=== PATIENT | male | born 1940 | race Caucasian/White ===

== ENCOUNTER 2021-02-15 06:47 | Inpatient (IN) | payer MEDICARE ==
[~2021-02-15] VITALS: Ht 177.8 cm; Wt 107.8 kg
[2021-02-16] MEDS ORDERED: ONDANSETRON 4 MG (ZOFRAN) ORAL DISSOLVE TAB PO PRN (06:00)
[2021-02-16] MEDS ORDERED: LOPERAMIDE 2 MG (IMODIUM) TABLET PO PRN (06:00)
[2021-02-16] MEDS ORDERED: FLEET ENEMA ADULT 1 EA BTL PR PRN (06:00)
[2021-02-16] MEDS ORDERED: LACTULOSE SYRUP 10GM/15ML (ENULOSE) 30ML UDC PO PRN (06:00)
[2021-02-16] MEDS ORDERED: DOCUSATE SODIUM 100 MG (COLACE) CAP PO PRN (06:00)
[2021-02-16] MEDS ORDERED: diphenhydrAMINE 25 MG TAB (BENADRYL) PO PRN (06:00)
[2021-02-16] MEDS ORDERED: guaiFENesin/CODEINE (ROBITUSSIN AC) 10ML UDC PO PRN (06:00)
[2021-02-16] MEDS ORDERED: ALPRAZolam 0.25 MG (XANAX) TAB PO PRN (06:00)
[2021-02-16] MEDS: SENNA W/DOCUSATE (SENOKOT S) TABLET PO SCH ×2 (09:00→20:16)
[2021-02-16] MEDS ORDERED: polyethylene glycoL POWDER 17 GM (MIRALAX) PACK PO SCH (09:00)
[2021-02-16 13:08] VITALS: BP 132/63
--- OUTSIDE RECORDS SUMMARY | 2021-02-16 13:09 | XMS REPORT | Encounter Summary ---
[facility] Address Unknown Phone Unavailable Care Team Providers Care [employer] Project Manager Name Role Phone Salvador Rasmussen MD PCP Reason for Visit * Cardiac Procedures (Routine) - Closed Diagnoses / Procedures Referred By Contact Referred To Conta ct Specialty Diagnoses Pain in both lower legs Procedures Ultrasound MYRNA With and Without Toe Pressures Bilateral Toby Bruno MD [address] [place] [id number] [facility] [address] [place] [phone] Cardiology Referral ID Status Reason Start Date Expiration Visits Vi sits Date Requested Authorized [id number] Closed 02/02/2021 01/28/2022 1 1 Encounter Details Care Team Description Date Type Department Pain in both lower legs 02/10/2021 [facility] [address] [place] [phone] Social History Date Tobacco Use Types Packs/Day Years Used Never Smoker Smokeless Tobacco: Never Used Comments Alcohol Use Standard Drinks/Week Never 0 (1 standard drink = 0.6 o z pure alcohol) Sex Assigned at Date Recorded Not on file Industry Job Start Date Occupation Not on file Not on file Not on file Date Recorded COVID-19 Exposure Response 02/10/2021 2:36 PM CDT In the last month, have you been in contact with No / Unsure someone who was confirmed or suspected to have Coronavirus / COVID-19? documented as of this encounter Plan of Treatment Care Team Description Date Type Specialty Oriana Blandon, PROPERTY DISPOSAL MANAGER-[employer] PROJECT MANAGER [address] [place] [phone] 08/04/2021 Office Visit Cardiology documented as of this encounter Procedures Comments Procedure Name Priority Date/Time Associated Diag nosis MYRNA W/WO TOE PRESSURES Routine 02/10/2021 Pain in both lower legs BILAT VASC 3:11 PM CDT documented in this encounter Results * MYRNA W/WO TOE PRESSURES BILAT VASC (02/10/2021 3:11 PM CDT) Modality Anatomical Region Laterality Ultrasound Lower Leg, Ankle, Foot Specimen Narrative [facility] - 02/11/2021 8:17 AM CDT Date of Exam:02/10/21 MR#: [id number] Patient: Macario Nelson Referring Physician: Toby Bruno Date of : 1940 Technologist: Reta Cheng RDCS, RVT INDICATION: Pain in both lower legs PREVIOUS EXAM: Interpreting Physician: DIA Interpretation: Normal Performing Organization Address City/State/ZIP Code P kelly Number [facility] documented in this encounter Visit Diagnoses Diagnosis Pain in both lower legs documented in this encounter Care Teams Start Date End Date [employer] Project Manager Relationship Specialty 01/21/21 Salvador Rasmussen MD PCP - General Family [address] [place] [address] documented as of this encounter
--- OUTSIDE RECORDS SUMMARY | 2021-02-16 13:09 | XMS REPORT | Encounter Summary ---
[facility] Address Unknown Phone Unavailable Care Team Providers Care Insurance Verification Clerk Name Role Phone Salvador Rasmussen MD PCP Reason for Referral * Consultation (Routine) - Authorized Diagnoses / Procedures Referred By [facility] Palpitations PVC (premature ventricular contraction) Toby Bruno MD [address] [place] [phone] Olivier Coelho MD [address] [place] [id number] Cardiology Referral ID Status Reason Start Date Expiration Visits Vi sits Date Requested Authorized [id number] Authorized Patient Request 02/02/2021 01/28/2022 1 1 * Cardiac Procedures (Routine) - Authorized Diagnoses / Procedures Referred By Contact Referred To [facility] Specialty Diagnoses Atherosclerosis of [place] coronary artery of [place] heart with angina pectoris (HCC) Procedures Ultrasound Doppler Carotid Tboy Bruno MD [address] [place] [phone] [facility] [address] [place] [phone] Cardiology Referral ID Status Reason Start Date Expiration Visits Vi sits Date Requested Authorized [id number] Authorized 02/02/2021 01/28/2022 1 1 * Cardiac Procedures (Routine) - Closed Diagnoses / Procedures Referred By Contact Referred To [facility] Specialty Diagnoses Pain in both lower legs Procedures Ultrasound MYRNA With and Without Toe Pressures Bilateral Toby Bruno MD [address] [place] [phone] [facility] [address] [place] [address] Cardiology Referral ID Status Reason Start Date Expiration Visits Vi sits Date Requested Authorized [id number] Closed 02/02/2021 01/28/2022 1 1 * Cardiac Procedures (Routine) - Closed Diagnoses / Procedures Referred By Contact [facility] Atherosclerosis [place] coronary artery of [place] heart with angina pectoris (HCC) Nonrheumatic aortic valve stenosis Palpitations PVC (premature ventricular contraction) Shortness of breath Procedures Transthoracic Echo (TTE) Complete TRANSTHORACIC ECHO (TTE) COMPLETE TRANSTHORACIC ECHO (TTE) COMPLETE W/ DOPPLER TRANSTHORACIC ECHO (TTE) COMPLETE W/ CONTRAST TRANSTHORACIC ECHO (TTE) COMPLETE NO DOPPLER NO COLOR Toby Bruno MD [address] [place] [phone] [facility] [address] [place] [address] Cardiology Referral ID Status Reason Start Date Expiration Visits Vi sits Date Requested Authorized [id number] Closed 02/02/2021 01/28/2022 1 1 Encounter Details Care Team Description Date Type Department Toby Bruno MD [address] [place] [id number] Atherosclerosis of [place] coronary arter y of [place] heart with angina pectoris (HCC) (Primary Dx); Shortness of breath; Palpitations; Nonrheumatic aortic valve stenosis; PVC (premature ventricular contraction); Pain in both lower legs; Essential hypertension; Hyperlipidemia, unspecified hyperlipidemia type; Class 1 obesity with serious comorbidity and body mass index (BMI) of 33.0 to 33.9 in adult, unspecified obesity type 02/02/2021 Consult [facility] Cardiology [address] [phone] Social History Date Tobacco Use Types Packs/Day Years Used Never Smoker Smokeless Tobacco: Never Used Comments Alcohol Use Standard Drinks/Week Never 0 (1 standard drink = 0.6 o z pure alcohol) Sex Assigned at Date Recorded Not on file Industry Job Start Date Occupation Not on file Not on file Not on file Date Recorded COVID-19 Exposure Response 02/02/2021 2:52 PM CDT In the last month, have you been in contact with No / Unsure someone who was confirmed or suspected to have Coronavirus / COVID-19? documented as of this encounter Last Filed Vital Signs Reading Time Taken Comments Vital Sign 122/64 02/02/2021 2:52 PM CDT Blood Pressure 65 02/02/2021 2:52 PM CDT Pulse - - Temperature 16 02/02/2021 2:52 PM CDT Respiratory Rate 98% 02/02/2021 2:52 PM CDT Oxygen Saturation - - Inhaled Oxygen Concentration 105 kg (232 lb) 02/02/2021 2:52 PM CDT Weight 177.8 cm (5' 10") 02/02/2021 2:52 PM CDT Height 33.29 02/02/2021 2:52 PM CDT Body Mass Index documented in this encounter Patient Instructions * Patient Instructions* Xiang Riddle II, RN - 02/02/2021 3:00 PM CDT Images from the original note were not included. Check your blood pressure at least 2 times a week and keep a log. If your blood pressure is consistently higher than 130/80 then call our office and report it. Call our office if you have any questions or concerns. Patient Education Patient Education Low Salt Diet About this topic Sodium is a type of mineral found in many foods. It may also be called "salt." S odium helps balance fluids in your body. Too much sodium may be bad for your hea lth. You may have to limit the amount of sodium in your food. Salt is known as sodium chloride. It is measured in grams (g) or milligrams (mg) . Salt or sodium in our diet comes from 3 main sources: Some sodium is naturally found in food. We may add salt to our food when we eat or cook. Processed foods give us most of the sodium in our diet. What will the results be? This diet may help lower your blood pressure. It may also help reduce extra wate r in your body. This may help kidney, heart, or liver problems. What changes to diet are needed? You need to know how much sodium is in the food you eat. Read food labels with c are. Choose foods that have 5% or less sodium in one serving. Remember, if you e at more than one serving, you will be getting more sodium. It may take a while f or your sense of taste to get used to food with less sodium. Be patient with you rself. You may be surprised at how well you will do. Try to aim for a diet that has 2000 mg (2 g) or less sodium in it each day. The Food & Drug Administration (FDA) has set up guidelines for food labels. These will help you make healthy choices. Look for these terms on food packages: Sodium-free: Less than 5 mg in each serving. These are safe to eat. Very low sodium: 35 mg of sodium or less in each serving. These are safe to e at. Low sodium: 140 mg of sodium or less in each serving. You need to eat these w ith care. Reduced sodium: At least 25% less sodium than is most often found in each ser ving. These foods are still high in sodium. Light in sodium: 50% less sodium in each serving. Unsalted, no added salt, and without added salt: No salt is added during proc essing, but the food may still have sodium. Read the food label and check the so dium content before eating. What foods are good to eat? You can control the amount of sodium in foods you make at home. Fresh foods that you cook are most often lower in sodium. Regular bread, unsalted crackers, dry cereal, cooked rice, pasta, quinoa, and corn tortillas. Fresh, frozen, low sodium, or salt-free canned vegetables. Limit vegetable ju ice or tomato juice to 1/2 cup (120 mL) each day. Fresh, frozen, canned, or dried fruit without salt added Nonfat or low-fat milk and yogurt, low-sodium cottage cheese, and other chees es low in sodium. Fresh or frozen beef, veal, singh, pork, poultry, fish, shellfish Low sodium canned meats, frozen dinners with less than 600 mg sodium Unsalted corn, safflower, sunflower, and soybean oils and nuts and seeds Egg and egg substitutes without added sodium Dried peas, beans, and low-sodium peanut butter All plain oils and low-sodium salad dressing Low-sodium broths, soups, soy sauce, condiments, and snack foods Pepper, herbs, spices, vinegar, lemon or [place] juice Low-sodium carbonated drinks What foods should be limited or avoided? Foods that are prepackaged or canned are most often high in sodium. Foods to contreras id include: Salted breads, rolls, crackers, biscuits, cornbread Quick breads, self-rising flours, biscuit mixes, regular bread crumbs, instan t hot cereals Commercially prepared rice, pasta, or stuffing mixes; potatoes and vegetable mixes Regular canned vegetables and juices, vegetables with sauce, and pickled vege tables Frozen vegetables with seasonings and sauces Processed fruits with salt or sodium Malted and chocolate milk and buttermilk Regular and processed cheese and spreads Smoked, cured, salted, or canned meat, fish, or poultry such as montero, sausag es, sardines, chipped beef, hot dogs, cold cuts, and frozen breaded meats Salted and canned peas, beans, and olives Salted snack foods and nuts Oils mixed with high-sodium parts such as salad dressing Meat tenderizers, seasoning salt, and most flavored vinegars Ketchup, bouillon cubes, salt, sea salt, kosher salt, onion salt, garlic salt , and pink Himalayan salt Commercially softened water What can be done to prevent this health problem? Check with your doctor before using salt substitutes. Also, check the labels whe n taking goct-jyt-qomdjyc (OTC) drugs such as laxatives and antacids. These can have a high sodium content. When do I need to call the doctor? Call your doctor if you have questions about this diet. Talk to a dietitian. The y can help you find hidden sources of sodium in the food you eat. Helpful tips Use the nutrition facts labels as a guide to look for foods lower in sodium. Do not use salt when eating or cooking. Select fresh fruits and vegetables for snacks. If you are eating out, ask the sushi chef to cook your food without salt, or choose foods without sauces. Season your food with herbs and spices. Drain and rinse canned beans and vegetables that contain sodium. Eat foods with potassium. Potassium helps counter the effects of sodium. This may help lower your blood pressure. Foods high in potassium include: Potatoes, tomatoes, bananas, oranges, cantaloupe, beans, and greens. Where can I learn more? [employer] https://www.heart.org/en/healthy-living/healthy-eating/eat-smart/sodium/how-to-r educe-sodium [employer] [employer] https://www.heart.org/en/healthy-living/healthy-eating/eat-smart/nutrition-basic s/dnuy-yvknrwhcx-kelpji NHS https://www.nhs.uk/live-well/eat-well/ajiz-yga-y-toqhr-bnqc-ooeq/ UpToDate http://www.[employer]/contents/hai-tjrvyl-avry-bbsaqw-jer-kutdwp Last Reviewed Date 2019-04-11 Consumer Information Use and Disclaimer This information is not specific medical advice and does not replace information you receive from your health care provider. This is only a brief summary of gen eral information. It does NOT include all information about conditions, illnesse s, injuries, tests, procedures, treatments, therapies, discharge instructions or life-style choices that may apply to you. You must talk with your health care p crispin for complete information about your health and treatment options. This i nformation should not be used to decide whether or not to accept your health car e providers advice, instructions or recommendations. Only your health care pr enmaer has the knowledge and training to provide advice that is right for you. Copyright Copyright 2020 Man[employer] by [employer]. and its affiliates and/or licensors. All rights reserved. Patient Education Patient Education Low Cholesterol, Saturated Fat, and Trans Fat Diet About this topic Cholesterol, saturated fat, and trans fat are in many foods. These may raise you r blood cholesterol levels. If your cholesterol is too high, this can cause heal th problems in your heart, liver, kidneys, and even your eyes. The luna to loweri ng your risk of heart problems is to lower your bad fat intake. Saturated fats and trans fats are the bad fats. These fats clog your arteries an d raise your bad cholesterol. Saturated fats and trans fats are solid fats at ro om temperature. Saturated fats are animal fats. Trans fats are manmade fats. The y add flavor to a lot of packaged foods. Staying away from saturated and trans f ats will help your heart. When you do eat foods with fat, make sure they have the good fats. Monounsaturat ed and polyunsaturated fats are good fats. These fats help raise your good amilcar sterol and protect your heart. General How to Lower Fat and Cholesterol in Your Diet Read the labels of the foods you buy from the market to find out how much fat is present. Under 5% of total fat on a label means it is "low fat". Over 20% of total fat on a label means it is high fat. Eat high fiber foods, like soluble fiber. This type of fiber helps lower chol esterol in the body. Choose oatmeal, fruits (like apples), beans, and nuts to ge t the most soluble fiber. Eat foods high in omega-3 fatty acids like santiago seeds, walnuts, salmon, tuna, trout, gutierrez, flaxseed, and soybeans. These foods help keep the heart healthy. Limit your bad fat and oil intake. Stay away from butter, stick margarine, shortening, lard, and palm and coconu t oil. Pick plant-based spreads instead. Limit mayonnaise, salad dressings, gravies, and sauces, unless it is made fro m low-fat ingredients. Limit chocolate. Do not eat high-fat processed foods like hot dogs, montero, sausage, ham and ot her luncheon meats high in fat, and some frozen foods. Pick fish, chicken, turke y, and lean meats instead. Eat more dried beans, lentils, and tofu to get your protein. Do not eat organ meats, like liver. Choose nonfat or low-fat milk, yogurt, and cheese. Use light or fat-free cream cheese and sour cream. Eat lots of fruits and vegetables. Pick whole grain breads, cereals, pastas, and rice. Do not eat snacks that are high in fats like granola, cookies, pies, pastries , doughnuts, and croissants. Stay away from deep fried foods. Help When Cooking Remove the fat portion of meats and the skin from poultry before cooking. Bake, broil, grill, poach, or roast poultry, fish, and lean meats. Drain and throw away the fat that drains out of meat as you cook it. Try to add little or no fat to foods. Use olive or canola oil for cooking or baking. Steam your vegetables. Use herbs or no-oil marinades to flavor foods. Who should use this diet? This diet is for people who are at high risk of getting health problems like hea rt disease, high blood pressure, diabetes, and others. This diet is also good fo r all people to follow to keep your heart healthy. What foods are good to eat? Foods with good fats are: Canola, peanut, and olive oil Safflower, soybean, and corn oil Walnuts, almonds, cashews, and peanuts Pumpkin and sunflower seeds Bunn and tuna Tofu Soymilk Avocado What foods should be limited or avoided? Stay away from these types of foods that have saturated fats: Whole fat dairy products like cheese, ice cream, whole milk, and cream Palm and coconut oils High-fat meats like beef, singh, poultry with the skin, montero, and sausage Butter and lard Stay away from these types of foods that may have trans fat: Cookies, cakes, candy, doughnuts, baked goods, muffins, pizza dough, and pie crusts that are packaged Fried foods Frozen dinners Chips and crackers Microwave popcorn Stick margarine and vegetable shortenings Helpful tips To help stay away from saturated fat: Pick lean cuts of meat Take the skin off chicken and turkey or pick skinless Pick low-fat cheese, milk, and ice cream Use liquid oils when cooking and baking, such as olive oil and canola oil To help stay away from trans fat: Look at your labels. Choose foods with 0% trans fat. Read the ingredient list . Avoid foods with partially hydrogenated oil in the ingredient list. This means there is trans fat in the product. Where can I learn more? [employer] http://www.heart.org/HEARTORG/Conditions/Cholesterol/PreventionTreatmentofHighCh olesterol/Amao-Ivya-Wccu_AFH_863470_Cqzcawm.jsp Last Reviewed Date 2019-01-31 Consumer Information Use and Disclaimer This information is not specific medical advice and does not replace information you receive from your health care provider. This is only a brief summary of gen eral information. It does NOT include all information about conditions, illnesse s, injuries, tests, procedures, treatments, therapies, discharge instructions or life-style choices that may apply to you. You must talk with your health care p crispin for complete information about your health and treatment options. This i nformation should not be used to decide whether or not to accept your health car e providers advice, instructions or recommendations. Only your health care pr jaret has the knowledge and training to provide advice that is right for you. Copyright Copyright 2020 [employer] and its affiliates and/or licensors. All rights reserved. Patient Education Patient Education Exercise The Basics Written by the doctors and editors at [employer] What are the benefits of exercise?Exercise has many benefits. It can: Burn calories, which helps people control their weight Help control blood sugar levels in people with diabetes Lower blood pressure, especially in people with high blood pressure Lower stress and help with depression Keep bones strong, so they don't get thin and break easily Lower the chance of dying from heart disease What are the main types of exercise?There are 3 main types of exercise. T hey are: Aerobic exercise Aerobic exercise raises a person's heart rate. Examples of aerobic exercise are walking, running, or swimming. Resistance training Resistance training helps make your muscles stronger. People can do this type of exercise using weights, exercise bands, or weight ma chines. Stretching Stretching exercises help your muscles and joints move more ea sily. It's important to have all 3 types of exercise in your exercise program. That wa y, your body, muscles, and joints can be as healthy as possible. Should I talk to my doctor or nurse before I start exercising?If you have not exercised before or have not exercised in a long time, talk with your doctor or nurse before you start a very active exercise program. If you have heart disease or risk factors for heart disease (like high blood pre ssure or diabetes), your doctor or nurse might recommend that you have an exerci se test before starting an exercise program. When you start an exercise program, start slowly. For example, do the exercise a t a slow pace or for a few minutes only. Over time, you can exercise faster and for longer periods of time. What should I do when I exercise?Each time you exercise, you should: Warm up Warming up can help keep you from hurting your muscles when you e xercise. To warm up, do a light aerobic exercise (such as walking slowly) or str etch for 5 to 10 minutes. Work out During a workout, you can walk fast, swim, run, or use an exerci se machine, for example. You should also stretch all of your joints, including y our neck, shoulders, back, hips, and knees. At least 2 times a week, you can add resistance training exercises to your workout. Cool down Cooling down helps keep you from feeling dizzy after you exerci se and helps prevent muscle cramps. To cool down, you can stretch or do a light aerobic exercise for 5 minutes. How often should I exercise?Doctors recommend that people exercise at el st 30 minutes a day, on 5 or more days of the week. If you can't exercise for 30 minutes straight, try to exercise for 10 minutes at a time, 3 or 4 times a day. Even exercising for shorter amounts of time can be good for you, especially if it means spending less time sitting. When should I call my doctor or nurse?If you have any of the following sy mptoms when you exercise, stop exercising and call your doctor or nurse right aw ay: Pain or pressure in your chest, arms, throat, jaw, or back Nausea or vomiting Feeling like your heart is fluttering or racing very fast Feeling dizzy or faint What if I don't have time to exercise?Many people have very busy lives an d might not think that they have time to exercise. But it's important to try to find time to exercise, even if you are tired or work a lot. Exercise can increas e your energy level, which might even help you get more work done. There are many ways that you can be more active. For example, you can: Take the stairs instead of the elevator Park in a parking space that is farther away from the door Take a longer route when you walk from one place to another Spending a lot of time sitting still for example, watching television or wor angelica on the computer can be bad for your health. Try to get up and move arou nd whenever you can. Even small amounts of movement, like short walks or doing h ousehold chores, can help improve your health. What else should I do when I exercise?To exercise safely and avoid proble ms, be sure to: Drink fluids during and after exercising (but avoid "energy drinks" with a lo t of caffeine) Avoid exercising outside if it is too hot or cold Wear layers of clothes, so that you can take them off if you get too hot Wear shoes that fit well and support your feet All topics are updated as new evidence becomes available and our peer review pro cess is complete. This topic retrieved from [employer] on: October 13, 2020. Topic 90865 Version 20.0 Release: 29.2.2 - C29.130 2020[employer] and/or its affiliates.All rights reserved. Consumer Information Use and Disclaimer This information is not specific medical advice and does not replace information you receive from your health care provider. This is only a brief summary of gen eral information. It does NOT include all information about conditions, illnesse s, injuries, tests, procedures, treatments, therapies, discharge instructions or life-style choices that may apply to you. You must talk with your health care p crispin for complete information about your health and treatment options. This i nformation should not be used to decide whether or not to accept your health car e provider's advice, instructions or recommendations. Only your health care prov ider has the knowledge and training to provide advice that is right for you.The use of [employer] content is governed by the [employer] Terms of Use. 2020 [employer]. All rights reserved. Copyright 2020[employer] and/or its affiliates.All rights reserved. documented in this encounter Progress Notes * Toby Bruno MD - 02/02/2021 3:00 PM CDT Images from the original note were not included. [facility] Consult Note Patient: Macario Nelson PCP: Salvador Rasmussen MD Date: 1940 Date of Service: 02/02/2021 Allergies Allergies Allergen Reactions Pdqjsyv-Pvz-Nxk Reductase Inhibitors Chief Complaint Coronary artery disease History of Present Illness Mr. Nelson presents to establish cardiology care. He has a fairly extensive car diac history remarkable for at least 1 previous non-ST elevated myocardial infar ction and 16 total drug-eluting stents. He has brought with him multiple cardia c records. His most recent echo 2018 demonstrated normal LV systolic function w ith mild LVH, grade 1 diastolic dysfunction, and mild aortic stenosis. His most recent stent was in July this year to distal ID. All his other stents were said to be patent. He had a nuclear stress test in approximately September which d emonstrated normal perfusion. He does have chronic stable angina with prolonged walking which begins with shortness of breath followed by mild chest discomfort. He does take a nitroglycerin infrequently which relieves his symptoms. He has mild chronic orthopnea but does not note paroxysmal nocturnal dyspnea. He has chronic edema which is controlled with his furosemide regimen. He has chronic kidney disease stage IV and is followed by certified pest control technician and [place]. He is plann ing to see Dr. Pacheco for his ventricular arrhythmias. Prior to relocating he re he had an event recorder. The results of that are not available. The patien t states he will forward that to us through my chart when he finds it at home. Cardiac Risk Factors [x] Hypertension [x] Family h/o heart disease [] Sedentary Lifestyle [x] Hyperlipidemia [x] Prior h/o heart disease [x] Age (male 45+ female 55+) [] Tobacco Abuse [x] Obesity [] Menopausal [] History of Tobacco Use [] Gout [] Other ASCVD [] Diabetes Mellitus [] Elevated hs CRP Past History Past Medical History: Diagnosis Date Asymptomatic PVCs CAD (coronary artery disease) Dyslipidemia Hx of heart artery stent Hypertension Ischemic cardiomyopathy Stable angina (HCC) Past Surgical History: Procedure Laterality Date APPENDECTOMY HYDROCELE EXCISION / REPAIR THROMBOLYSIS TOTAL KNEE ARTHROPLASTY Social History Social History Tobacco Use Smoking status: Never Smoker Smokeless tobacco: Never Used Substance Use Topics Alcohol use: Never Drug use: Never Family History Family History Problem Relation Age of Onset Heart attack Brother Coronary artery disease Brother Review of Systems Review of Systems Constitutional: Negative. HENT: Negative. Eyes: Positive for visual disturbance (wears glasses). Cardiovascular: Positive for claudication and palpitations. Respiratory: Positive for shortness of breath. Endocrine: Negative. Hematologic/Lymphatic: Negative. Skin: Negative. Musculoskeletal: Positive for joint pain and muscle cramps. Gastrointestinal: Negative. Genitourinary: Negative. Neurological: Positive for numbness. Psychiatric/Behavioral: Negative. Allergic/Immunologic: Negative. Medications Today Current Outpatient Medications: ascorbic acid-collagen 125-740 mg capsule, Take 125 mg by mouth 1 (one) sebastian e each day., Disp: , Rfl: aspirin 81 mg tablet, delayed release, Take 81 mg by mouth 1 (one) time eac h day., Disp: , Rfl: cholecalciferol, vitamin D3, 125 mcg (5,000 unit) tablet, Take 5,000 Units by mouth 1 (one) time each day., Disp: , Rfl: cinnamon bark 500 mg capsule, Take 500 mg by mouth 1 (one) time each day., Disp: , Rfl: clopidogreL (PLAVIX) 75 mg tablet, Take 75 mg by mouth 1 (one) time each da y., Disp: , Rfl: cyanocobalamin 100 mcg tablet, Take 100 mcg by mouth 1 (one) time each day. , Disp: , Rfl: furosemide (LASIX) 40 mg tablet, Take 40 mg by mouth 2 (two) times per day if needed., Disp: , Rfl: grape seed extract 50 mg capsule, Take 50 mg by mouth 1 (one) time each day ., Disp: , Rfl: multivitamin (THERAGRAN) tablet tablet, Take 1 tablet by mouth 1 (one) time each day., Disp: , Rfl: niacin (SLO-NIACIN) 500 mg CR tablet, Take 500 mg by mouth 1 (one) time eac h day., Disp: , Rfl: nitroglycerin (NITROSTAT) 0.4 mg SL tablet, Place 0.4 mg under the tongue e very 5 (five) minutes if needed., Disp: , Rfl: omega 2-nlc-ufm-fish oil 1,000 mg (120 mg-180 mg) capsule, Take 2 capsules by mouth 1 (one) time each day., Disp: , Rfl: omeprazole (PriLOSEC) 20 mg capsule, Take 10 mg by mouth 1 (one) time each day if needed., Disp: , Rfl: red yeast rice 600 mg capsule, Take 600 mg by mouth 1 (one) time each day., Disp: , Rfl: fnzbiud-jylm-fuqkt-oreg-capryl 100 mg-150 mg- 50 mg-150 mg capsule, Take 10 0 mg by mouth 1 (one) time each day., Disp: , Rfl: carvediloL (COREG) 12.5 mg tablet, Take 12.5 mg by mouth 1 (one) time each day. (Patient not taking: Reported on 02/02/2021 ), Disp: , Rfl: fenofibrate (TRIGLIDE) 160 mg tablet, Take 160 mg by mouth 1 (one) time eac h day. (Patient not taking: Reported on 02/02/2021 ), Disp: , Rfl: lisinopriL (Zestril) 5 mg tablet, Take 5 mg by mouth 1 (one) time each day. (Patient not taking: Reported on 02/02/2021 ), Disp: , Rfl: Physical Exam BP 122/64 (BP Location: Right arm, Patient Position: Sitting) | Pulse 65 | Res p 16 | Ht 1.778 m (5' 10") | Wt 105 kg (232 lb) | SpO2 98% | BMI 33.29 kg/m Body mass index is 33.29 kg/m. Physical Exam Vitals and nursing note reviewed. Constitutional: General: He is not in acute distress. Appearance: Normal appearance. He is obese. Neck: Thyroid: No thyroid mass, thyromegaly or thyroid tenderness. Vascular: No carotid bruit or JVD. Cardiovascular: Rate and Rhythm: Normal rate and regular rhythm. No extrasystoles are presen t. Chest Wall: PMI is not displaced. Pulses: Normal pulses and intact distal pulses. Heart sounds: Murmur heard. Systolic murmur is present with a grade of 1/6. Gallop present. S4 sounds present. Pulmonary: Effort: Pulmonary effort is normal. Breath sounds: Normal breath sounds. Abdominal: General: Abdomen is flat. Palpations: Abdomen is soft. Tenderness: There is no abdominal tenderness. Musculoskeletal: General: Normal range of motion. Cervical back: Full passive range of motion without pain, normal range of mot ion and neck supple. Skin: General: Skin is warm and dry. Neurological: General: No focal deficit present. Mental Status: He is alert and oriented to person, place, and time. Psychiatric: Attention and Perception: Attention and perception normal. Mood and Affect: Mood and affect normal. Speech: Speech normal. Behavior: Behavior normal. Behavior is cooperative. Thought Content: Thought content normal. Cognition and Memory: Cognition and memory normal. Judgment: Judgment normal. Does Macario Nelson have known CAD? yes, has not had an LA within the last 3 yea rs. or most recent EF is greater than 40% Does Macario Nelson have a diagnosis of heart failure? no. Does Macario Nelson have a diagnosis of heart failure?no. Does Macario Nelson currently use tobacco ? no. Is Macario Nelson BMI < 18.5 or > 25? Yes, provided patient appropriate education. Does Macario Nelson have a diagnosis of diabetes? Does the patient have a diagno sis of diabetes?: No Labs No results found for: WBC, HGB, HCT, MCV, PLT No results found for: GLUCOSE, CALCIUM, NA, K, CO2, CL, BUN, CREATININE, ALT, SM A, PROT No results found for: CHOL, HDL, LDLCALC, TRIG, CHOLHDL, LDLDIRECT No results found for: INR, PTT No results found for: BNP Impression 1. 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 Most recent distal LAD 07/26 - ECG 12 lead; Future - ECG 12 lead - Transthoracic Echo (TTE) Complete; Future - Ultrasound Doppler Carotid; Future 2. Shortness of breath Exertional. Chronic stable - Transthoracic Echo (TTE) Complete; Future 3. Palpitations ECG today demonstrates frequent PVCs and bigeminal pattern. Recent event record er not available - Transthoracic Echo (TTE) Complete; Future 4. Nonrheumatic aortic valve stenosis Mild by echo 2019. Due for reevaluation. - Transthoracic Echo (TTE) Complete; Future 5. PVC (premature ventricular contraction) Frequent on rest ECG. To significance from recent event recorder not known - Transthoracic Echo (TTE) Complete; Future 6. Pain in both lower legs Rule out significant peripheral arterial disease. - Ultrasound MYRNA With and Without Toe Pressures Bilateral; Future 7. Essential hypertension Normotensive on current meds 8. Hyperlipidemia, unspecified hyperlipidemia type Unable to take statins due to previous side effects. Treating with supplements 9. Class 1 obesity with serious comorbidity and body mass index (BMI) of 33.0 to 33.9 in adult, unspecified obesity type Plan 1. Current medications are reviewed and continued. 2. Add isosorbide mononitrate 30 mg daily. 3. Echocardiogram. 4. MYRNA. 5. Carotid Doppler. 6. We will review recent event recorder when available. 7. Referral to Dr. Pacheco at [facility] at patient request. 8. Cardiac follow-up here in 6 months IToby M.D. personally performed the service described in this do cumentation; it is accurate and complete. Scribed by Xiang Riddle II, RN and electronically signed by Toby Bruno M.D. Electronically signed by: Toby Bruno M.D. 02/02/2021 3:25 PM documented in this encounter Plan of Treatment Care Team Description Date Type Specialty Oriana Blandon, KETTLE LOADER-GLAZE CARRIER [address] [place] [id number] 08/04/2021 Office Visit Cardiology Order Schedule Name Type Priority Associated Diag noses Expected: 02/09/2021 (Approximate), Expi res: 03/04/2021 Ultrasound Doppler Vascular Routine Atheroscler osis of [place] Carotid Ultrasound coronary artery of [place] heart with angina pectoris (HCC) Order Schedule Name Type Priority Associated Diag noses Expected: 02/16/2021 (Approximate), Expi res: 03/04/2021 Ambulatory referral to Outpatient Routine Palpita tions Cardiac Electrophysiology Referral PVC (prematu re ventricular contraction) documented as of this encounter Procedures Comments Procedure Name Priority Date/Time Associated Diag nosis ECG 12-LEAD Routine 02/03/2021 Atherosclerosis of [place] 12:46 PM CDT coronary artery of [place] heart with angina pectoris (HCC) documented in this encounter Results * MYRNA W/WO TOE PRESSURES BILAT VASC (02/10/2021 3:11 PM CDT) Modality Anatomical Region Laterality Ultrasound Lower Leg, Ankle, Foot Specimen Narrative [facility] - 02/11/2021 8:17 AM CDT Date of Exam:02/10/21 MR#: [id number] Patient: Macario Nelson Referring Physician: Toby Bruno Date of : 1940 Technologist: Reta Cheng RDCS, RVT INDICATION: Pain in both lower legs PREVIOUS EXAM: Interpreting Physician: DIA Interpretation: Normal Performing Organization Address City/State/ZIP Code P kelly Number [facility] * Transthoracic Echo (TTE) Complete (02/05/2021 11:20 AM CDT) Modality Anatomical Region Laterality Ultrasound Specimen Narrative [facility] - 02/09/2021 4:59 PM CDT Name: Macario Nelson Date of study: 02/05/21 Date of : 1940 Medical Record: [id number] Room Number: Accession Number: [id number] Ht: 5'10" Wt: 232 BSA: 2.22 Senior Counsel Commercial: DUNCAN Thakur BP: 105/72 HR: Ordering Physician: Toby Bruno MD Study Performed: Transthoracic Echocardiogram Indication/History: Atherosclerosis of [place] coronary artery, nonrheumatic aortic valve stenosis, palpitations, PVC and shortness of breath. Procedure: Complete two dimensional transthoracic echocardiogram with spectral doppler and color flow evaluation. Study quality is technically adequate. Findings: Left ventricle: Left ventricular chamber size is normal. There is no evidence of left ventricular hypertrophy. The left ventricular function is normal. Estimated ejection fraction 60-65%. No evidence of regional wall motion abnormalities. Diastolic function is abnormal. Right ventricle: Right ventricular chamber size is normal. Right ventricular function is normal The right ventricular wall thickness is normal. Atria: Left atrial size is mildly enlarged. Left atrial volume is mildly increased. Right atrial size is normal. Aortic root: Aortic root is normal in size. Ascending aorta is normal in size. Aortic valve: The aortic valve is trileaflet Aortic stenosis is moderate. Mild to moderate (1-2+) aortic regurgitation. Mitral valve: The mitral valve is structurally normal. Mitral stenosis is absent. Moderate (2+) mitral regurgitation. Tricuspid valve: Morphologically normal tricuspid valve. Tricuspid stenosis is absent. Trace to mild (tr-1+) tricuspid regurgitation. Pulmonic valve: Morphologically normal pulmonic valve. Pulmonic stenosis is absent. Trace pulmonic regurgitation. Pulmonary arterial systolic pressure: Estimated pulmonary arterial systolic pressure is 35.5 mmHg. Pulmonary artery systolic pressures are borderline increased. Inferior vena cava: The inferior vena cava is normal in size and does collapse with inspiration consistent with normal right atrial pressures. Mass: No intracardiac mass or thrombus is noted. Effusion: Pericardial effusion is not visualized.. Conclusions: 1. Normal left-ventricular systolic func tion with EF 60 to 65% 2. 1-2+ aortic regurgitation 3. 2+ mitral regurgitation 4. Trace to 1+ tricuspid regurgitation 5. Borderline pulmonary hypertension No prior echo available Doppler ECHO DIMENSIONS Aortic Valve: LV Diastolic Diameter Peak Velocity (m/sec) 3.06 (3.7 5.8cm) 4.37 Peak Gradient (mmHg) 37.4 LV Systolic Diameter Mean Gradient (mmHg) 23.4 (2.0-.4cm) 3.66 Valve Area (cm2) IV Septal Thickness LV Peak Velocity (m/sec) (.6 1.1cm) 1.37 LVOTd (cm) 2.39 LV Posterior Wall Thickness AI EROA (cm2) (.6 1.1cm) 2.03 RV Max Short [place] Mitral Valve: (4.4cm) 2.13 Peak Velocity (m/sec) RV Wall Thickness E-Velocity (m/sec) (<.7cm) 1.05 A-Velocity (m/sec) Left Atrium Deceleration Time (m/sec) A-P (1.9 4.0cm) 2.60 Medial e I-S (3.0 5.5cm) 7.08 Lateral e Volume (16-34mL/m2) 30.0 E/e Right Atrium Peak Gradient (mmHg) I-S (3.0 5.5cm) 5.02 Mean Gradient (mmHg) Aortic Root P Time (msec) (2.2 3.6cm) 2.49 Valve Area (cm2) Ascending Aorta MR PISA (cm) (2.1 3.4cm) MR EROA (cm2) Cardiac Output (Lpm) Stroke Volume (mL) Stroke Vol Index (mL/m2) Tricuspid Valve: LV EDV BP (mL) Peak TR Velocity (m/sec) 2.76 LV ESV BP (mL) Estimated RA Pressure (mmHg) 5 LV Ejection Fraction (%) 60-65 Peak PA Systolic Pressure (mmHg) TAPSE(cm) 2.35 Pulmonic Valve: TASV(cm/sec) Peak Velocity (m/sec) 0.73 RVSP 35.5 Acceleration Time (msec) Performing Organization Address City/State/ZIP Code P kelly Number [facility] * ECG 12 lead (02/03/2021 12:46 PM CDT) Specimen Narrative [facility] ECG - 02/03/2021 12:46 PM CDT Sinus Rhythm -Frequent pvcs -ventricular bigeminy -Old anteroseptal infarct. - Nonspecific T-abnormality. Low voltage -possible pulmonary disease. ABNORMAL Performing Organization Address City/State/ZIP Code P kelly Number [facility] ECG documented in this encounter Visit Diagnoses Diagnosis Atherosclerosis of [place] coronary [place] heart with angina pectoris (HCC) - Primary Shortness of breath Palpitations Nonrheumatic aortic valve stenosis PVC (premature ventricular contraction) Pain in both lower legs Essential hypertension Hyperlipidemia, unspecified hyperlipide magen type Class 1 obesity with serious comorbidit y and body mass index (BMI) of 33.0 to 33.9 in adult, unspecified obesity type Atherosclerosis of [place] coronary [place] heart with angina pectoris (HCC) Nonrheumatic aortic valve stenosis Palpitations PVC (premature ventricular contraction) Shortness of breath Pain in both lower legs documented in this encounter Care Teams Start Date End Date Insurance Verification Clerk Relationship Specialty 01/21/21 Salvador Rasmussen MD PCP - General Family [address] [place] [address] documented as of this encounter
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
--- OUTSIDE RECORDS SUMMARY | 2021-02-16 13:09 | XMS REPORT | Encounter Summary ---
Author Author [facility] Organization [facility] Address Unknown Phone Unavailable Care Team Providers Care Binder Coverstitch Name Role Phone Salvador Rasmussen MD PCP Encounter Details Care Team Description Date Type Department 02/02/2021 Travel Social History Date Tobacco Use Types Packs/Day [...] Team Description Date Type Specialty Oriana Blandon, ARNP-SUPERINTENDENT STEVEDORING [address] [place] [id number] 08/04/2021 Office Visit Cardiology documented as of this encounter Visit Diagnoses Not on filedocumented in this encounter Care Teams Start Date End Date Binder Coverstitch Relationship Specialty 01/21/21 Salvador Rasmussen MD PCP - General Family [address] [place] [address] documented as of this encounter
--- OUTSIDE RECORDS SUMMARY | 2021-02-16 13:09 | XMS REPORT | Clinical Summary ---
Author Author [facility] Address Unknown Phone Unavailable Care Team Providers Care Tree Warden Name Role Phone Salvador Rasmussen MD PP Allergies Comments Active Allergy Reactions Severity Noted Date Xurwajk-Dtn-Jjc Reductase 02/02/2021 Inhibitors Medications End Date Status Medication Sig Dispensed Refills Start Date Active aspirin 81 mg tablet, Take 81 mg by 0 delayed release mouth 1 (one) time each day. Active nitroglycerin (NITROSTAT) Place 0.4 mg 0 0.4 mg SL tablet under the tongue every 5 (five) minutes if needed. Active omeprazole (PriLOSEC) 20 Take 10 mg by 0 mg capsule mouth 1 (one) time each day if needed. Active furosemide (LASIX) 40 mg Take 40 mg by 0 tablet mouth 2 (two) times per day if needed. Active clopidogreL (PLAVIX) 75 Take 75 mg by 0 mg tablet mouth 1 (one) time each day. Active red yeast rice 600 mg Take 600 mg 0 capsule by mouth 1 (one) time each day. Active niacin (SLO-NIACIN) 500 Take 500 mg 0 mg CR tablet by mouth 1 (one) time each day. Active carvediloL (COREG) 12.5 Take 6.25 mg 0 mg tablet by mouth 1 (one) time each day. Active grape seed extract 50 mg Take 50 mg by 0 capsule mouth 1 (one) time each day. Active cyanocobalamin 100 mcg Take 100 mcg 0 tablet by mouth 1 (one) time each day. Active cholecalciferol, vitamin Take 5,000 0 D3, 125 mcg (5,000 unit) Units by tablet mouth 1 (one) time each day. Active multivitamin (THERAGRAN) Take 1 tablet 0 tablet tablet by mouth 1 (one) time each day. Active taybogy-iivh-ywakt-oreg-c Take 100 mg 0 alden 100 mg-150 mg- 50 by mouth 1 mg-150 mg capsule (one) time each day. Active ascorbic acid-collagen Take 125 mg 0 125-740 mg capsule by mouth 1 (one) time each day. Active cinnamon bark 500 mg Take 500 mg 0 capsule by mouth 1 (one) time each day. Active omega 3-nxw-xew-fish oil Take 2 0 1,000 mg (120 mg-180 mg) capsules by capsule mouth 1 (one) time each day. Active isosorbide mononitrate Take 1/2 a 88 tablet 0 (IMDUR) 30 mg 24 hr tab daily for 1 tablet 4 days and then 1 tablet daily. 02/02/2021 Discontinued (Discontinued b y another clinician) lisinopriL (Zestril) 5 mg Take 5 mg by 0 tablet mouth 1 (one) time each day. 02/02/2021 Discontinued (Discontinued b y another clinician) fenofibrate (TRIGLIDE) Take 160 mg 0 160 mg tablet by mouth 1 (one) time each day. Active Problems Problem Noted Date Nonrheumatic mitral valve regurgitation 02/02/2021 Nonrheumatic tricuspid valve regurgitation Nonrheumatic aortic valve insufficiency 02/02/2021 PVC (premature ventricular contraction) 02/02/2021 Pain in both lower legs 02/02/2021 Palpitations 01/25/2021 Chest pain, unspecified 01/25/2021 Shortness of breath 01/25/2021 Multiple myeloma 01/25/2021 Sleep apnea 01/25/2021 GI bleed 01/25/2021 Class 1 obesity with serious comorbidity and body mas s index (BMI) of 33.0 01/25/2021 to 33.9 in adult Cardiomyopathy, ischemic 01/25/2021 Congestive heart failure 01/25/2021 Ventricular tachycardia 01/25/2021 Atherosclerosis of [place] coronary artery with angina pectoris 01/25/2021 Essential hypertension 01/25/2021 Hyperlipidemia 01/25/2021 Encounters Care Team Description Date Type Specialty Xiang Riddle II RN Results 02/15/2021 Documentation Pain in both lower legs 02/10/2021 Ancillary Procedure 02/10/2021 Travel Atherosclerosis of [place] co ronary artery of [place] heart with angina pectoris (HCC); Nonrheumatic aortic valve stenosis; Palpitations; PVC (premature ventricular contraction); Shortness of breath 02/05/2021 Ancillary Procedure 02/05/2021 Travel Toby Bruno MD Atherosclerosis of [place] coronary arter y of [place] heart with angina pectoris (HCC) (Primary Dx); Shortness of breath; Palpitations; Nonrheumatic aortic valve stenosis; PVC (premature ventricular contraction); Pain in both lower legs; Essential hypertension; Hyperlipidemia, unspecified hyperlipidemia type; Class 1 obesity with serious comorbidity and body mass index (BMI) of 33.0 to 33.9 in adult, unspecified obesity type 02/02/2021 Consult 02/02/2021 Travel from Last 3 Months Family History Medical History Relation Name Comments Coronary artery disease Brother Heart attack Brother Relation Name Status Comments Brother Social History Date Tobacco Use Types Packs/Day [...] or suspected to have Coronavirus / COVID-19? Last Filed Vital Signs Reading Time Taken [...] 02/02/2021 2:52 PM CDT Body Mass Index Plan of Treatment Care Team Description Date Type Specialty Oriana Blandon, COLLECTION SYSTEMS CONSULTANT-LEGAL ADMINISTRATIVE SECRETARY [address] [place] [id number] 08/04/2021 Office Visit Health Maintenance Due Date Last Done Comments Medicare Wellness 1940 MMR Vaccines (1 of - 08/11/1941 Standard series) Varicella Vaccines (1 of 08/11/1941 2 - 2-dose childhood series) COVID-19 Vaccine (1) 1950 Depression Screening 1950 DTaP,Tdap,and Td Vaccines 1957 (1 - Tdap) Zoster Vaccines (1 of 2) 1988 Glaucoma Screening 65+ Yr 08/11/2003 Pneumococcal 65+ Yr (1 of 08/11/2003 1 - PPSV23) Influenza Vaccine (#1) 2021 HIB Vaccines Aged Out No longer eligible based on patient's age to complete this topic HPV Vaccines Aged Out No longer eligible based on patient's age to complete this topic Hepatitis A Vaccines Aged Out No longer eligibl e based on patient's age to complete this topic Hepatitis B Vaccines Aged Out No longer eligibl e based on patient's age to complete this topic IPV Vaccines Aged Out No longer eligible based on patient's age to complete this topic Meningococcal Vaccine Aged Out No longer eligib le based on patient's age to complete this topic Procedures Comments Procedure Name Priority Date/Time Associated Diag nosis MYRNA W/WO TOE PRESSURES Routine 02/10/2021 Pain in both lower legs BILAT VASC 3:11 PM CDT TRANSTHORACIC ECHO (TTE) Routine 02/05/2021 Ather osclerosis of [place] COMPLETE W/ DOPPLER AND 11:20 AM CDT coronary [place] COLOR heart with angina pectoris (HCC) Nonrheumatic aortic valve stenosis Palpitations PVC (premature ventricular contraction) Shortness of breath ECG 12-LEAD Routine 02/03/2021 Atherosclerosis of [place] 12:46 PM CDT coronary artery of [place] heart with angina pectoris (HCC) from Last 3 Months Results * MYRNA W/WO TOE PRESSURES BILAT VASC (02/10/2021 3:11 PM CDT) Modality Anatomical Region Laterality Ultrasound Lower Leg, Ankle, Foot Specimen Narrative DARIAN DUTTA PACS - 02/11/2021 8:17 AM CDT Date of Exam:02/10/21 MR#: [id number] Patient: Macario Nelson Referring Physician: Toby Bruno Date of : 1940 Technologist: Reta Cheng RDCS, RVT INDICATION: Pain in both lower legs PREVIOUS EXAM: Interpreting Physician: DIA Interpretation: Normal Performing Organization Address City/State/ZIP Code P kelly Number [facility] PACS * Transthoracic Echo (TTE) Complete (02/05/2021 11:20 AM CDT) Modality Anatomical Region Laterality Ultrasound Specimen Narrative DARIAN TALLEYRA PACS - 02/09/2021 4:59 PM CDT Name: Macario Nelson Date of study: 02/05/21 Date of : 1940 Medical Record: [id number] Room Number: Accession Number: [id number] Ht: 5'10" Wt: 232 BSA: 2.22 Umbrella Tipper Hand: DUNCAN Thakur BP: 105/72 HR: Ordering Physician: Toby Bruno MD Study Performed: Transthoracic Echocardiogram Indication/History: Atherosclerosis of [place] coronary artery, nonrheumatic aortic valve stenosis, palpitations, [...] (cm2) (.6 1.1cm) 2.03 RV Max Short [place] Mitral Valve: (4.4cm) 2.13 Peak Velocity (m/sec) [...] Code P kelly Number DARIAN AVALOS ECG from Last 3 Months Insurance Type Payer Benefit Subscriber ID Effective Phone Address Plan / Dates Group MEDICARE MEDICARE [id number] 2003-P 2019 PART A AND [address] [place] [address] AAR AAR [id number] 2020-P [phone] [id number] [place] [address] Advance Directives Patient Skylights Assembler Explanation Type Date Recorded Advance Directives and Living Will Power of End [place] Care Teams Start Date End Date Tree Warden Relationship Specialty 01/21/21 Salvador Rasmussen MD PCP - General Family [address] [place] [address]
--- OUTSIDE RECORDS SUMMARY | 2021-02-16 13:09 | XMS REPORT | Encounter Summary ---
Author Author [facility] Organization [facility] Address Unknown Phone Unavailable Care Team Providers Care Precipitator Supervisor Name Role Phone Salvador Rasmussen MD PCP Encounter Details Care Team Description Date Type Department 02/05/2021 Travel Social History Date Tobacco Use Types Packs/Day Years Used Never Smoker Smokeless Tobacco: Never Used Comments Alcohol Use Standard Drinks/Week Never 0 (1 standard drink = 0.6 o z pure alcohol) Sex Assigned at Date Recorded Not on file Industry Job Start Date Occupation Not on file Not on file Not on file Date Recorded COVID-19 Exposure Response 02/05/2021 10:46 AM CDT In the last month, have you been in contact with No / Unsure someone who was confirmed or suspected to have Coronavirus / COVID-19? documented as of this encounter Plan of Treatment Care Team Description Date Type Specialty Oriana Blandon, DINING ROOM HOST-CHANNELER INSOLE [address] [address] 08/04/2021 Office Visit Cardiology documented as of this encounter Visit Diagnoses Not on filedocumented in this encounter Care Teams Start Date End Date Precipitator Supervisor Relationship Specialty 01/21/21 Salvador Rasmussen MD PCP - General Family [address] [place] [address] documented as of this encounter
--- OUTSIDE RECORDS SUMMARY | 2021-02-16 13:09 | XMS REPORT | Encounter Summary ---
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) Nonrheumatic aortic valve stenosis Palpitations PVC (premature ventricular contraction) Shortness of breath Procedures Transthoracic Echo (TTE) Complete TRANSTHORACIC ECHO (TTE) COMPLETE TRANSTHORACIC ECHO (TTE) COMPLETE W/ DOPPLER TRANSTHORACIC ECHO (TTE) COMPLETE W/ CONTRAST TRANSTHORACIC ECHO (TTE) COMPLETE NO DOPPLER NO COLOR Toby Bruno MD [address] [place] [address] [facility] [address] [place] [phone] Cardiology Referral ID Status Reason Start Date Expiration Visits Vi sits Date Requested Authorized [id number] Closed 02/02/2021 01/28/2022 1 1 Encounter Details Care Team Description Date Type Department Atherosclerosis of [place] co ronary artery of [place] heart with angina pectoris (HCC); Nonrheumatic aortic valve stenosis; Palpitations; PVC (premature ventricular contraction); Shortness of breath 02/05/2021 Ancillary [facility] itute Procedure [place] [facility] [address] [place] [phone] Social History Date Tobacco Use Types [...] Team Description Date Type Specialty Oriana Blandon, ORIENTATION & MOBILITY SPECIALIST-FLEXOGRAPHIC PRINTING PRESS OPERATOR [address] [place] [id number] 08/04/2021 Office Visit Cardiology documented as of this encounter Procedures Comments Procedure Name Priority Date/Time Associated Diag nosis TRANSTHORACIC ECHO (TTE) Routine 02/05/2021 Ather osclerosis of [place] COMPLETE W/ DOPPLER AND 11:20 AM CDT coronary [place] COLOR heart with angina pectoris (HCC) Nonrheumatic aortic valve stenosis Palpitations PVC (premature ventricular contraction) Shortness of breath documented in this encounter Results * Transthoracic Echo (TTE) Complete (02/05/2021 11:20 AM CDT) Modality Anatomical Region Laterality Ultrasound Specimen Narrative TUL SECTRA PACS - 02/09/2021 4:59 PM CDT Name: Macario Nelson Date of study: 02/05/21 Date of : 1940 Medical Record: [id number] Room Number: Accession Number: [id number] Ht: 5'10" Wt: 232 BSA: 2.22 Scheduling Coordinator: DUNCAN Thakur BP: 105/72 HR: Ordering Physician: Toby Bruno MD Study Performed: Transthoracic Echocardiogram Indication/History: Atherosclerosis of [place] coronary artery, nonrheumatic aortic valve stenosis, palpitations, [...] (cm2) (.6 1.1cm) 2.03 RV Max Short [place] Mitral Valve: (4.4cm) 2.13 Peak Velocity (m/sec) [...] Organization Address City/State/ZIP Code P kelly Number 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 [place] [address] documented as of this encounter
--- OUTSIDE RECORDS SUMMARY | 2021-02-16 13:09 | XMS REPORT | Encounter Summary ---
Author Author [facility] Organization [facility] Address Unknown Phone Unavailable Care Team Providers Care Security System Administrator Name Role Phone Salvador Rasmussen MD PCP Encounter Details Care Team Description Date Type Department 02/10/2021 Travel Social History Date Tobacco Use Types [...] Team Description Date Type Specialty Oriana Blandon, VETERINARY ASSISTANT TECHNICIAN-LEAD RAMP AGENT [address], [place] [address] 08/04/2021 Office Visit Cardiology documented as of this encounter Visit Diagnoses Not on filedocumented in this encounter Care Teams Start Date End Date Security System Administrator Relationship Specialty 01/21/21 Salvador Rasmussen MD PCP - General Family [address] [place] [address] documented as of this encounter
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
[2021-02-16] MEDS ORDERED: FENO160T12 PO (13:37)
[2021-02-16] MEDS ORDERED: OXYC10TA7 PO (13:37)
[2021-02-16] MEDS ORDERED: NALO4SPR NS (13:37)
[2021-02-16] MEDS ORDERED: ASPI-999 PO (13:37)
[2021-02-16] MEDS ORDERED: VITA400C60 PO (13:37)
[2021-02-16] MEDS ORDERED: FURO40TA4 PO (13:37)
[2021-02-16] MEDS ORDERED: OMEG-9 PO (13:37)
[2021-02-16] MEDS ORDERED: MTP25TSR PO (13:37)
[2021-02-16] MEDS ORDERED: OXYC15TA56 PO (13:37)
[2021-02-16] MEDS ORDERED: CLOP75TA28 PO (13:37)
[2021-02-16] MEDS ORDERED: CHOL500050 PO (13:37)
[2021-02-16] MEDS ORDERED: CYAN500T8 PO (13:37)
[2021-02-16] MEDS ORDERED: POLY17PO6 PO (13:37)
[2021-02-16] MEDS ORDERED: OMEP20CA18 PO (13:37)
[2021-02-16] MEDS ORDERED: NIAC-44 PO (13:37)
[2021-02-16] MEDS ORDERED: DOXY100C5 PO (13:37)
[2021-02-16] MEDS: DOCUSATE SODIUM 100 MG (COLACE) CAP PO SCH ×2 (14:01→20:16)
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
--- NOTE | 2021-02-16 15:08 | Occupational Ther Daily Note ---
OT Current Status-Daily Note Subjective Pt alert, sitting in gym. Took over care from OTR/L. Pt c/o pain, nrsg brought pain meds. Mental Status/Objective Patient Orientation: Person, Place, Time, Situation ADL-Treatment OT/PT co-treat ([id number]), skills of 2 clinicians required to decrease fall risk, decrease pain with mobility and increase mobility. PT focusing on transfers and ambulation while OT focusing on functional mobility and ADLs. Pt increased pain throughout session. Increased time to complete tasks due to increased pain and decreased stamina. Will complete bathing tomorrow, pt agrees to sponge bath. Set up for eating then pt uses regular utensils to eat, to increase efficiency of utilizing utensils built up handle placed. Pt educated on lower body dressing AE to adhere to back precautions. Pt verbalized understanding though will need continued education to become proficient. Pt ambulated back to room using FWW. Max A to don/doff back brace. Max A to don/doff shirt. Max A to don/doff socks. Max A to don/doff lower body elizabeth thing. Set up for oral care. Max A x2 for bed mobility. After session, pt lying in bed with call light/phone in reach. All needs met in room. Therapy Code Descriptions/Definitions Functional [place] Measure: 0=Not Assessed/NA 4=Minimal Assistance 1=Total Assistance 5=Supervision or Setup 2=Maximal Assistance 6=Modified [place] 3=Moderate Assistance 7=Complete IndependenceSCALE: Activities may be completed with or without assistive devices. 5-Nthvsdeius-uolwopi completes the activity by him/herself with no assistance from a helper. 5-Set-up or Clean-up Assistance-helper sets up or cleans up; patient completes activity. [place] assists only prior to or following the activity. 4-Supervision or Touching Assistance-helper provides verbal cues and/or touching/steadying and/or contact guard assistance as patient completes activity. Assistance may be provided throughout the activity or intermittently. 3-Partial/Moderate Assistance-helper does LESS THAN HALF the effort. [place] lifts, holds or supports trunk or limbs, but provides less than half the effort. 2-Substantial/Maximal Assistance-helper does MORE THAN HALF the effort. [place] lifts or holds trunk or limbs and provides more than half the effort. 5-Wvjajplfz-ulzuqs does ALL the effort. Patient does none of the effort to complete the activity. Or, the assistance of 2 or more helpers is required for the patient to complete the activity. If activity was not attempted, code reason: 7-Patient Refused. 9-Not Applicable-not attempted and the patient did not perform the activity before the current illness, exacerbation or injury. 10-Not Attempted due to Environmental Limitations-(lack of equipment, weather restraints, etc.). 88-Not Attempted due to Medical Conditions or Safety Concerns. Eating (QC): 5 Oral Hygiene (QC): 5 Shower/Bathe Self (QC): 2 (Pt requires max A to complete bathing. Will needs AE to adhere to back precautions when bathing lower body.) Upper Body Dressing (QC): 2 Lower Body Dressing (QC): 2 On/Off Footwear: 2 Toileting Hygiene (QC): 2 (Per clinical judgment, pt requires mod A to manipulate clothing and max A to complete hygiene.) OT Short Term Goals Short Term Goals Eatin Oral hygiene: 4 Toileting hygiene: 4 Shower/bathe self: 3 Upper body dressin Lower body dressin Putting on/taking off footwear: 3 OT Longterm Goals Longterm Goals Eating (QC): 6 Oral Hygiene (QC): 6 Toileting Hygiene (QC): 6 Shower/Bathe Self (QC): 4 Upper Body Dressing (QC): 4 Lower Body Dressing (QC): 5 On/Off Footwear (QC): 5 1=Demonstrate adherence to instructed precautions during ADL tasks. 2=Patient will verbalize/demonstrate understanding of assistive devices/modifications for ADL. 3=Patient will improve strength/tolerance for activity to enable patient to perform ADL's. OT Education/Plan Problem List/Assessment Assessment: Decreased Activ Tolerance, Decreased UE Strength, Impaired Bed Mobility, Impaired Coordination, Impaired Funct Balance, Impaired I ADL's, Impaired Self-Care Skills, Restricted Funct UE ROM Discharge Recommendations Plan/Recommendations: Continue POC Treatment Plan/Plan of Care Patient would benefit from OT for education, treatment and training to promote independence in ADL's, mobility, safety and/or upper extremity function for ADL's. Plan of Care: ADL Retraining, Functional Mobility, Group Exercise/Act as Ind, Orthotic Fitting/Training, UE Funct Exercise/Act Treatment Duration: Mar 09, 2021 Frequency: At least 5 of 7 days/Wk (IRF) Estimated Hrs Per Day: 1.5 hours per day Agreement: Yes Rehab Potential: Fair Time/GCodes Start Time: 13:40 Stop Time: 15:00 Total Time Billed (hr/min): 80 Billed Treatment Time 1 visit-ADL 3 (45 min) FA 2 (35 min) co-treat with PT [id number], individual [id number] HOMER FERNANDEZ Feb 16, 2021 15:08
[2021-02-16] MEDS ORDERED: NON-FORMULARY MEDICATION 1 EA EA (Doxycycline Hyclate 100 MG) PO SCH (19:00)
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
[2021-02-16 20:07] VITALS: BP 138/78
[2021-02-16] MEDS: DOXYCYCLINE 100 MG (VIBRAMYCIN) TABLET PO SCH (20:16)
[2021-02-17] MEDS: CYANOCOBALAMIN 1,000 MCG (VITAMIN B-12) TABLET PO SCH (05:16)
[2021-02-17 06:08] LABS: BASOPHILS % (AUTO) 1 % (0-10); EOSINOPHILS # (AUTO) 0.2 10^3/uL (0.0-0.3); EOSINOPHILS % (AUTO) 4 % (0-10); HEMATOCRIT 28 % (40-54); LYMPHOCYTES # (AUTO) 0.8 10^3/uL (1.0-4.0); LYMPHOCYTES % (AUTO) 19 % (12-44); MEAN CORPUSCULAR HEMOGLOBIN 32 pg (25-34); MEAN CORPUSCULAR HGB CONC 32 g/dL (32-36); MEAN CORPUSCULAR VOLUME 101 fL (80-99); MEAN PLATELET VOLUME 10.6 fL (9.0-12.2); MONOCYTES # (AUTO) 0.4 10^3/uL (0.0-1.0); MONOCYTES % (AUTO) 8 % (0-12); NEUTROPHILS # (AUTO) 2.9 10^3/uL (1.8-7.8); NEUTROPHILS % (AUTO) 68 % (42-75); PLATELET COUNT 225 10^3/uL (130-400); WHITE BLOOD COUNT 4.3 10^3/uL (4.3-11.0)
[2021-02-17 06:32] LABS: ALBUMIN 3.1 GM/DL (3.2-4.5)
[2021-02-17 06:33] LABS: POTASSIUM 4.4 MMOL/L (3.6-5.0)
[2021-02-17 06:34] LABS: CALCIUM 9.5 MG/DL (8.5-10.1)
[2021-02-17 06:35] LABS: TOTAL PROTEIN 7.2 GM/DL (6.4-8.2)
[2021-02-17 06:37] LABS: BILIRUBIN,TOTAL 0.5 MG/DL (0.1-1.0)
[2021-02-17 06:39] LABS: CREATININE SERUM 1.97 MG/DL (0.60-1.30)
[2021-02-17 07:43] VITALS: BP 159/72
[2021-02-17] MEDS ORDERED: NON-FORMULARY MEDICATION 1 EA EA (Fenofibrate 160 MG) PO SCH (09:00)
[2021-02-17] MEDS ORDERED: OMEPRAZOLE 20 MG (PriLOSEC) CAP NON-FORMULARY PO SCH (09:00)
[2021-02-17] MEDS ORDERED: NON-FORMULARY MEDICATION 1 EA EA (Cyanocobalamin (Vitamin B-12) (Vitamin B-12) 500 MCG) PO SCH (09:00)
[2021-02-17] MEDS ORDERED: NIACIN 500 MG PO SCH (09:00)
[2021-02-17] MEDS ORDERED: NON-FORMULARY MEDICATION 1 EA EA (Cholecalciferol (Vitamin D3) (Vitamin D3) 125 MCG) PO SCH (09:00)
[2021-02-17] MEDS ORDERED: NON-FORMULARY MEDICATION 1 EA EA (Vitamin E Acetate (Vitamin E) 400 UNIT) PO SCH (09:00)
[2021-02-17 09:15] VITALS: BP 161/71
[2021-02-17] MEDS: polyethylene glycoL POWDER 17 GM (MIRALAX) PACK PO SCH (09:16)
[2021-02-17] MEDS: DOCUSATE SODIUM 100 MG (COLACE) CAP PO SCH ×2 (09:16→19:30)
[2021-02-17] MEDS: VITAMIN E 180 MG (400 UNITS) CAP PO SCH (09:17)
[2021-02-17] MEDS: ASPIRIN 81 MG CHEW (CHILDREN'S ASA) PO SCH (09:17)
[2021-02-17] MEDS: PANTOPRAZOLE 20 MG TABLET (PROTONIX) PO SCH (09:17)
[2021-02-17] MEDS: FENOFIBRATE 134 MG (LOFIBRA) CAPSULE PO SCH (09:17)
[2021-02-17] MEDS: VITAMIN D3 125 MCG (5,000 UNITS) CAPSULE PO SCH (09:17)
[2021-02-17] MEDS: CLOPIDOGREL 75 MG (PLAVIX) TABLET PO SCH (09:17)
[2021-02-17] MEDS: DOXYCYCLINE 100 MG (VIBRAMYCIN) TABLET PO SCH ×2 (09:17→21:46)
[2021-02-17] MEDS: SENNA W/DOCUSATE (SENOKOT S) TABLET PO SCH ×2 (09:17→19:30)
--- NOTE | 2021-02-17 10:28 | Physical Therapy Daily Note ---
PT Daily Note-Current Subjective Patient in recliner pre tx, agrees to PT, has 10/10 pain, nurse gives him pain meds. Will be co-treating with OT due to poor patient mobility, strength, endurance, severe pain with activity, coordinate UE and LE during activity, safety and reduce risk of falls. Appearance Patient in recliner post tx with nurse call, phone, tray, all needs met. Mental Status Patient Orientation: Person, Place, Situation TLSO Transfers SCALE: Activities may be completed with or without assistive devices. 0-Bnrulunmrd-dwepvio completes the activity by him/herself with no assistance from a helper. 5-Set-up or Clean-up Assistance-helper sets up or cleans up; patient completes activity. [place] assists only prior to or following the activity. 4-Supervision or Touching Assistance-helper provides verbal cues and/or touching/steadying and/or contact guard assistance as patient completes activity. Assistance may be provided throughout the activity or intermittently. 3-Partial/Moderate Assistance-helper does LESS THAN HALF the effort. [place] lifts, holds or supports trunk or limbs, but provides less than half the effort. 2-Substantial/Maximal Assistance-helper does MORE THAN HALF the effort. [place] lifts or holds trunk or limbs and provides more than half the effort. 8-Ilcqksjob-kcjbkj does ALL the effort. Patient does none of the effort to complete the activity. Or, the assistance of 2 or more helpers is required for the patient to complete the activity. If activity was not attempted, code reason: 7-Patient Refused. 9-Not Applicable-not attempted and the patient did not perform the activity before the current illness, exacerbation or injury. 10-Not Attempted due to Environmental Limitations-(lack of equipment, weather restraints, etc.). 88-Not Attempted due to Medical Conditions or Safety Concerns. Sit to Stand (QC): 4 Chair/Dkk-sv-Uqlbz Xfer(QC): 4 occasional cues for hand placement. Patient performs bathing and dressing from the recliner level, PT assist with standing positioning. He also has to stand and use the urinal Gait Training Distance: 120'x2 Walk 10 feet (QC): 4 Walk 50 ft with 2 Turns(QC): 4 Gait Assistive Device: FWW very slow, antalgic ambulation Exercises Standing: Heel/toe raises, Mini squats Standing Reps: 15 Standing in parallel bars performing reaching activity. Treatments PT performed transfers, ambulation, LE strengthening, standing and positioning during bathing and dressing and reaching activity, OT performed bathing, dressing, reaching activity, UE positioning and safety during activity. Assessment Current Status: Poor Progress pain limits activity PT Short Term Goals Short Term Goals Time Frame: Feb 23, 2021 Roll Left & Right: 3 Sit to lyin Lying to sitting on side of be: 3 Sit to stand: 4 Chair/wod-bx-nbfuh transfer: 4 Walk 10 feet: 4 Walk 50 feet with two turns: 4 Walk 150 feet: 4 PT Sales Development Specialist Goals Sales Development Specialist Goals PT Sales Development Specialist Goals Time Frame: Mar 09, 2021 Roll Left & Right (QC): 6 Sit to Lying (QC): 6 Lying-Sitting on Side/Bed(QC): 6 Sit to Stand (QC): 6 Chair/Rql-nc-Tlywd Xfer(QC): 6 Toilet Transfer (QC): 6 Car Transfer (QC): 6 Does the Patient Walk: Yes Walk 10 feet (QC): 6 Walk 50ft with 2 Turns (QC): 6 Walk 150 ft (QC): 6 Walking 10ft on Uneven Surface: 6 1 Step (curb) (QC): 4 4 Steps (QC): 4 12 Steps (QC): 88 Picking up an Object (QC): 88 Wheel 50 feet with 2 turns (QC: 9 Wheel 150 feet: 9 PT Plan Problem List Problem List: Activity Tolerance, Functional Strength, Safety, Balance, Gait, Transfer, Bed Mobility, ROM Treatment/Plan Treatment Plan: Continue Plan of Care Treatment Plan: Bed Mobility, Education, Functional Activity J Luis, Functional Strength, Group Therapy, Gait, Safety, Therapeutic Exercise, Transfers Treatment Duration: Mar 09, 2021 Frequency: At least 5 of 7 days/Wk (IRF) Estimated Hrs Per Day: 1.5 hours per day Patient and/or Family Agrees t: Yes Safety Risks/Education Patient Education: Gait Training, Transfer Techniques, Correct Positioning, Reviewed Don/Doff Brace, Safety Issues Teaching Recipient: Patient Teaching Methods: Demonstration, Discussion Response to Teaching: Reinforcement Needed Time/GCodes Time In: 0900 Time Out: 1030 Total Billed Treatment Time: 90 Total Billed Treatment 1 visit EX 30' FA 60' co-treated with OT for 90' JENNIFER DURON PT Feb 17, 2021 10:27
--- NOTE | 2021-02-17 10:40 | Occupational Ther Daily Note ---
OT Current Status-Daily Note Subjective Pt reports pain as 10/10 at start of session. RN in room to give pain meds. Appearance Pt returned to sitting in chair, all needs within reach at end of session. Mental Status/Objective Extra time needed for processing and expressing thoughts. ADL-Treatment Will be co-treating with PT due to poor patient mobility, strength, endurance, severe pain with activity, coordinate UE and LE during activity, safety and reduce risk of falls. Pt sitting in chair at therapy arrival. Reports 10/10 pain. Pain meds given by RN. Partial sponge bath performed at chair level. Extra time needed for completion secondary to pain with all movement. mod verbal cues for initiation and sequencing through task. Pt able to horizontally adduct to reach opposite axilla but required min a for thoroughness. LB not addressed this date. OT did provide pt with LHS, but will complete instruction on use during next session. Extra time to identify correct orientation of shirt. He was able to initiate threading UE's through sleeves, yet required assist to bring over elbows. Max a to bring overhead and pull down around torso. Education provided on wearing larger/loose fitting clothing for energy conservation. Max a to don TLSO brace. Min cues/assist when threading LE's into pants with use of bore mill operator for plastic. CGA for safety as he stood for clothing management. Reminders/demonstration on use of sock aid to don ke socks. Post instruction, pt able to complete with Min A. Therapy Code Descriptions/Definitions Functional [place] Measure: 0=Not Assessed/NA 4=Minimal Assistance 1=Total Assistance 5=Supervision or Setup 2=Maximal Assistance 6=Modified [place] 3=Moderate Assistance 7=Complete IndependenceSCALE: Activities may be completed with or without assistive devices. 2-Qxrasfnfqn-bdunsqc completes the activity by him/herself with no assistance from a helper. 5-Set-up or Clean-up Assistance-helper sets up or cleans up; patient completes activity. [place] assists only prior to or following the activity. 4-Supervision or Touching Assistance-helper provides verbal cues and/or touching/steadying and/or contact guard assistance as patient completes activity. Assistance may be provided throughout the activity or intermittently. 3-Partial/Moderate Assistance-helper does LESS THAN HALF the effort. [place] lifts, holds or supports trunk or limbs, but provides less than half the effort. 2-Substantial/Maximal Assistance-helper does MORE THAN HALF the effort. [place] lifts or holds trunk or limbs and provides more than half the effort. 7-Imaandzvq-nevyue does ALL the effort. Patient does none of the effort to complete the activity. Or, the assistance of 2 or more helpers is required for the patient to complete the activity. If activity was not attempted, code reason: 7-Patient Refused. 9-Not Applicable-not attempted and the patient did not perform the activity before the current illness, exacerbation or injury. 10-Not Attempted due to Environmental Limitations-(lack of equipment, weather restraints, etc.). 88-Not Attempted due to Medical Conditions or Safety Concerns. Bathing Location: L Arm, R Arm, Chest, Abdomen Upper Body Dressing (QC): 1 Lower Body Dressing (QC): 3 On/Off Footwear: 3 Toileting Hygiene (QC): 3 Toilet Transfer (QC): 3 Other Treatment Pt ambulated to/from therapy gym with CGA/min a and use of walker. Slow but steady gait. Reduced foot clearance with cues needed. He participated in standing activity with focus on improving reaching, balance, and overall endurance while also adhering to spinal precautions. Cues on turning body vs twisting at torso. Extra time to reach/grasp secondary to pain and edema. No lob during task. Pt completed standing LB exercises with Physical therapy and OT instructed pt on gentle UE AROM exercises in effort to reduce edema in hands. Education OT Patient Education: Correct positioning, Energy conservation, Exercise program, Modified ADL techniques, Progress toward Goal/Update tx plan, Purpose of tx/functional activities, Reviewed precautions, Rehab process, Safety issues, Transfer techniques, Use of adapted equipment Teaching Recipient: Patient Teaching Methods: Demonstration, Discussion Response to Teaching: Verbalize Understanding, Return Demonstration, Re inforcement Needed OT Short Term Goals Short Term Goals Eatin Oral hygiene: 4 Toileting hygiene: 4 Shower/bathe self: 3 Upper body dressin Lower body dressin Putting on/taking off footwear: 3 OT Alf Goals Alf Goals Eating (QC): 6 Oral Hygiene (QC): 6 Toileting Hygiene (QC): 6 Shower/Bathe Self (QC): 4 Upper Body Dressing (QC): 4 Lower Body Dressing (QC): 5 On/Off Footwear (QC): 5 1=Demonstrate adherence to instructed precautions during ADL tasks. 2=Patient will verbalize/demonstrate understanding of assistive d evices/modifications for ADL. 3=Patient will improve strength/tolerance for activity to enable patient to perform ADL's. OT Education/Plan Problem List/Assessment Assessment: Decreased Activ Tolerance, Decreased Safety Aware, Decreased UE Strength, Impaired Bed Mobility, Impaired Coordination, Impaired Funct Balance, Impaired I ADL's, Impaired Self-Care Skills, Restricted Funct UE ROM Discharge Recommendations Plan/Recommendations: Continue POC Equpiment Recommendations-D/C: Psychiatric Specialist, Sock Aide Treatment Plan/Plan of Care Treatment,Training & Education: Yes Patient would benefit from OT for education, treatment and training to promote independence in ADL's, mobility, safety and/or upper extremity function for ADL's. Plan of Care: ADL Retraining, Functional Mobility, Group Exercise/Act as Ind, Orthotic Fitting/Training, UE Funct Exercise/Act Treatment Duration: Mar 09, 2021 Frequency: At least 5 of 7 days/Wk (IRF) Estimated Hrs Per Day: 1.5 hours per day Agreement: Yes Rehab Potential: Fair Time/GCodes Start Time: 09:00 Stop Time: 10:30 Total Time Billed (hr/min): 90 Billed Treatment Time 1 visit, ADL x3, FA x3 Co-treat with Lo Kern OT Feb 17, 2021 10:40
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
[2021-02-17] MEDS ORDERED: NON-FORMULARY MEDICATION 1 EA EA (Omega-3/Dha/Epa/Fish Oil (Fish Oil 1,400 mg Softgel) 1 E PO SCH (12:00)
[2021-02-17] MEDS: OMEGA 3 (FISH OIL) 1000 MG CAP PO SCH (12:10)
[2021-02-17] MEDS: oxyCODONE ER 10 MG (OxyCONTIN CR) TAB PO SCH ×2 (12:13→21:46)
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
[2021-02-17] MEDS: ENOXAPARIN 40 MG/0.4 ML (LOVENOX) SYR SC SCH (14:47)
--- NOTE | 2021-02-17 14:52 | Diagnostic Imaging Report ---
INDICATION: Chest pain. COMPARISON: None. FINDINGS: Frontal and lateral radiographic views of the chest were obtained and show normal cardiac silhouette and pulmonary vasculature. Small bibasilar effusions are noted on the lateral view posteriorly. Otherwise, the lungs are clear. There is no pneumothorax. The osseous structures show no gross acute abnormalities. IMPRESSION: Small bibasilar effusions. Dictated by: Dictated on workstation # [id number]
[2021-02-17 15:13] LABS: CHOLESTEROL 145 MG/DL (< 200); HDL CHOLESTEROL 31 MG/DL (40-60); TRIGLYCERIDES 183 MG/DL (<150); VLDL CHOLESTEROL 37 MG/DL (5-40)
[2021-02-17] MEDS: BISACODYL 10 MG SUPP (DULCOLAX) PR PRN (17:12)
[2021-02-17] MEDS: NIACIN 500 MG TABLET PO SCH (17:12)
[2021-02-17 19:58] VITALS: BP 160/73
[2021-02-18] MEDS: CYANOCOBALAMIN 1,000 MCG (VITAMIN B-12) TABLET PO SCH (05:52)
[2021-02-18 06:08] LABS: POTASSIUM 4.4 MMOL/L (3.6-5.0)
[2021-02-18 06:09] LABS: CALCIUM 9.5 MG/DL (8.5-10.1)
[2021-02-18 06:13] LABS: CREATININE SERUM 1.66 MG/DL (0.60-1.30)
[2021-02-18 07:58] VITALS: BP 153/69
[2021-02-18] MEDS: CLOPIDOGREL 75 MG (PLAVIX) TABLET PO SCH (08:40)
[2021-02-18] MEDS: ASPIRIN 81 MG CHEW (CHILDREN'S ASA) PO SCH (08:40)
[2021-02-18] MEDS: PANTOPRAZOLE 20 MG TABLET (PROTONIX) PO SCH (08:40)
[2021-02-18] MEDS: DOCUSATE SODIUM 100 MG (COLACE) CAP PO SCH ×2 (08:40→21:22)
[2021-02-18] MEDS: FENOFIBRATE 134 MG (LOFIBRA) CAPSULE PO SCH (08:40)
[2021-02-18] MEDS: DOXYCYCLINE 100 MG (VIBRAMYCIN) TABLET PO SCH ×2 (08:40→21:22)
[2021-02-18] MEDS: VITAMIN E 180 MG (400 UNITS) CAP PO SCH (08:40)
[2021-02-18] MEDS: oxyCODONE ER 10 MG (OxyCONTIN CR) TAB PO SCH ×2 (08:40→21:22)
[2021-02-18] MEDS: SENNA W/DOCUSATE (SENOKOT S) TABLET PO SCH ×2 (08:40→21:22)
[2021-02-18] MEDS: VITAMIN D3 125 MCG (5,000 UNITS) CAPSULE PO SCH (08:40)
[2021-02-18] MEDS: polyethylene glycoL POWDER 17 GM (MIRALAX) PACK PO SCH (08:46)
--- NOTE | 2021-02-18 10:27 | Occupational Ther Daily Note ---
OT Current Status-Daily Note Subjective Pt reports pain in back as 6/10, meds already given per patient. Appearance Pt left sitting in chair, all needs within reach at end of treatment. Mental Status/Objective Patient Orientation: Person, Place, Non-Verbal/Aphasic, Situation Attachments: IV Extra time for process commands and finishing/expressing thoughts. ADL-Treatment Per doctor, pt is able to shower with brace off. Recommend 100% of task completed in sitting if brace is doffed.Pt unable to tolerate full shower at this time, thus Partial sponge bath performed at chair level. Extra time needed for completion and initiation secondary to pain with all movement. Improved ability to reach across midline this date to wash bilateral axilla. C/O pain in BUE's, L>R. OT instructed pt on use of long handle sponge, yet pt declined washing LB today due to pain and not wanting to change his pants. Pt verbalizes needing powder for groin area, RN informed on Nystatin powder. Improved ability to don shirt as it was a larger size, yet still requires MAX A secondary to needing assist with 4/4 steps. Mod-Max a to don TLSO brace. Pt ambulated to b athroom with CGA and use of walker, slow but steady gait. He stood to wash face, comb hair and brush teeth. Due to pain and poor activity tolerance, he requested to sit to shave. Therapy Code Descriptions/Definitions Functional [place] Measure: 0=Not Assessed/NA 4=Minimal Assistance 1=Total Assistance 5=Supervision or Setup 2=Maximal Assistance 6=Modified [place] 3=Moderate Assistance 7=Complete IndependenceSCALE: Activities may be completed with or without assistive devices. 8-Nbzvogmtqm-reqqebm completes the activity by him/herself with no assistance from a helper. 5-Set-up or Clean-up Assistance-helper sets up or cleans up; patient completes activity. [place] assists only prior to or following the activity. 4-Supervision or Touching Assistance-helper provides verbal cues and/or touching/steadying and/or contact guard assistance as patient completes activity. Assistance may be provided throughout the activity or intermittently. 3-Partial/Moderate Assistance-helper does LESS THAN HALF the effort. [place] lifts, holds or supports trunk or limbs, but provides less than half the effort. 2-Substantial/Maximal Assistance-helper does MORE THAN HALF the effort. [place] lifts or holds trunk or limbs and provides more than half the effort. 9-Emqtaoytc-azobvb does ALL the effort. Patient does none of the effort to complete the activity. Or, the assistance of 2 or more helpers is required for the patient to complete the activity. If activity was not attempted, code reason: 7-Patient Refused. 9-Not Applicable-not attempted and the patient did not perform the activity before the current illness, exacerbation or injury. 10-Not Attempted due to Environmental Limitations-(lack of equipment, weather restraints, etc.). 88-Not Attempted due to Medical Conditions or Safety Concerns. Oral Hygiene (QC): 4 Bathing Location: L Arm, R Arm, Chest, Abdomen Upper Body Dressing (QC): 2 On/Off Footwear: 3 (with sock aid, Min a) Other Treatment Later in am, co-treat with PT secondary to severe pain, poor tolerance, endurance, mobility and increase fall risk. PT focused on LE strengthening, body mechanics, and balance while OT focused on UE strength, ROM, and adherence to spinal precautions. Pt stood at [employer] arc. RUE completed only secondary to increased pain and poor endurance. As pain/fatigue worsens, pt often dropping rings vs completing arc. Min A needed at elbow with last 2 rings due to weakness. Several (supported) sitting rest breaks needed. Pt reports that he has been completing AROM exercises at hand/wrist and has noticed reduced edema in hand. He continues to have swelling at elbow. Education on gentle Elbow AROM exercises. Pt in agreement. Pt with Physical therapy at OT departure. Education OT Patient Education: Correct positioning, Energy conservation, Modified ADL te chniques, Progress toward Goal/Update tx plan, Purpose of tx/functional activities, Reviewed precautions, Rehab process, Safety issues, Transfer techniques, Use of adapted equipment Teaching Recipient: Patient Teaching Methods: Demonstration, Discussion Response to Teaching: Verbalize Understanding, Reinforcement Needed OT Short Term Goals Short Term Goals Eatin Oral hygiene: 4 Toileting hygiene: 4 Shower/bathe self: 3 Upper body dressin Lower body dressin Putting on/taking off footwear: 3 OT Death Claim Examiner Goals Jail Goals Eating (QC): 6 Oral Hygiene (QC): 6 Toileting Hygiene (QC): 6 Shower/Bathe Self (QC): 4 Upper Body Dressing (QC): 4 Lower Body Dressing (QC): 5 On/Off Footwear (QC): 5 1=Demonstrate adherence to instructed precautions during ADL tasks. 2=Patient will verbalize/demonstrate understanding of assistive devices/modifica tions for ADL. 3=Patient will improve strength/tolerance for activity to enable patient to perform ADL's. OT Education/Plan Problem List/Assessment Assessment: Decreased Activ Tolerance, Decreased Safety Aware, Decreased UE Strength, Impaired Funct Balance, Impaired I ADL's, Impaired Self-Care Skills, Restricted Funct UE ROM Discharge Recommendations Plan/Recommendations: Continue POC Treatment Plan/Plan of Care Treatment,Training & Education: Yes Patient would benefit from OT for education, treatment and training to promote independence in ADL's, mobility, safety and/or upper extremity function for ADL's. Plan of Care: ADL Retraining, Functional Mobility, Group Exercise/Act as Ind, Orthotic Fitting/Training, UE Funct Exercise/Act Treatment Duration: Mar 09, 2021 Frequency: At least 5 of 7 days/Wk (IRF) Estimated Hrs Per Day: 1.5 hours per day Agreement: Yes Rehab Potential: Fair Time/GCodes Start Time: 09:00 (1105) Stop Time: 10:00 (1135) Total Time Billed (hr/min): 90 Billed Treatment Time 2 visits, OT from 5067-6990, ADLs x4, Co-treat: [id number]: FA Lo Jackson OT Feb 18, 2021 10:27
[2021-02-18] MEDS: OMEGA 3 (FISH OIL) 1000 MG CAP PO SCH (11:10)
--- NOTE | 2021-02-18 11:53 | Physical Therapy Daily Note ---
PT Daily Note-Current Subjective Patient in recliner pre tx, agrees to PT, has 8/10 back pain. Will be co- treating with OT for part of tx due to poor patient mobility, strength, endurance, severe pain with activity, coordinate UE and LE during activity, safety and reduce risk of falls. Appearance Patient in recliner post tx with nurse call, phone, tray, all needs met, family in room. Mental Status Patient Orientation: Person, Place, Situation TLSO Transfers SCALE: Activities may be completed with or without assistive devices. 0-Jvliogmpli-xdzblra completes the activity by him/herself with no assistance from a helper. 5-Set-up or Clean-up Assistance-helper sets up or cleans up; patient completes activity. [place] assists only prior to or following the activity. 4-Supervision or Touching Assistance-helper provides verbal cues and/or touching/steadying and/or contact guard assistance as patient completes activity. Assistance may be provided throughout the activity or intermittently. 3-Partial/Moderate Assistance-helper does LESS THAN HALF the effort. [place] lifts, holds or supports trunk or limbs, but provides less than half the effort. 2-Substantial/Maximal Assistance-helper does MORE THAN HALF the effort. [place] lifts or holds trunk or limbs and provides more than half the effort. 4-Akulbvvzc-xvmrkg does ALL the effort. Patient does none of the effort to complete the activity. Or, the assistance of 2 or more helpers is required for the patient to complete the activity. If activity was not attempted, code reason: 7-Patient Refused. 9-Not Applicable-not attempted and the patient did not perform the activity before the current illness, exacerbation or injury. 10-Not Attempted due to Environmental Limitations-(lack of equipment, weather restraints, etc.). 88-Not Attempted due to Medical Conditions or Safety Concerns. Sit to Stand (QC): 4 Chair/Pgj-vs-Qmwgw Xfer(QC): 4 CGA, cues for hand placement and safety. After getting back to his room patient needed to use the urinal, he was able to do that part himself but needed assist getting his pants down. Gait Training Distance: 150'x2 Walk 10 feet (QC): 4 Walk 50 ft with 2 Turns(QC): 4 Walk 150 ft (QC): 4 Gait Assistive Device: FWW CGA, slow but steady ambulation, very painful Exercises Standing: Marching, Mini squats Standing Reps: 15 standing activity with rings for shoulder ROM and core strength Treatments PT performed transfers, ambulation, strengthening, OT performed shoulder ROM activity, UE positioning and safety with activity Assessment Current Status: Poor Progress Patient's pain severely limits what he can do in therapy. PT Short Term Goals Short Term Goals Time Frame: Feb 23, 2021 Roll Left & Right: 3 Sit to lyin Lying to sitting on side of be: 3 Sit to stand: 4 Chair/auf-bp-etiwf transfer: 4 Walk 10 feet: 4 Walk 50 feet with two turns: 4 Walk 150 feet: 4 PT Wireworker Supervisor Goals Halfway Goals PT Halfway Goals Time Frame: Mar 09, 2021 Roll Left & Right (QC): 6 Sit to Lying (QC): 6 Lying-Sitting on Side/Bed(QC): 6 Sit to Stand (QC): 6 Chair/Uft-vz-Rprjn Xfer(QC): 6 Toilet Transfer (QC): 6 Car Transfer (QC): 6 Does the Patient Walk: Yes Walk 10 feet (QC): 6 Walk 50ft with 2 Turns (QC): 6 Walk 150 ft (QC): 6 Walking 10ft on Uneven Surface: 6 1 Step (curb) (QC): 4 4 Steps (QC): 4 12 Steps (QC): 88 Picking up an Object (QC): 88 Wheel 50 feet with 2 turns (QC: 9 Wheel 150 feet: 9 PT Plan Problem List Problem List: Activity Tolerance, Functional Strength, Safety, Balance, Gait, Transfer, Bed Mobility, ROM Treatment/Plan Treatment Plan: Continue Plan of Care Treatment Plan: Bed Mobility, Education, Functional Activity J Luis, Functional Strength, Group Therapy, Gait, Safety, Therapeutic Exercise, Transfers Treatment Duration: Mar 09, 2021 Frequency: At least 5 of 7 days/Wk (IRF) Estimated Hrs Per Day: 1.5 hours per day Patient and/or Family Agrees t: Yes Safety Risks/Education Patient Education: Gait Training, Transfer Techniques, Correct Positioning, Reviewed Don/Doff Brace, Safety Issues Teaching Recipient: Patient Teaching Methods: Demonstration, Discussion Response to Teaching: Reinforcement Needed Time/GCodes Time In: 1100 Time Out: 1200 Total Billed Treatment Time: 60 Total Billed Treatment 1 visit EX 30' FA 30' co-treated for 30' JENNIFER DURON PT Feb 18, 2021 11:53
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
--- NOTE | 2021-02-18 13:55 | Cardiology Progress Note ---
Progress Note-Cardiology Events since last exam Date Seen by Provider: Feb 18, 2021 Time Seen by Provider: 13:54 Events since last exam I am following him for his history of coronary artery disease and ventricular ectopy. He states that his breathing is improving but when he is working with physical therapy, he has a fair amount of pain in his chest and back that limits his ability to work with physical therapy. This makes him feel short of breath. He denies palpitations or syncope. His lower extremity edema seems to be improving. Certain portions of this document may have been dictated utilizing voice recognition technology. Inherent to this technology, typographical and grammatical errors may exist. As much as I am diligent to identify and correct these mistakes, some errors may remain in the document. Vitals Last set of Vitals Signs Vital Signs 02/18/21 02/18/21 07:58 09:59 Temp 36.2 Pulse 79 Resp 18 B/P (MAP) 153/69 (97) Pulse Ox 95 O2 Delivery Room Air Labs Labs Laboratory Tests 02/18/21 05:25 Exam Vital Signs Vital Signs Date Time Temp Pulse Resp B/P (MAP) Pulse Ox O2 Delivery O2 Flow Rate FiO2 02/18/21 09:59 Room Air 02/18/21 07:58 36.2 79 18 153/69 (97) 95 Physical Exam General: Alert. No acute distress. He is obese. Eye: No xanthelasma. HENT: Normocephalic. Neck: Jugular venous pressure does not appear elevated. Respiratory: Lungs are clear to auscultation. Respirations are non-labored. Breath sounds are equal. Symmetrical chest wall expansion. Cardiovascular: Normal rate. Regular rhythm. 2/6 systolic ejection murmur. No gallop. 1+ bilateral pretibial edema. Gastrointestinal: Soft. Normal bowel sounds. Skin: Warm. Dry. Neurologic: Alert and oriented to person, place, time. Cranial nerves 3-11 grossly intact. Psychiatric: Cooperative. Appropriate mood & affect. Labs Laboratory Tests Test 02/18/21 05:25 Range/Units Sodium Level 138 135-145 MMOL/L Potassium Level 4.4 3.6-5.0 MMOL/L Chloride Level 108 H 98-107 MMOL/L Carbon Dioxide Level 21 21-32 MMOL/L Anion Gap 9 5-14 MMOL/L Blood Urea Nitrogen 27 H 7-18 MG/DL Creatinine 1.66 H 0.60-1.30 MG/DL Estimat Glomerular Filtration Rate 40 BUN/Creatinine Ratio 16 Glucose Level 98 70-105 MG/DL Calcium Level 9.5 8.5-10.1 MG/DL Diagnosis/Problems Diagnosis/Problems (1) Coronary artery disease without angina pectoris Assessment & Plan: He is not having any overt angina at this point in time. I suspect the majority of his chest discomfort is related to the sternal and thoracic vertebral fracture and is not angina. He has multiple coronary stents. As such, it appears as though he has been on prolonged dual antiplatelet therapy which I would recommend we continue. He should also continue on beta- aurea. His LDL level is actually quite good on just fenofibrate. (2) Cardiomyopathy Assessment & Plan: He has mild left ventricular systolic dysfunction as outlined above. He does not know of any previous history of heart failure. His chest x-ray shows small bilateral pleural effusions which could be due to the trauma versus a mild degree of heart failure. He is on oral furosemide. I recommend he continue on metoprolol succinate. No OSMAR or ARB due to poor renal function. I recommend we continue to follow a daily metabolic panel until his creatinine reaches a eros. (3) Acute on chronic systolic heart failure Assessment & Plan: As above, he may have a mild degree of heart failure. I recommend we continue metoprolol succinate and oral furosemide. His symptoms seem to be gradually improving. (4) Aortic stenosis Assessment & Plan: He has moderate aortic stenosis as noted on his echocardiogram from earlier today. He does not recall any search specialist telling him of this diagnosis in the past. This should not be causing symptoms at this degree but will need to be followed longitudinally by his regular outside search specialist after discharge. (5) Ventricular tachycardia Assessment & Plan: From his description, it sounds as though he has a history of ventricular tachycardia or perhaps just frequent premature ventricular complexes. His iron setter in [place] had advised ablation but he was in the process of moving to [place]. He has now been in touch with an iron setter in [place] and is trying to arrange an outpatient consultation to follow-up on the ventricular arrhythmias. Although there is a report that he had a history of atrial fibrillation, he was not aware of any previous history of atrial fibrillation. (6) Primary hypertension Assessment & Plan: Blood pressures are intermittently elevated. He is on metoprolol succinate. If his blood pressures remain elevated, he may need some adjustment to his antihypertensive medication. (7) Mixed hyperlipidemia Assessment & Plan: He was taking fenofibrate as an outpatient. As above, his LDL level was under good control without a statin. I recommend he continue on fenofibrate. (8) Chronic kidney disease, stage 3 Assessment & Plan: He did not report any previous history of kidney disease. As above, I recommend we follow the creatinine until it reaches a eros. (9) Obesity Assessment & Plan: He will ultimately need to work on weight loss. SUNSHINE VALLEJO JR, MD Feb 18, 2021 13:55
[2021-02-18] MEDS: ENOXAPARIN 40 MG/0.4 ML (LOVENOX) SYR SC SCH (14:15)
--- NOTE | 2021-02-18 15:59 | Physical Therapy Daily Note ---
PT Daily Note-Current Subjective Pt sitting in recliner visiting with daughter upon arrival. Pt agrees to PT. Pain Comment: Reports generalized pain w/movement but doesn't rate, just grimace Mental Status Patient Orientation: Person, Place, Situation Attachments: Other-See Comments (TLSO Brace) Transfers SCALE: Activities may be completed with or without assistive devices. 8-Jrjbogiuqc-hkscrgv completes the activity by him/herself with no assistance from a helper. 5-Set-up or Clean-up Assistance-helper sets up or cleans up; patient completes activity. [place] assists only prior to or following the activity. 4-Supervision or Touching Assistance-helper provides verbal cues and/or touching/steadying and/or contact guard assistance as patient completes activity. Assistance may be provided throughout the activity or intermittently. 3-Partial/Moderate Assistance-helper does LESS THAN HALF the effort. [place] lifts, holds or supports trunk or limbs, but provides less than half the effort. 2-Substantial/Maximal Assistance-helper does MORE THAN HALF the effort. [place] lifts or holds trunk or limbs and provides more than half the effort. 6-Ahozyqsep-[place] does ALL the effort. Patient does none of the effort to comp lete the activity. Or, the assistance of 2 or more helpers is required for the patient to complete the activity. If activity was not attempted, code reason: 7-Patient Refused. 9-Not Applicable-not attempted and the patient did not perform the activity before the current illness, exacerbation or injury. 10-Not Attempted due to Environmental Limitations-(lack of equipment, weather restraints, etc.). 88-Not Attempted due to Medical Conditions or Safety Concerns. Exercises Supine Ex: Ankle pumps, Quad Set, Glut sets, Heel Slides, Short Arc Quads, Hip abd/add Supine Reps: 15 Treatments Dinner & breakfast ordered at beginning of tx. Pt completes Supine EX with a few short rest breaks. Pt resting and repositioning at end of tx. Core Mounter arrives to discuss Advanced Directives & Living [place]. All needs met, call light in hand. Assessment Current Status: Good Progress Pt grimaces in discomfort with Ex but continues to push through for Therapy benefit. PT Short Term Goals Short Term Goals Time Frame: Feb 23, 2021 Roll Left & Right: 3 Sit to lyin Lying to sitting on side of be: 3 Sit to stand: 4 Chair/der-tl-vrizg transfer: 4 Walk 10 feet: 4 Walk 50 feet with two turns: 4 Walk 150 feet: 4 PT Deliverer [employer]chand[employer] Goals [facility] Goals PT [facility] Goals Time Frame: Mar 09, 2021 Roll Left & Right (QC): 6 Sit to Lying (QC): 6 Lying-Sitting on Side/Bed(QC): 6 Sit to Stand (QC): 6 Chair/Vjt-cx-Xzula Xfer(QC): 6 Toilet Transfer (QC): 6 Car Transfer (QC): 6 Does the Patient Walk: Yes Walk 10 feet (QC): 6 Walk 50ft with 2 Turns (QC): 6 Walk 150 ft (QC): 6 Walking 10ft on Uneven Surface: 6 1 Step (curb) (QC): 4 4 Steps (QC): 4 12 Steps (QC): 88 Picking up an Object (QC): 88 Wheel 50 feet with 2 turns (QC: 9 Wheel 150 feet: 9 PT Plan Problem List Problem List: Activity Tolerance, Functional Strength Treatment/Plan Treatment Plan: Continue Plan of Care Treatment Plan: Bed Mobility, Education, Functional Activity J Luis, Functional Strength, Group Therapy, Gait, Safety, Therapeutic Exercise, Transfers Treatment Duration: Mar 09, 2021 Frequency: At least 5 of 7 days/Wk (IRF) Estimated Hrs Per Day: 1.5 hours per day Patient and/or Family Agrees t: Yes Safety Risks/Education Patient Education: Correct Positioning Teaching Recipient: Patient Teaching Methods: Discussion Response to Teaching: Verbalize Understanding Time/GCodes Time In: 1435 Time Out: 1505 Total Billed Treatment Time: 30 Total Billed Treatment 1, EX x2 (30m) ANJU LOWRY FUR DRY CLEANER HAND Feb 18, 2021 15:59
[2021-02-18] MEDS: NIACIN 500 MG TABLET PO SCH (17:10)
[2021-02-18 19:57] VITALS: BP 127/61
[2021-02-18] MEDS: MICONAZOLE 2% POWDER (DESENEX AF) 90 GM TOP SCH (21:21)
[2021-02-19] MEDS: CALCIUM CARBONATE 500 MG (TUMS) TAB.CHEW PO PRN (01:30)
[2021-02-19] MEDS: CYANOCOBALAMIN 1,000 MCG (VITAMIN B-12) TABLET PO SCH (06:24)
[2021-02-19 06:34] LABS: POTASSIUM 4.2 MMOL/L (3.6-5.0)
[2021-02-19 06:39] LABS: CREATININE SERUM 1.56 MG/DL (0.60-1.30)
[2021-02-19 07:47] VITALS: BP 137/67
[2021-02-19] MEDS: VITAMIN E 180 MG (400 UNITS) CAP PO SCH (08:15)
[2021-02-19] MEDS: DOXYCYCLINE 100 MG (VIBRAMYCIN) TABLET PO SCH ×2 (08:15→20:42)
[2021-02-19] MEDS: SENNA W/DOCUSATE (SENOKOT S) TABLET PO SCH ×2 (08:15→20:42)
[2021-02-19] MEDS: DOCUSATE SODIUM 100 MG (COLACE) CAP PO SCH ×2 (08:15→20:42)
[2021-02-19] MEDS: polyethylene glycoL POWDER 17 GM (MIRALAX) PACK PO SCH (08:15)
[2021-02-19] MEDS: CLOPIDOGREL 75 MG (PLAVIX) TABLET PO SCH (08:15)
[2021-02-19] MEDS: ASPIRIN 81 MG CHEW (CHILDREN'S ASA) PO SCH (08:15)
[2021-02-19] MEDS: VITAMIN D3 125 MCG (5,000 UNITS) CAPSULE PO SCH (08:15)
[2021-02-19] MEDS: FENOFIBRATE 134 MG (LOFIBRA) CAPSULE PO SCH (08:15)
[2021-02-19] MEDS: PANTOPRAZOLE 20 MG TABLET (PROTONIX) PO SCH (08:15)
[2021-02-19] MEDS: MICONAZOLE 2% POWDER (DESENEX AF) 90 GM TOP SCH ×2 (08:16→20:48)
[2021-02-19] MEDS: oxyCODONE ER 10 MG (OxyCONTIN CR) TAB PO SCH ×2 (08:16→20:43)
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
--- NOTE | 2021-02-19 09:24 | Physical Therapy Daily Note ---
PT Daily Note-Current Subjective Patient in recliner pre tx, agrees to PT, has 6-7/10 pain, nurse gives him pain meds. Will be co-treating with OT due to poor patient mobility, strength, endurance, severe pain with activity, coordinate UE and LE during activity, safety and reduce risk of falls. Appearance Patient in recliner post tx with nurse call, phone, tray, all needs met. Mental Status Patient Orientation: Person, Place, Situation TLSO Transfers SCALE: Activities may be completed with or without assistive devices. 5-Pnsayexipd-recxkfh completes the activity by him/herself with no assistance from a helper. 5-Set-up or Clean-up Assistance-helper sets up or cleans up; patient completes activity. [place] assists only prior to or following the activity. 4-Supervision or Touching Assistance-helper provides verbal cues and/or touching/steadying and/or contact guard assistance as patient completes activity. Assistance may be provided throughout the activity or intermittently. 3-Partial/Moderate Assistance-helper does LESS THAN HALF the effort. [place] lifts, holds or supports trunk or limbs, but provides less than half the effort. 2-Substantial/Maximal Assistance-helper does MORE THAN HALF the effort. [place] lifts or holds trunk or limbs and provides more than half the effort. 6-Xztjlgyzj-ydkkri does ALL the effort. Patient does none of the effort to complete the activity. Or, the assistance of 2 or more helpers is required for the patient to complete the activity. If activity was not attempted, code reason: 7-Patient Refused. 9-Not Applicable-not attempted and the patient did not perform the activity before the current illness, exacerbation or injury. 10-Not Attempted due to Environmental Limitations-(lack of equipment, weather restraints, etc.). 88-Not Attempted due to Medical Conditions or Safety Concerns. Sit to Stand (QC): 4 Chair/Rem-li-Kilna Xfer(QC): 4 Patient ambulated to the restroom to the shower bench, undressed partway with assist, sat down, completed undressing, showered, dressed, ambulated to the recliner and finished dressing. Gait Training Distance: 150', 300' Walk 10 feet (QC): 4 Walk 50 ft with 2 Turns(QC): 4 Walk 150 ft (QC): 4 Gait Assistive Device: FWW Slow but steady ambulation, antalgic Exercises sit to stands 2 sets of 5 from elevated therapy table Treatments PT worked on transfers, ambulation, LE strengthening, standing and positioning during bathing and dressing, OT worked on bathing, dressing, UE positioning and safety during activity. Assessment Current Status: Fair Progress Increasing severity of pain during tx, needs frequent rest breaks, moves very slowly due to pain. PT Short Term Goals Short Term Goals Time Frame: Feb 23, 2021 Roll Left & Right: 3 Sit to lyin Lying to sitting on side of be: 3 Sit to stand: 4 Chair/mjj-hl-xffdl transfer: 4 Walk 10 feet: 4 Walk 50 feet with two turns: 4 Walk 150 feet: 4 PT Halfway Goals Account Adjuster Goals PT Account Adjuster Goals Time Frame: Mar 09, 2021 Roll Left & Right (QC): 6 Sit to Lying (QC): 6 Lying-Sitting on Side/Bed(QC): 6 Sit to Stand (QC): 6 Chair/Gqc-tw-Sboyw Xfer(QC): 6 Toilet Transfer (QC): 6 Car Transfer (QC): 6 Does the Patient Walk: Yes Walk 10 feet (QC): 6 Walk 50ft with 2 Turns (QC): 6 Walk 150 ft (QC): 6 Walking 10ft on Uneven Surface: 6 1 Step (curb) (QC): 4 4 Steps (QC): 4 12 Steps (QC): 88 Picking up an Object (QC): 88 Wheel 50 feet with 2 turns (QC: 9 Wheel 150 feet: 9 PT Plan Problem List Problem List: Activity Tolerance, Functional Strength, Safety, Balance, Gait, Transfer, Bed Mobility, ROM Treatment/Plan Treatment Plan: Continue Plan of Care Treatment Plan: Bed Mobility, Education, Functional Activity J Luis, Functional Strength, Group Therapy, Gait, Safety, Therapeutic Exercise, Transfers Treatment Duration: Mar 09, 2021 Frequency: At least 5 of 7 days/Wk (IRF) Estimated Hrs Per Day: 1.5 hours per day Patient and/or Family Agrees t: Yes Safety Risks/Education Patient Education: Gait Training, Transfer Techniques, Correct Positioning, Reviewed Don/Doff Brace, Safety Issues Teaching Recipient: Patient Teaching Methods: Demonstration, Discussion Response to Teaching: Reinforcement Needed Time/GCodes Time In: 0800 Time Out: 0930 Total Billed Treatment Time: 90 Total Billed Treatment 1 visit FA 90' co-treated from [id number] JENNIFER DURON PT Feb 19, 2021 09:24
--- NOTE | 2021-02-19 09:26 | Occupational Ther Daily Note ---
OT Current Status-Daily Note Subjective Pt reports pain as 7/10. Rn notified and pain meds given during session. Appearance Pt left sitting in recliner, BLE's elevated, all needs within reach Mental Status/Objective Patient Orientation: Person, Place, Situation ADL-Treatment Therapy Code Descriptions/Definitions Functional [place] Measure: 0=Not Assessed/NA 4=Minimal Assistance 1=Total Assistance 5=Supervision or Setup 2=Maximal Assistance 6=Modified [place] 3=Moderate Assistance 7=Complete IndependenceSCALE: Activities may be completed with or without assistive devices. 8-Pxbysesdag-xuqgkos completes the activity by him/herself with no assistance from a helper. 5-Set-up or Clean-up Assistance-helper sets up or cleans up; patient completes activity. [place] assists only prior to or following the activity. 4-Supervision or Touching Assistance-helper provides verbal cues and/or touching/steadying and/or contact guard assistance as patient completes activity. Assistance may be provided throughout the activity or intermittently. 3-Partial/Moderate Assistance-helper does LESS THAN HALF the effort. [place] lifts, holds or supports trunk or limbs, but provides less than half the effort. 2-Substantial/Maximal Assistance-helper does MORE THAN HALF the effort. [place] lifts or holds trunk or limbs and provides more than half the effort. 0-Naaxhjazx-hzxzha does ALL the effort. Patient does none of the effort to complete the activity. Or, the assistance of 2 or more helpers is required for the patient to complete the activity. If activity was not attempted, code reason: 7-Patient Refused. 9-Not Applicable-not attempted and the patient did not perform the activity before the current illness, exacerbation or injury. 10-Not Attempted due to Environmental Limitations-(lack of equipment, weather restraints, etc.). 88-Not Attempted due to Medical Conditions or Safety Concerns. Bathing Location: L Arm, R Arm, L Upper Leg, R Upper Leg, L Lower Leg (including foot), R Lower Leg (including foot), Chest, Abdomen, Buttocks, Perineal Area Shower/Bathe Self (QC): 4 Upper Body Dressing (QC): 3 Lower Body Dressing (QC): 4 Toileting Hygiene (QC): 4 Co-treat with PT secondary to severe pain, poor tolerance, endurance, mobility and increase fall risk. Shower performed; 100% completed in sitting due to not having TLSO brace donned. OT instructed pt on lateral pelvic leans while maintaining good body mechanics in order to reach/wash buttocks. post instruction, pt able to perform without assist. He utilized LHS to wash/dry below knees. Several rest breaks needed due to pain, however length of rest breaks significantly shorter than past sessions. Min a needed to bring button up shirt around back of torso, pt able to complete remaining steps. Continues to need assist with donning TLSO brace, but able to assist more this date. Majority of difficulty is getting brace initiated around back. Good recall of use of retail loss prevention specialist with no cues needed this date. Close sup as he stood to manage pants over hips. Assist to don bilateral akanksha hose and socks secondary to time restraints. Pt has demonstrated ability to use sock aid with min a in past sessions. He stood at toilet to void with close sba/cga for safety. Prior to shower, pt required Min a and mod verbal cues for sequencing steps of shower transfer. Brief discussion on purchase of shower chair for post d/c, further education will be needed. Other Treatment Multiple sit<>stands throughout treatment. PT focusing on LE strengthening during functional transfers, performed until fatigue, ~5. Slow and controlled with all transfers. Slow but steady gait. Cues to lift feet for improved foot clearance. Pt fatigues easily and requires several sitting and standing breaks during mobility/activities. Education OT Patient Education: Correct positioning, Energy conservation, Exercise program, Modified ADL techniques, Progress toward Goal/Update tx plan, Purpose of tx/functional activities, Reviewed precautions, Rehab process, Safety issues, Transfer techniques, Use of adapted equipment Teaching Recipient: Patient Teaching Methods: Demonstration, Discussion Response to Teaching: Verbalize Understanding, Return Demonstration, Reinforcement Needed OT Short Term Goals Short Term Goals Eatin Oral hygiene: 4 Toileting hygiene: 4 Shower/bathe self: 3 Upper body dressin Lower body dressin Putting on/taking off footwear: 3 OT Nuisance Wildlife Control Operator Goals Nuisance Wildlife Control Operator Goals Eating (QC): 6 Oral Hygiene (QC): 6 Toileting Hygiene (QC): 6 Shower/Bathe Self (QC): 4 Upper Body Dressing (QC): 4 Lower Body Dressing (QC): 5 On/Off Footwear (QC): 5 1=Demonstrate adherence to instructed precautions during ADL tasks. 2=Patient will verbalize/demonstrate understanding of assistive devices/modifications for ADL. 3=Patient will improve strength/tolerance for activity to enable patient to perform ADL's. OT Education/Plan Problem List/Assessment Assessment: Decreased Activ Tolerance, Decreased Safety Aware, Decreased UE Strength, Edema, Impaired Coordination, Impaired Funct Balance, Impaired I ADL's, Impaired Self-Care Skills, Restricted Funct UE ROM Discharge Recommendations Plan/Recommendations: Continue POC Equpiment Recommendations-D/C: Rails on Tub/Shower, Bath Chair, Extended Shower Sprayer, Investment Executive, Sock Aide Treatment Plan/Plan of Care Treatment,Training & Education: Yes Patient would benefit from OT for education, treatment and training to promote independence in ADL's, mobility, safety and/or upper extremity function for ADL's. Plan of Care: ADL Retraining, Functional Mobility, Group Exercise/Act as Ind, Orthotic Fitting/Training, UE Funct Exercise/Act Treatment Duration: Mar 09, 2021 Frequency: At least 5 of 7 days/Wk (IRF) Estimated Hrs Per Day: 1.5 hours per day Agreement: Yes Rehab Potential: Fair Time/GCodes Start Time: 07:55 Stop Time: 09:25 Total Time Billed (hr/min): 90 Billed Treatment Time 1 visit, ADL x3, FA x3 Co treat from [id number] oL Riley OT Feb 19, 2021 09:26
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
[2021-02-19] MEDS: ENOXAPARIN 40 MG/0.4 ML (LOVENOX) SYR SC SCH (13:47)
[2021-02-19] MEDS: OMEGA 3 (FISH OIL) 1000 MG CAP PO SCH (13:47)
[2021-02-19] MEDS ORDERED: NIACIN ER (NIASPAN) 500 MG TAB PO SCH (17:00)
[2021-02-19] MEDS: RED YEAST RICE 600 MG PO SCH (18:06)
[2021-02-19] MEDS: NIACIN ER (NIASPAN) 500 MG TAB PO SCH (18:06)
[2021-02-19] MEDS: BISACODYL 10 MG SUPP (DULCOLAX) PR PRN (18:10)
[2021-02-19 20:34] VITALS: BP 138/70
[2021-02-19] MEDS ORDERED: RELABEL FOR HOME USE MC SCH (21:00)
[2021-02-20] MEDS: CYANOCOBALAMIN 1,000 MCG (VITAMIN B-12) TABLET PO SCH (06:18)
[2021-02-20 06:33] LABS: POTASSIUM 4.5 MMOL/L (3.6-5.0)
[2021-02-20 06:35] LABS: CALCIUM 9.7 MG/DL (8.5-10.1)
[2021-02-20 06:39] LABS: CREATININE SERUM 1.55 MG/DL (0.60-1.30)
[2021-02-20] MEDS: DOXYCYCLINE 100 MG (VIBRAMYCIN) TABLET PO SCH ×2 (08:20→21:05)
[2021-02-20] MEDS: VITAMIN E 180 MG (400 UNITS) CAP PO SCH (08:20)
[2021-02-20] MEDS: VITAMIN D3 125 MCG (5,000 UNITS) CAPSULE PO SCH (08:20)
[2021-02-20] MEDS: PANTOPRAZOLE 20 MG TABLET (PROTONIX) PO SCH (08:20)
[2021-02-20] MEDS: CLOPIDOGREL 75 MG (PLAVIX) TABLET PO SCH (08:20)
[2021-02-20] MEDS: DOCUSATE SODIUM 100 MG (COLACE) CAP PO SCH ×2 (08:20→21:05)
[2021-02-20] MEDS: FENOFIBRATE 134 MG (LOFIBRA) CAPSULE PO SCH (08:20)
[2021-02-20] MEDS: NIACIN ER (NIASPAN) 500 MG TAB PO SCH ×2 (08:21→18:09)
[2021-02-20] MEDS: polyethylene glycoL POWDER 17 GM (MIRALAX) PACK PO SCH (08:21)
[2021-02-20] MEDS: ASPIRIN 81 MG CHEW (CHILDREN'S ASA) PO SCH (08:21)
[2021-02-20] MEDS: SENNA W/DOCUSATE (SENOKOT S) TABLET PO SCH ×2 (08:21→21:05)
[2021-02-20] MEDS: RED YEAST RICE 600 MG PO SCH ×2 (08:22→18:09)
[2021-02-20 08:26] VITALS: BP 119/74
[2021-02-20] MEDS: oxyCODONE ER 10 MG (OxyCONTIN CR) TAB PO SCH ×2 (10:09→21:05)
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
[2021-02-20] MEDS: MICONAZOLE 2% POWDER (DESENEX AF) 90 GM TOP SCH ×2 (10:10→21:12)
--- NOTE | 2021-02-20 10:38 | Physical Therapy Daily Note ---
PT Daily Note-Current Subjective Pt in recliner upon arrival and states he slept there all night. Pt states sharp, burning pain in R foot and that he can't WB through it today. Pt states he can't move it w/o pain being 10/10. RN notified and administered pain medication while HORSE AND WAGON DRIVER in room. Pt states pain kept him up last night and didn't sleep well. Pain Numeric Pain Scale: 10-Worst Possible Pain Location: Right Location Body Site: Foot Pain Description: Burning Mental Status Patient Orientation: Person, Place, Time, Situation Transfers SCALE: Activities may be completed with or without assistive devices. 9-Rvcoeoeyli-dmqyqhe completes the activity by him/herself with no assistance from a helper. 5-Set-up or Clean-up Assistance-helper sets up or cleans up; patient completes activity. [place] assists only prior to or following the activity. 4-Supervision or Touching Assistance-helper provides verbal cues and/or touching/steadying and/or contact guard assistance as patient completes activity. Assistance may be provided throughout the activity or intermittently. 3-Partial/Moderate Assistance-helper does LESS THAN HALF the effort. [place] lifts, holds or supports trunk or limbs, but provides less than half the effort. 2-Substantial/Maximal Assistance-helper does MORE THAN HALF the effort. [place] lifts or holds trunk or limbs and provides more than half the effort. 9-Hgiqttpzi-xsazvc does ALL the effort. Patient does none of the effort to complete the activity. Or, the assistance of 2 or more helpers is required for the patient to complete the activity. If activity was not attempted, code reason: 7-Patient Refused. 9-Not Applicable-not attempted and the patient did not perform the activity before the current illness, exacerbation or injury. 10-Not Attempted due to Environmental Limitations-(lack of equipment, weather restraints, etc.). 88-Not Attempted due to Medical Conditions or Safety Concerns. Treatments Pt in recliner, HORSE AND WAGON DRIVER A pt in positioning by placing pads under elbows and pillow under LE. HORSE AND WAGON DRIVER demonstrated ex pt can perform in recliner once pain has improved. Pt remains in recliner w/ all needs met, call light in hand. Assessment Current Status: Fair Progress Pt limited by pain in foot, unable to WB or move it. PT Short Term Goals Short Term Goals Time Frame: Feb 23, 2021 Roll Left & Right: 3 Sit to lyin Lying to sitting on side of be: 3 Sit to stand: 4 Chair/swz-sm-djrox transfer: 4 Walk 10 feet: 4 Walk 50 feet with two turns: 4 Walk 150 feet: 4 PT Catering Coordinator Goals Long-Term Goals PT Long-Term Goals Time Frame: Mar 09, 2021 Roll Left & Right (QC): 6 Sit to Lying (QC): 6 Lying-Sitting on Side/Bed(QC): 6 Sit to Stand (QC): 6 Chair/Fkh-ua-Auoro Xfer(QC): 6 Toilet Transfer (QC): 6 Car Transfer (QC): 6 Does the Patient Walk: Yes Walk 10 feet (QC): 6 Walk 50ft with 2 Turns (QC): 6 Walk 150 ft (QC): 6 Walking 10ft on Uneven Surface: 6 1 Step (curb) (QC): 4 4 Steps (QC): 4 12 Steps (QC): 88 Picking up an Object (QC): 88 Wheel 50 feet with 2 turns (QC: 9 Wheel 150 feet: 9 PT Plan Treatment/Plan Treatment Plan: Continue Plan of Care Treatment Plan: Bed Mobility, Education, Functional Activity J Luis, Functional Strength, Group Therapy, Gait, Safety, Therapeutic Exercise, Transfers Treatment Duration: Mar 09, 2021 Frequency: At least 5 of 7 days/Wk (IRF) Estimated Hrs Per Day: 1.5 hours per day Patient and/or Family Agrees t: Yes Safety Risks/Education Patient Education: Correct Positioning Teaching Recipient: Patient Teaching Methods: Demonstration, Discussion Response to Teaching: Verbalize Understanding Time/GCodes Time In: 1027 Time Out: 1036 Total Billed Treatment Time: 9 Total Billed Treatment BIRD Powers SYDNEY HORSE AND WAGON DRIVER Feb 20, 2021 10:38
[2021-02-20] MEDS: OMEGA 3 (FISH OIL) 1000 MG CAP PO SCH (12:05)
[2021-02-20] MEDS: FUROSEMIDE 40 MG (LASIX) TAB PO PRN (13:39)
[2021-02-20] MEDS: ENOXAPARIN 40 MG/0.4 ML (LOVENOX) SYR SC SCH (13:41)
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
[2021-02-20 20:59] VITALS: BP 137/89
[2021-02-21] MEDS: CYANOCOBALAMIN 1,000 MCG (VITAMIN B-12) TABLET PO SCH (06:19)
[2021-02-21] MEDS: DOXYCYCLINE 100 MG (VIBRAMYCIN) TABLET PO SCH ×2 (08:38→19:38)
[2021-02-21] MEDS: SENNA W/DOCUSATE (SENOKOT S) TABLET PO SCH ×2 (08:38→19:38)
[2021-02-21] MEDS: VITAMIN D3 125 MCG (5,000 UNITS) CAPSULE PO SCH (08:38)
[2021-02-21] MEDS: DOCUSATE SODIUM 100 MG (COLACE) CAP PO SCH ×2 (08:38→19:38)
[2021-02-21] MEDS: CLOPIDOGREL 75 MG (PLAVIX) TABLET PO SCH (08:38)
[2021-02-21] MEDS: FENOFIBRATE 134 MG (LOFIBRA) CAPSULE PO SCH ×2 (08:38→09:00)
[2021-02-21] MEDS: NIACIN ER (NIASPAN) 500 MG TAB PO SCH ×2 (08:38→17:21)
[2021-02-21] MEDS: ASPIRIN 81 MG CHEW (CHILDREN'S ASA) PO SCH (08:39)
[2021-02-21] MEDS: VITAMIN E 180 MG (400 UNITS) CAP PO SCH (08:39)
[2021-02-21] MEDS: polyethylene glycoL POWDER 17 GM (MIRALAX) PACK PO SCH (08:39)
[2021-02-21] MEDS: PANTOPRAZOLE 20 MG TABLET (PROTONIX) PO SCH (08:39)
[2021-02-21] MEDS: MICONAZOLE 2% POWDER (DESENEX AF) 90 GM TOP SCH ×2 (08:44→19:40)
[2021-02-21] MEDS: RED YEAST RICE 600 MG PO SCH ×2 (08:44→17:22)
[2021-02-21 08:50] VITALS: BP 130/62
[2021-02-21] MEDS: oxyCODONE ER 10 MG (OxyCONTIN CR) TAB PO SCH ×2 (10:15→19:38)
[2021-02-21] MEDS: OMEGA 3 (FISH OIL) 1000 MG CAP PO SCH (11:48)
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
[2021-02-21] MEDS ORDERED: FUROSEMIDE 40 MG (LASIX) TAB PO ONE (12:15)
[2021-02-21] MEDS: ENOXAPARIN 40 MG/0.4 ML (LOVENOX) SYR SC SCH (13:34)
[2021-02-21] MEDS: BISACODYL 10 MG SUPP (DULCOLAX) PR PRN (18:26)
[2021-02-21 20:05] VITALS: BP 131/65
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
[2021-02-22] MEDS: CYANOCOBALAMIN 1,000 MCG (VITAMIN B-12) TABLET PO SCH (05:25)
[2021-02-22 06:06] LABS: BASOPHILS % (AUTO) 0 % (0-10); EOSINOPHILS # (AUTO) 0.2 10^3/uL (0.0-0.3); EOSINOPHILS % (AUTO) 3 % (0-10); HEMATOCRIT 30 % (40-54); HEMOGLOBIN 9.8 g/dL (13.3-17.7); LYMPHOCYTES # (AUTO) 1.3 10^3/uL (1.0-4.0); LYMPHOCYTES % (AUTO) 26 % (12-44); MEAN CORPUSCULAR HEMOGLOBIN 33 pg (25-34); MEAN CORPUSCULAR HGB CONC 33 g/dL (32-36); MEAN CORPUSCULAR VOLUME 100 fL (80-99); MEAN PLATELET VOLUME 10.3 fL (9.0-12.2); MONOCYTES # (AUTO) 0.6 10^3/uL (0.0-1.0); MONOCYTES % (AUTO) 12 % (0-12); NEUTROPHILS % (AUTO) 59 % (42-75); PLATELET COUNT 249 10^3/uL (130-400); WHITE BLOOD COUNT 5.1 10^3/uL (4.3-11.0)
[2021-02-22 06:38] LABS: ALBUMIN 3.1 GM/DL (3.2-4.5)
[2021-02-22 06:39] LABS: POTASSIUM 4.1 MMOL/L (3.6-5.0)
[2021-02-22 06:40] LABS: CALCIUM 9.5 MG/DL (8.5-10.1)
[2021-02-22 06:41] LABS: TOTAL PROTEIN 7.2 GM/DL (6.4-8.2)
[2021-02-22 06:43] LABS: BILIRUBIN,TOTAL 0.8 MG/DL (0.1-1.0)
[2021-02-22 06:45] LABS: CREATININE SERUM 1.81 MG/DL (0.60-1.30)
[2021-02-22 07:36] VITALS: BP 127/65
[2021-02-22] MEDS: SENNA W/DOCUSATE (SENOKOT S) TABLET PO SCH ×2 (08:14→20:38)
[2021-02-22] MEDS: NIACIN ER (NIASPAN) 500 MG TAB PO SCH ×2 (08:14→17:07)
[2021-02-22] MEDS: VITAMIN E 180 MG (400 UNITS) CAP PO SCH (08:14)
[2021-02-22] MEDS: VITAMIN D3 125 MCG (5,000 UNITS) CAPSULE PO SCH (08:14)
[2021-02-22] MEDS: ASPIRIN 81 MG CHEW (CHILDREN'S ASA) PO SCH (08:14)
[2021-02-22] MEDS: DOXYCYCLINE 100 MG (VIBRAMYCIN) TABLET PO SCH ×2 (08:14→20:38)
[2021-02-22] MEDS: PANTOPRAZOLE 20 MG TABLET (PROTONIX) PO SCH (08:14)
[2021-02-22] MEDS: CLOPIDOGREL 75 MG (PLAVIX) TABLET PO SCH (08:14)
[2021-02-22] MEDS: FENOFIBRATE 134 MG (LOFIBRA) CAPSULE PO SCH (08:14)
[2021-02-22] MEDS: DOCUSATE SODIUM 100 MG (COLACE) CAP PO SCH ×2 (08:14→20:38)
[2021-02-22] MEDS: RED YEAST RICE 600 MG PO SCH ×2 (08:15→17:07)
[2021-02-22] MEDS: oxyCODONE ER 10 MG (OxyCONTIN CR) TAB PO SCH ×2 (08:15→20:38)
[2021-02-22] MEDS: polyethylene glycoL POWDER 17 GM (MIRALAX) PACK PO SCH (08:15)
[2021-02-22] MEDS: FUROSEMIDE 40 MG (LASIX) TAB PO PRN (08:21)
--- NOTE | 2021-02-22 08:58 | Physical Therapy Daily Note ---
PT Daily Note-Current Subjective Patient in recliner pre tx, agrees to PT, has 5-6/10 pain in back and chest, nurse in room, gives pain meds. Will be co-treating with OT due to poor patient mobility, strength, endurance, severe pain with activity, coordinate UE and LE with activity, safety and reduce risk of falls. Patient now has a fracture in his right foot and is NWB at this time. Patient refuses to stand with bearing weight on left leg, refuses to get out of the chair. Appearance Patient in recliner post tx with nurse call, phone, tray, legs elevated and on pillow. Mental Status Patient Orientation: Person, Place, Situation Transfers SCALE: Activities may be completed with or without assistive devices. 9-Vbcmkjjpwt-qkagjob completes the activity by him/herself with no assistance from a helper. 5-Set-up or Clean-up Assistance-helper sets up or cleans up; patient completes activity. [place] assists only prior to or following the activity. 4-Supervision or Touching Assistance-helper provides verbal cues and/or touching/steadying and/or contact guard assistance as patient completes activity. Assistance may be provided throughout the activity or intermittently. 3-Partial/Moderate Assistance-helper does LESS THAN HALF the effort. [place] lifts, holds or supports trunk or limbs, but provides less than half the effort. 2-Substantial/Maximal Assistance-helper does MORE THAN HALF the effort. [place] lifts or holds trunk or limbs and provides more than half the effort. 3-Qfxpjvelb-aggeuh does ALL the effort. Patient does none of the effort to complete the activity. Or, the assistance of 2 or more helpers is required for the patient to complete the activity. If activity was not attempted, code reason: 7-Patient Refused. 9-Not Applicable-not attempted and the patient did not perform the activity before the current illness, exacerbation or injury. 10-Not Attempted due to Environmental Limitations-(lack of equipment, weather restraints, etc.). 88-Not Attempted due to Medical Conditions or Safety Concerns. assist OT with positioning during ADL's in chair Weight Bearing Right Lower Extremity: Right Non Weight Bearing Left Lower Extremity: Left Weight Bearing/Tolerated Exercises Seated Therapy Exercises: Ankle pumps, Long arc quads, Hip flexion, Hamstring Curls (with RTB), Hip abd/add (with ball and RTB) shoulder shrugs x20 Treatments PT performed UE and LE exercises, positioning during ADL's, OT performed UE exercises and UE positioning and safety during activity Assessment Current Status: Poor Progress Patient refuses to get out of the recliner due to right foot pain. PT Short Term Goals Short Term Goals Time Frame: Feb 23, 2021 Roll Left & Right: 3 Sit to lyin Lying to sitting on side of be: 3 Sit to stand: 4 Chair/fer-zk-aikui transfer: 4 Walk 10 feet: 4 Walk 50 feet with two turns: 4 Walk 150 feet: 4 PT Forder Operator Goals Residential Goals PT Forder Operator Goals Time Frame: Mar 09, 2021 Roll Left & Right (QC): 6 Sit to Lying (QC): 6 Lying-Sitting on Side/Bed(QC): 6 Sit to Stand (QC): 6 Chair/Udp-iw-Gutwg Xfer(QC): 6 Toilet Transfer (QC): 6 Car Transfer (QC): 6 Does the Patient Walk: Yes Walk 10 feet (QC): 6 Walk 50ft with 2 Turns (QC): 6 Walk 150 ft (QC): 6 Walking 10ft on Uneven Surface: 6 1 Step (curb) (QC): 4 4 Steps (QC): 4 12 Steps (QC): 88 Picking up an Object (QC): 88 Wheel 50 feet with 2 turns (QC: 9 Wheel 150 feet: 9 PT Plan Problem List Problem List: Activity Tolerance, Functional Strength, Safety, Balance, Gait, Transfer, Bed Mobility, ROM Treatment/Plan Treatment Plan: Continue Plan of Care Treatment Plan: Bed Mobility, Education, Functional Activity J Luis, Functional Strength, Group Therapy, Gait, Safety, Therapeutic Exercise, Transfers Treatment Duration: Mar 09, 2021 Frequency: At least 5 of 7 days/Wk (IRF) Estimated Hrs Per Day: 1.5 hours per day Patient and/or Family Agrees t: Yes Safety Risks/Education Patient Education: Reviewed Precautions, Correct Positioning, Safety Issues Teaching Recipient: Patient Teaching Methods: Demonstration, Discussion Response to Teaching: Reinforcement Needed Time/GCodes Time In: 0800 Time Out: 0900 Total Billed Treatment Time: 60 Total Billed Treatment 1 visit FA 30' EX 30' JENINFER DURON PT Feb 22, 2021 08:58
--- NOTE | 2021-02-22 09:01 | Occupational Ther Daily Note ---
OT Current Status-Daily Note Subjective Pt reports 7/10 pain in back, chest, and R foot. RN aware and pain meds given at beginning of session. Appearance Pt left sitting in chair, all needs within reach at therapist departure. ADL-Treatment Therapy Code Descriptions/Definitions Functional [place] Measure: 0=Not Assessed/NA 4=Minimal Assistance 1=Total Assistance 5=Supervision or Setup 2=Maximal Assistance 6=Modified [place] 3=Moderate Assistance 7=Complete IndependenceSCALE: Activities may be completed with or without assistive devices. 8-Edjxzqgzqn-vdlymsr completes the activity by him/herself with no assistance from a helper. 5-Set-up or Clean-up Assistance-helper sets up or cleans up; patient completes activity. [place] assists only prior to or following the activity. 4-Supervision or Touching Assistance-helper provides verbal cues and/or touching/steadying and/or contact guard assistance as patient completes activity. Assistance may be provided throughout the activity or intermittently. 3-Partial/Moderate Assistance-helper does LESS THAN HALF the effort. [place] lifts, holds or supports trunk or limbs, but provides less than half the effort. 2-Substantial/Maximal Assistance-helper does MORE THAN HALF the effort. [place] lifts or holds trunk or limbs and provides more than half the effort. 3-Zxfgxohih-hcxqxe does ALL the effort. Patient does none of the effort to complete the activity. Or, the assistance of 2 or more helpers is required for the patient to complete the activity. If activity was not attempted, code reason: 7-Patient Refused. 9-Not Applicable-not attempted and the patient did not perform the activity before the current illness, exacerbation or injury. 10-Not Attempted due to Environmental Limitations-(lack of equipment, weather restraints, etc.). 88-Not Attempted due to Medical Conditions or Safety Concerns. Oral Hygiene (QC): 4 Pt with new RLE NWB orders. Ortho consulted at this time. Pt adamantly refused any stand pivot transfers until Ortho is seen. Discussion/education on continuing mobility and practicing transfers while adhering to NWB status. Pt continues to decline. All Adls thus performed at chair level with set up from therapist. Activities included shaving, oral care, and face washing. Pt moves slowly with all tasks. Other Treatment Will be co-treating with PT due to poor patient mobility, strength, endurance, severe pain with activity, coordinate UE and LE with activity, safety and new NWB precautions on RLE. Due to refusal to complete activities out of chair, exercises performed seated in recliner. PT performed LE exercises and positioning during functional tasks, OT performed UE exercises and UE positioning and safety during adls. Red theraband issued. Good tolerance noted. Min cues to perform all movements through full range, especially with fatigue. M in cues for correct form and control of movement. Education OT Patient Education: Correct positioning, Energy conservation, Exercise program, Modified ADL techniques, Progress toward Goal/Update tx plan, Purpose of tx/functional activities, Reviewed precautions, Rehab process, Safety issues, Transfer techniques Teaching Recipient: Patient Teaching Methods: Demonstration, Discussion Response to Teaching: Verbalize Understanding, Return Demonstration, Reinforcement Needed OT Short Term Goals Short Term Goals Eatin Oral hygiene: 4 Toileting hygiene: 4 Shower/bathe self: 3 Upper body dressin Lower body dressin Putting on/taking off footwear: 3 OT Body Cleaner Goals Body Cleaner Goals Eating (QC): 6 Oral Hygiene (QC): 6 Toileting Hygiene (QC): 6 Shower/Bathe Self (QC): 4 Upper Body Dressing (QC): 4 Lower Body Dressing (QC): 5 On/Off Footwear (QC): 5 1=Demonstrate adherence to instructed precautions during ADL tasks. 2=Patient will verbalize/demonstrate understanding of assistive devices/modifications for ADL. 3=Patient will improve strength/tolerance for activity to enable patient to perform ADL's. OT Education/Plan Problem List/Assessment Assessment: Decreased Activ Tolerance, Decreased Safety Aware, Decreased UE Strength, Impaired Funct Balance, Impaired I ADL's, Impaired Self-Care Skills Discharge Recommendations Plan/Recommendations: Continue POC Equpiment Recommendations-D/C: Database Specialist, Sock Aide Treatment Plan/Plan of Care Treatment,Training & Education: Yes Patient would benefit from OT for education, treatment and training to promote independence in ADL's, mobility, safety and/or upper extremity function for ADL's. Plan of Care: ADL Retraining, Functional Mobility, Group Exercise/Act as Ind, Orthotic Fitting/Training, UE Funct Exercise/Act Treatment Duration: Mar 09, 2021 Frequency: At least 5 of 7 days/Wk (IRF) Estimated Hrs Per Day: 1.5 hours per day Agreement: Yes Rehab Potential: Fair Time/GCodes Start Time: 08:00 Stop Time: 09:00 Total Time Billed (hr/min): 60 Billed Treatment Time 1 visit, ADL x2, EX x2 Lo Riley OT Feb 22, 2021 09:01
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
[2021-02-22] MEDS: MICONAZOLE 2% POWDER (DESENEX AF) 90 GM TOP SCH ×2 (10:42→20:39)
--- NOTE | 2021-02-22 13:33 | Occupational Ther Daily Note ---
OT Current Status-Daily Note Subjective Pt. in recliner eating lunch. Pt. agrees to therapy when lunch finished. Mental Status/Objective Patient Orientation: Person, Place, Time, Situation Attachments: Oxygen ADL-Treatment Therapy Code Descriptions/Definitions Functional [place] Measure: 0=Not Assessed/NA 4=Minimal Assistance 1=Total Assistance 5=Supervision or Setup 2=Maximal Assistance 6=Modified [place] 3=Moderate Assistance 7=Complete IndependenceSCALE: Activities may be completed with or without assistive devices. 2-Rwlydkrgoh-csxsdyr completes the activity by him/herself with no assistance from a helper. 5-Set-up or Clean-up Assistance-helper sets up or cleans up; patient completes activity. [place] assists only prior to or following the activity. 4-Supervision or Touching Assistance-helper provides verbal cues and/or touching/steadying and/or contact guard assistance as patient completes activity. Assistance may be provided throughout the activity or intermittently. 3-Partial/Moderate Assistance-helper does LESS THAN HALF the effort. [place] lifts, holds or supports trunk or limbs, but provides less than half the effort. 2-Substantial/Maximal Assistance-helper does MORE THAN HALF the effort. [place] lifts or holds trunk or limbs and provides more than half the effort. 1-Bglogrmna-cjvrrr does ALL the effort. Patient does none of the effort to complete the activity. Or, the assistance of 2 or more helpers is required for the patient to complete the activity. If activity was not attempted, code reason: 7-Patient Refused. 9-Not Applicable-not attempted and the patient did not perform the activity before the current illness, exacerbation or injury. 10-Not Attempted due to Environmental Limitations-(lack of equipment, weather restraints, etc.). 88-Not Attempted due to Medical Conditions or Safety Concerns. Other Treatment Skilled education provided on energy conservation techniques. Pt reminded of adhering to sternal precautions during any functional activity. Pt. states "If I don't feel like doing it, I won't make a job of it right then", pt. states understanding Practicing the 4 Ps states needing to slow down/pace when performing functional tasks. Pt. seated in recliner in room, daughter present. Call light/phone in reach, all needs met in room. Education OT Patient Education: Energy conservation Teaching Recipient: Patient, Family Teaching Methods: Discussion Response to Teaching: Verbalize Understanding OT Short Term Goals Short Term Goals Eatin Oral hygiene: 4 Toileting hygiene: 4 Shower/bathe self: 3 Upper body dressin Lower body dressin Putting on/taking off footwear: 3 OT Care Home Goals Bedspread Cutter Goals Eating (QC): 6 Oral Hygiene (QC): 6 Toileting Hygiene (QC): 6 Shower/Bathe Self (QC): 4 Upper Body Dressing (QC): 4 Lower Body Dressing (QC): 5 On/Off Footwear (QC): 5 1=Demonstrate adherence to instructed precautions during ADL tasks. 2=Patient will verbalize/demonstrate understanding of assistive devices/modifications for ADL. 3=Patient will improve strength/tolerance for activity to enable patient to perform ADL's. OT Education/Plan Problem List/Assessment Assessment: Decreased Activ Tolerance, Impaired I ADL's, Impaired Self-Care Skills Discharge Recommendations Plan/Recommendations: Continue POC Treatment Plan/Plan of Care Patient would benefit from OT for education, treatment and training to promote independence in ADL's, mobility, safety and/or upper extremity function for ADL's. Plan of Care: ADL Retraining, Functional Mobility, Group Exercise/Act as Ind, Orthotic Fitting/Training, UE Funct Exercise/Act Treatment Duration: Mar 09, 2021 Frequency: At least 5 of 7 days/Wk (IRF) Estimated Hrs Per Day: 1.5 hours per day Agreement: Yes Rehab Potential: Fair Time/GCodes Start Time: 13:00 Stop Time: 13:30 Total Time Billed (hr/min): 30 Billed Treatment Time 1 visit- FA 2 (30 mins) HOMER FERNANDEZ Feb 22, 2021 13:33
[2021-02-22] MEDS: OMEGA 3 (FISH OIL) 1000 MG CAP PO SCH (13:39)
[2021-02-22] MEDS: ENOXAPARIN 40 MG/0.4 ML (LOVENOX) SYR SC SCH (13:39)
--- NOTE | 2021-02-22 15:09 | Physical Therapy Daily Note ---
PT Daily Note-Current Subjective Pt sitting in recliner with daughter present upon arrival. Pt agrees to PT. Pain Location Body Site: Back Pain Description: Ache Mental Status Patient Orientation: Person, Place, Situation Transfers SCALE: Activities may be completed with or without assistive devices. 0-Bobzdkwdup-esykhep completes the activity by him/herself with no assistance from a helper. 5-Set-up or Clean-up Assistance-helper sets up or cleans up; patient completes activity. [place] assists only prior to or following the activity. 4-Supervision or Touching Assistance-helper provides verbal cues and/or touching/steadying and/or contact guard assistance as patient completes activity. Assistance may be provided throughout the activity or intermittently. 3-Partial/Moderate Assistance-helper does LESS THAN HALF the effort. [place] lifts, holds or supports trunk or limbs, but provides less than half the effort. 2-Substantial/Maximal Assistance-helper does MORE THAN HALF the effort. [place] lifts or holds trunk or limbs and provides more than half the effort. 0-Iczfdallj-qlhdhr does ALL the effort. Patient does none of the effort to complete the activity. Or, the assistance of 2 or more helpers is required for the patient to complete the activity. If activity was not attempted, code reason: 7-Patient Refused. 9-Not Applicable-not attempted and the patient did not perform the activity before the current illness, exacerbation or injury. 10-Not Attempted due to Environmental Limitations-(lack of equipment, weather restraints, etc.). 88-Not Attempted due to Medical Conditions or Safety Concerns. Sit to Stand (QC): 5 Weight Bearing Right Lower Extremity: Right Non Weight Bearing Left Lower Extremity: Left Weight Bearing/Tolerated Exercises Supine Ex: Ankle pumps, Quad Set, Glut sets, Heel Slides, Short Arc Quads, Straight leg raise, Hip abd/add Supine Reps: 15 Treatments Pt completes Supine Ex with RB as needed. Pt asks to stand to stretch and use urinal. Pt returns to recliner to rest with B LE positioned on pillows for elevation. All needs met, call light in hand. Assessment Current Status: Good Progress Pt fatigues, needing occasional RB. PT Short Term Goals Short Term Goals Time Frame: Feb 23, 2021 Roll Left & Right: 3 Sit to lyin Lying to sitting on side of be: 3 Sit to stand: 4 Chair/hmd-xm-shbmr transfer: 4 Walk 10 feet: 4 Walk 50 feet with two turns: 4 Walk 150 feet: 4 PT Residential Goals Designer And Patternmaker Goals PT Designer And Patternmaker Goals Time Frame: Mar 09, 2021 Roll Left & Right (QC): 6 Sit to Lying (QC): 6 Lying-Sitting on Side/Bed(QC): 6 Sit to Stand (QC): 6 Chair/Gmf-dr-Eahkm Xfer(QC): 6 Toilet Transfer (QC): 6 Car Transfer (QC): 6 Does the Patient Walk: Yes Walk 10 feet (QC): 6 Walk 50ft with 2 Turns (QC): 6 Walk 150 ft (QC): 6 Walking 10ft on Uneven Surface: 6 1 Step (curb) (QC): 4 4 Steps (QC): 4 12 Steps (QC): 88 Picking up an Object (QC): 88 Wheel 50 feet with 2 turns (QC: 9 Wheel 150 feet: 9 PT Plan Problem List Problem List: Activity Tolerance, Functional Strength Treatment/Plan Treatment Plan: Continue Plan of Care Treatment Plan: Bed Mobility, Education, Functional Activity J Luis, Functional Strength, Group Therapy, Gait, Safety, Therapeutic Exercise, Transfers Treatment Duration: Mar 09, 2021 Frequency: At least 5 of 7 days/Wk (IRF) Estimated Hrs Per Day: 1.5 hours per day Patient and/or Family Agrees t: Yes Time/GCodes Time In: 1425 Time Out: 1455 Total Billed Treatment Time: 30 Total Billed Treatment 1, EX (20m) & FA (10m) ANJU LOWRY ENTRY ENGINEER Feb 22, 2021 15:09
[2021-02-22 20:00] VITALS: BP 134/70
[2021-02-23] MEDS: CYANOCOBALAMIN 1,000 MCG (VITAMIN B-12) TABLET PO SCH (06:58)
[2021-02-23] MEDS: PANTOPRAZOLE 20 MG TABLET (PROTONIX) PO SCH (07:34)
[2021-02-23] MEDS: FENOFIBRATE 134 MG (LOFIBRA) CAPSULE PO SCH (07:34)
[2021-02-23] MEDS: ASPIRIN 81 MG CHEW (CHILDREN'S ASA) PO SCH (07:34)
[2021-02-23] MEDS: DOCUSATE SODIUM 100 MG (COLACE) CAP PO SCH ×2 (07:34→21:23)
[2021-02-23] MEDS: VITAMIN E 180 MG (400 UNITS) CAP PO SCH (07:34)
[2021-02-23] MEDS: NIACIN ER (NIASPAN) 500 MG TAB PO SCH ×2 (07:34→18:23)
[2021-02-23] MEDS: SENNA W/DOCUSATE (SENOKOT S) TABLET PO SCH ×2 (07:35→21:23)
[2021-02-23] MEDS: oxyCODONE ER 10 MG (OxyCONTIN CR) TAB PO SCH ×2 (07:35→21:23)
[2021-02-23] MEDS: VITAMIN D3 125 MCG (5,000 UNITS) CAPSULE PO SCH (07:35)
[2021-02-23] MEDS: DOXYCYCLINE 100 MG (VIBRAMYCIN) TABLET PO SCH ×2 (07:35→21:23)
[2021-02-23] MEDS: CLOPIDOGREL 75 MG (PLAVIX) TABLET PO SCH (07:35)
[2021-02-23] MEDS: RED YEAST RICE 600 MG PO SCH ×2 (07:35→18:24)
[2021-02-23] MEDS: MICONAZOLE 2% POWDER (DESENEX AF) 90 GM TOP SCH ×2 (07:36→21:24)
--- NOTE | 2021-02-23 07:45 | Occupational Ther Daily Note ---
OT Current Status-Daily Note Subjective Pt. alert in recliner. Pt. agrees to therapy. Pt. c/o pain or 12/12, nursing notified. Mental Status/Objective Patient Orientation: Person, Place, Time, Situation Attachments: Telemetry, Other-See Comments (TLSO) ADL-Treatment Pt. request to finish eating breakfast burrito. Pt. agrees to wash upper body and change shirt. Pt. declined LB cleansing and dressing. Pt takes increased time to complete tasks. Pt able to open containers and packages then uses regular utensils to eat. Pt. cleansed face and UE with wipes after set up. Pt. able to doff/don shirt after set up. Max A to don/doff TLSO. Pt. performed h air grooming tasks after set up. Therapy Code Descriptions/Definitions Functional [place] Measure: 0=Not Assessed/NA 4=Minimal Assistance 1=Total Assistance 5=Supervision or Setup 2=Maximal Assistance 6=Modified [place] 3=Moderate Assistance 7=Complete IndependenceSCALE: Activities may be completed with or without assistive devices. 1-Dkztndomtq-plvgicw completes the activity by him/herself with no assistance from a helper. 5-Set-up or Clean-up Assistance-helper sets up or cleans up; patient completes activity. [place] assists only prior to or following the activity. 4-Supervision or Touching Assistance-helper provides verbal cues and/or touchin g/steadying and/or contact guard assistance as patient completes activity. Assistance may be provided throughout the activity or intermittently. 3-Partial/Moderate Assistance-helper does LESS THAN HALF the effort. [place] lifts, holds or supports trunk or limbs, but provides less than half the effort. 2-Substantial/Maximal Assistance-helper does MORE THAN HALF the effort. [place] lifts or holds trunk or limbs and provides more than half the effort. 0-Ckzvdpnxn-xaxgjk does ALL the effort. Patient does none of the effort to complete the activity. Or, the assistance of 2 or more helpers is required for the patient to complete the activity. If activity was not attempted, code reason: 7-Patient Refused. 9-Not Applicable-not attempted and the patient did not perform the activity before the current illness, exacerbation or injury. 10-Not Attempted due to Environmental Limitations-(lack of equipment, weather restraints, etc.). 88-Not Attempted due to Medical Conditions or Safety Concerns. Eating (QC): 6 Bathing Location: L Arm, R Arm, Chest Upper Body Dressing (QC): 2 (Max A) Lower Body Dressing (QC): 7 On/Off Footwear: 2 Other Treatment Co-treat with PT ([id number]) 2 clinicians required to decrease fall risk, pain, and increase functional mobility. PT focusing on gait, dynamic standing balance, and transfers while OT focusing on ADLs, B UE strengthening, and functional mobility. Pt completed B UE strengthening tasks while standing to increase stamina, balance and B UE strength for daily functional tasks. Resistive clothes pins, nut/bolts, cones, color matching clothes pins were completed with B UE's in standing. After therapy, pt sitting in recliner with call light/phone in reach. All needs met in room. OT Short Term Goals Short Term Goals Eatin Oral hygiene: 4 Toileting hygiene: 4 Shower/bathe self: 3 Upper body dressin Lower body dressin Putting on/taking off footwear: 3 OT Store Receiving Clerk Goals Snf Goals Eating (QC): 6 Oral Hygiene (QC): 6 Toileting Hygiene (QC): 6 Shower/Bathe Self (QC): 4 Upper Body Dressing (QC): 4 Lower Body Dressing (QC): 5 On/Off Footwear (QC): 5 1=Demonstrate adherence to instructed precautions during ADL tasks. 2=Patient will verbalize/demonstrate understanding of assistive devices/modifications for ADL. 3=Patient will improve strength/tolerance for activity to enable patient to perform ADL's. OT Education/Plan Problem List/Assessment Assessment: Decreased Activ Tolerance, Decreased Safety Aware, Impaired Self- Care Skills, Restricted Funct UE ROM Discharge Recommendations Plan/Recommendations: Continue POC Treatment Plan/Plan of Care Patient would benefit from OT for education, treatment and training to promote independence in ADL's, mobility, safety and/or upper extremity function for ADL's. Plan of Care: ADL Retraining, Functional Mobility, Group Exercise/Act as Ind, Orthotic Fitting/Training, UE Funct Exercise/Act Treatment Duration: Mar 09, 2021 Frequency: At least 5 of 7 days/Wk (IRF) Estimated Hrs Per Day: 1.5 hours per day Agreement: Yes Rehab Potential: Fair Time/GCodes Start Time: 07:30 Stop Time: 09:00 Total Time Billed (hr/min): 90 Billed Treatment Time 1 visit( 90 min)- ADL 3 (45 min), Ex 3 (45 min) Co- Treat with PT ([id number]) HOMER FERNANDEZ Feb 23, 2021 07:45
[2021-02-23 08:00] VITALS: BP 134/61
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
--- NOTE | 2021-02-23 08:57 | Physical Therapy Daily Note ---
PT Daily Note-Current Subjective Patient in recliner pre tx, agrees to PT, has 5-6/10 pain in back and chest, 5/10 pain in right foot. Will be co-treating with OT due to poor patient mobility, strength, endurance, severe pain with activity, coordinate UE and LE during activity, safety and reduce risk of falls. Patient is now able to bear weight on right foot per Dr. Macias report. Appearance Patient in recliner post tx with nurse call, phone, tray, all needs met. Mental Status Patient Orientation: Person, Place, Situation TLSO Transfers SCALE: Activities may be completed with or without assistive devices. 0-Iqzcwlskus-cnhltha completes the activity by him/herself with no assistance from a helper. 5-Set-up or Clean-up Assistance-helper sets up or cleans up; patient completes activity. [place] assists only prior to or following the activity. 4-Supervision or Touching Assistance-helper provides verbal cues and/or touching/steadying and/or contact guard assistance as patient completes activity. Assistance may be provided throughout the activity or intermittently. 3-Partial/Moderate Assistance-helper does LESS THAN HALF the effort. [place] lifts, holds or supports trunk or limbs, but provides less than half the effort. 2-Substantial/Maximal Assistance-helper does MORE THAN HALF the effort. [place] lifts or holds trunk or limbs and provides more than half the effort. 3-Owffqqwwy-fluskj does ALL the effort. Patient does none of the effort to complete the activity. Or, the assistance of 2 or more helpers is required for the patient to complete the activity. If activity was not attempted, code reason: 7-Patient Refused. 9-Not Applicable-not attempted and the patient did not perform the activity before the current illness, exacerbation or injury. 10-Not Attempted due to Environmental Limitations-(lack of equipment, weather restraints, etc.). 88-Not Attempted due to Medical Conditions or Safety Concerns. Sit to Stand (QC): 4 Chair/Ucd-rs-Hzekc Xfer(QC): 4 Weight Bearing Right Lower Extremity: Right Non Weight Bearing Left Lower Extremity: Left Weight Bearing/Tolerated Gait Training Distance: 120'x2 Walk 10 feet (QC): 4 Walk 50 ft with 2 Turns(QC): 4 Gait Assistive Device: FWW slow but steady ambulation, antalgic, decreased step through on the left side Exercises several standing activities working on an UE activity simultaneously to strengthen back and legs Treatments PT worked on transfers, ambulation, standing, positioning and safety during a short bout of ADL's, OT worked on ADL's, UE activity Assessment Current Status: Fair Progress improved transfers and ambulation, less pain with activity PT Short Term Goals Short Term Goals Time Frame: Feb 23, 2021 Roll Left & Right: 3 Sit to lyin Lying to sitting on side of be: 3 Sit to stand: 4 Chair/vjc-ir-plgxv transfer: 4 Walk 10 feet: 4 Walk 50 feet with two turns: 4 Walk 150 feet: 4 PT Center Manager Goals Center Manager Goals PT Longterm Goals Time Frame: Mar 09, 2021 Roll Left & Right (QC): 6 Sit to Lying (QC): 6 Lying-Sitting on Side/Bed(QC): 6 Sit to Stand (QC): 6 Chair/Aso-ly-Ynqyi Xfer(QC): 6 Toilet Transfer (QC): 6 Car Transfer (QC): 6 Does the Patient Walk: Yes Walk 10 feet (QC): 6 Walk 50ft with 2 Turns (QC): 6 Walk 150 ft (QC): 6 Walking 10ft on Uneven Surface: 6 1 Step (curb) (QC): 4 4 Steps (QC): 4 12 Steps (QC): 88 Picking up an Object (QC): 88 Wheel 50 feet with 2 turns (QC: 9 Wheel 150 feet: 9 PT Plan Problem List Problem List: Activity Tolerance, Functional Strength, Safety, Balance, Gait, Transfer, Bed Mobility, ROM Treatment/Plan Treatment Plan: Continue Plan of Care Treatment Plan: Bed Mobility, Education, Functional Activity J Luis, Functional Strength, Group Therapy, Gait, Safety, Therapeutic Exercise, Transfers Treatment Duration: Mar 09, 2021 Frequency: At least 5 of 7 days/Wk (IRF) Estimated Hrs Per Day: 1.5 hours per day Patient and/or Family Agrees t: Yes Safety Risks/Education Patient Education: Gait Training, Transfer Techniques, Correct Positioning, Reviewed Don/Doff Brace, Safety Issues Teaching Recipient: Patient Teaching Methods: Demonstration, Discussion Response to Teaching: Reinforcement Needed Time/GCodes Time In: 0800 Time Out: 0900 Total Billed Treatment Time: 60 Total Billed Treatment 1 visit EX 30' FA 30' co-treated with OT for 60' JENNIFER DURON PT Feb 23, 2021 08:57
[2021-02-23] MEDS ORDERED: NS IV 1000 ML 1,000 ML IV ONE (09:30)
[2021-02-23] MEDS: polyethylene glycoL POWDER 17 GM (MIRALAX) PACK PO SCH (11:06)
[2021-02-23] MEDS: OMEGA 3 (FISH OIL) 1000 MG CAP PO SCH (11:06)
--- NOTE | 2021-02-23 11:45 | Physical Therapy Daily Note ---
PT Daily Note-Current Subjective Patient in recliner pre tx, agrees to PT, voices no complaints of pain at rest. Appearance Patient in recliner post tx with nurse call, phone, tray, all needs met. Mental Status Patient Orientation: Person, Place, Situation Attachments: IV Transfers SCALE: Activities may be completed with or without assistive devices. 0-Ympstyhlxt-kzoonrb completes the activity by him/herself with no assistance from a helper. 5-Set-up or Clean-up Assistance-helper sets up or cleans up; patient completes activity. [place] assists only prior to or following the activity. 4-Supervision or Touching Assistance-helper provides verbal cues and/or touching/steadying and/or contact guard assistance as patient completes activity. Assistance may be provided throughout the activity or intermittently. 3-Partial/Moderate Assistance-helper does LESS THAN HALF the effort. [place] lifts, holds or supports trunk or limbs, but provides less than half the effort. 2-Substantial/Maximal Assistance-helper does MORE THAN HALF the effort. [place] lifts or holds trunk or limbs and provides more than half the effort. 6-Evhwwbplp-txpohd does ALL the effort. Patient does none of the effort to complete the activity. Or, the assistance of 2 or more helpers is required for the patient to complete the activity. If activity was not attempted, code reason: 7-Patient Refused. 9-Not Applicable-not attempted and the patient did not perform the activity before the current illness, exacerbation or injury. 10-Not Attempted due to Environmental Limitations-(lack of equipment, weather restraints, etc.). 88-Not Attempted due to Medical Conditions or Safety Concerns. Weight Bearing Right Lower Extremity: Right Non Weight Bearing Left Lower Extremity: Left Weight Bearing/Tolerated Exercises Supine Ex: Ankle pumps, Quad Set, Glut sets, Heel Slides, Short Arc Quads, Straight leg raise, Hip abd/add Supine Reps: 20 (done in recliner with legs elevated) Seated Therapy Exercises: Long arc quads, Hip flexion Seated Reps: 20 Treatments BLE strengthening Assessment Current Status: Fair Progress improving BLE strength PT Short Term Goals Short Term Goals Time Frame: Feb 23, 2021 Roll Left & Right: 3 Sit to lyin Lying to sitting on side of be: 3 Sit to stand: 4 Chair/vea-cq-iariz transfer: 4 Walk 10 feet: 4 Walk 50 feet with two turns: 4 Walk 150 feet: 4 PT Stock Transfer Clerk Goals Senior Care Goals PT Senior Care Goals Time Frame: Mar 09, 2021 Roll Left & Right (QC): 6 Sit to Lying (QC): 6 Lying-Sitting on Side/Bed(QC): 6 Sit to Stand (QC): 6 Chair/Nlr-sm-Nbrxt Xfer(QC): 6 Toilet Transfer (QC): 6 Car Transfer (QC): 6 Does the Patient Walk: Yes Walk 10 feet (QC): 6 Walk 50ft with 2 Turns (QC): 6 Walk 150 ft (QC): 6 Walking 10ft on Uneven Surface: 6 1 Step (curb) (QC): 4 4 Steps (QC): 4 12 Steps (QC): 88 Picking up an Object (QC): 88 Wheel 50 feet with 2 turns (QC: 9 Wheel 150 feet: 9 PT Plan Problem List Problem List: Activity Tolerance, Functional Strength, Safety, Balance, Gait, Transfer, Bed Mobility, ROM Treatment/Plan Treatment Plan: Continue Plan of Care Treatment Plan: Bed Mobility, Education, Functional Activity J Luis, Functional Strength, Group Therapy, Gait, Safety, Therapeutic Exercise, Transfers Treatment Duration: Mar 09, 2021 Frequency: At least 5 of 7 days/Wk (IRF) Estimated Hrs Per Day: 1.5 hours per day Patient and/or Family Agrees t: Yes Safety Risks/Education Patient Education: Correct Positioning, Safety Issues Teaching Recipient: Patient Teaching Methods: Demonstration, Discussion Response to Teaching: Reinforcement Needed Time/GCodes Time In: 1120 Time Out: 1150 Total Billed Treatment Time: 30 Total Billed Treatment 1 visit EX 30' JENNIFER DURON PT Feb 23, 2021 11:45
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
[2021-02-23] MEDS: ENOXAPARIN 40 MG/0.4 ML (LOVENOX) SYR SC SCH (14:09)
[2021-02-23] MEDS ORDERED: RED600CA2 PO (15:40)
[2021-02-23] MEDS ORDERED: OMEP20TA7 PO (15:40)
[2021-02-23] MEDS ORDERED: ISOS30TA82 PO (15:47)
[2021-02-23 20:31] VITALS: BP 129/60
[2021-02-24] MEDS: CYANOCOBALAMIN 1,000 MCG (VITAMIN B-12) TABLET PO SCH (06:39)
[2021-02-24 06:57] LABS: POTASSIUM 4.2 MMOL/L (3.6-5.0)
[2021-02-24 06:58] LABS: CALCIUM 9.1 MG/DL (8.5-10.1)
[2021-02-24 07:02] LABS: CREATININE SERUM 1.78 MG/DL (0.60-1.30)
[2021-02-24 07:37] VITALS: BP 128/63
[2021-02-24] MEDS: DOCUSATE SODIUM 100 MG (COLACE) CAP PO SCH ×2 (08:09→20:02)
[2021-02-24] MEDS: VITAMIN D3 125 MCG (5,000 UNITS) CAPSULE PO SCH (08:09)
[2021-02-24] MEDS: SENNA W/DOCUSATE (SENOKOT S) TABLET PO SCH ×2 (08:09→20:02)
[2021-02-24] MEDS: ASPIRIN 81 MG CHEW (CHILDREN'S ASA) PO SCH (08:09)
[2021-02-24] MEDS: CLOPIDOGREL 75 MG (PLAVIX) TABLET PO SCH (08:10)
[2021-02-24] MEDS: VITAMIN E 180 MG (400 UNITS) CAP PO SCH (08:10)
[2021-02-24] MEDS: NIACIN ER (NIASPAN) 500 MG TAB PO SCH ×2 (08:10→17:18)
[2021-02-24] MEDS: DOXYCYCLINE 100 MG (VIBRAMYCIN) TABLET PO SCH ×2 (08:10→20:02)
[2021-02-24] MEDS: PANTOPRAZOLE 20 MG TABLET (PROTONIX) PO SCH (08:10)
[2021-02-24] MEDS: oxyCODONE ER 10 MG (OxyCONTIN CR) TAB PO SCH ×2 (08:11→20:02)
[2021-02-24] MEDS: RED YEAST RICE 600 MG PO SCH ×2 (08:12→17:18)
[2021-02-24] MEDS: polyethylene glycoL POWDER 17 GM (MIRALAX) PACK PO SCH (08:12)
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
--- NOTE | 2021-02-24 09:28 | Occupational Ther Daily Note ---
OT Current Status-Daily Note Subjective Pt reports pain as 8/10 at start of session. RN in room to administer meds. Appearance Pt left sitting in chair with physical therapy present. Mental Status/Objective Patient Orientation: Person, Place, Time, Situation Attachments: IV ADL-Treatment Therapy Code Descriptions/Definitions Functional Gem Measure: 0=Not Assessed/NA 4=Minimal Assistance 1=Total Assistance 5=Supervision or Setup 2=Maximal Assistance 6=Modified Gem 3=Moderate Assistance 7=Complete IndependenceSCALE: Activities may be completed with or without assistive devices. 5-Yqobrwtsxf-anzivlt completes the activity by him/herself with no assistance from a helper. 5-Set-up or Clean-up Assistance-helper sets up or cleans up; patient completes activity. [place] assists only prior to or following the activity. 4-Supervision or Touching Assistance-helper provides verbal cues and/or touching/steadying and/or contact guard assistance as patient completes activity. Assistance may be provided throughout the activity or intermittently. 3-Partial/Moderate Assistance-helper does LESS THAN HALF the effort. [place] lifts, holds or supports trunk or limbs, but provides less than half the effort. 2-Substantial/Maximal Assistance-helper does MORE THAN HALF the effort. [place] l ifts or holds trunk or limbs and provides more than half the effort. 7-Vsmmpmlqu-jcvywn does ALL the effort. Patient does none of the effort to complete the activity. Or, the assistance of 2 or more helpers is required for the patient to complete the activity. If activity was not attempted, code reason: 7-Patient Refused. 9-Not Applicable-not attempted and the patient did not perform the activity before the current illness, exacerbation or injury. 10-Not Attempted due to Environmental Limitations-(lack of equipment, weather restraints, etc.). 88-Not Attempted due to Medical Conditions or Safety Concerns. Eating (QC): 6 Upper Body Dressing (QC): 3 On/Off Footwear: 4 Toileting Hygiene (QC): 4 Toilet Transfer (QC): 4 Pt declines shower or changing clothes. Agreeable to practice donning/doffing brace. Task completed x2. Min a to position brace around back of torso with good effort demonstrated by patient. No twisting or bending observed. Pt able to fasten and tighten without assist. Attempt at donning shoes with [facility]. Pt pre sents with ke LE edema, shoes too tight at this time. Shoes doffed and non-slip socks donned with use of sock aid. No assist/cues for use of AE. Pt then ambulated to/from bathroom with use of walker and SBA. He performed toilet transfers until fatigue (x5) with goal to promote increased endurance/activity tolerance. Pt relies heavily on use of grab bar when lowering/standing but does not require any physical assist. Good body mechanics noted with all transfers. Other Treatment Co-treat with PT ([id number]) 2 clinicians required to decrease fall risk, pain, and increase functional mobility. PT focusing on gait, dynamic standing balance, and transfers while OT focusing on ADLs, B UE strengthening, body mechanics, adhering to spinal precautions and functional mobility. Pt completed B UE strengthening tasks while standing to increase stamina, balance and B UE stren gth for daily functional tasks. After initial education on rules of novel game, pt requires no assist on rule play or strategic game moves. Improved standing tolerance noted, only needing one sitting rest break. Pt then ambulated around room to retrieve beans bags from floor. He utilized gas welder apprentice and demonstrates good body mechanics with mini squats. Only 1 cue needed for preferred positioning of walker during activity. Education OT Patient Education: Correct positioning, Energy conservation, Modified ADL techniques, Progress toward Goal/Update tx plan, Purpose of tx/functional activities, Reviewed precautions, Rehab process, Safety issues, Transfer techniques, Use of adapted equipment Teaching Recipient: Patient Teaching Methods: Demonstration, Discussion Response to Teaching: Verbalize Understanding, Return Demonstration OT Short Term Goals Short Term Goals Eatin Oral hygiene: 4 Toileting hygiene: 4 Shower/bathe self: 3 Upper body dressin Lower body dressin Putting on/taking off footwear: 3 OT Woven Paper Hat Mender Goals Woven Paper Hat Mender Goals Eating (QC): 6 Oral Hygiene (QC): 6 Toileting Hygiene (QC): 6 Shower/Bathe Self (QC): 4 Upper Body Dressing (QC): 4 Lower Body Dressing (QC): 5 On/Off Footwear (QC): 5 1=Demonstrate adherence to instructed precautions during ADL tasks. 2=Patient will verbalize/demonstrate understanding of assistive devices/modifications for ADL. 3=Patient will improve strength/tolerance for activity to enable patient to p erform ADL's. OT Education/Plan Problem List/Assessment Assessment: Decreased Activ Tolerance, Decreased Safety Aware, Decreased UE Strength, Impaired Funct Balance, Impaired I ADL's, Impaired Self-Care Skills, Restricted Funct UE ROM Discharge Recommendations Plan/Recommendations: Continue POC Equpiment Recommendations-D/C: Commercial Property Manager, Sock Aide Treatment Plan/Plan of Care Treatment,Training & Education: Yes Patient would benefit from OT for education, treatment and training to promote independence in ADL's, mobility, safety and/or upper extremity function for ADL's. Plan of Care: ADL Retraining, Functional Mobility, Group Exercise/Act as Ind, Orthotic Fitting/Training, UE Funct Exercise/Act Treatment Duration: Mar 09, 2021 Frequency: At least 5 of 7 days/Wk (IRF) Estimated Hrs Per Day: 1.5 hours per day Agreement: Yes Rehab Potential: Fair Time/GCodes Start Time: 07:55 Stop Time: 09:25 Total Time Billed (hr/min): 90 Billed Treatment Time 1 visit, ADL x 3 (45 min), FA x3 (45 min), Co-treat with physical therapy from [id number] Lo Riley OT Feb 24, 2021 09:28
--- NOTE | 2021-02-24 09:48 | Physical Therapy Daily Note ---
PT Daily Note-Current Subjective Pt agrees to PT/OT partial co-treat. Pain Numeric Pain Scale: 8 Location: Upper Location Body Site: Back Pain Description: Ache Mental Status Patient Orientation: Person, Place, Situation Attachments: Other-See Comments (TLSO Brace) Transfers SCALE: Activities may be completed with or without assistive devices. 8-Jmdtkbdxme-lvqhcpa completes the activity by him/herself with no assistance from a helper. 5-Set-up or Clean-up Assistance-helper sets up or cleans up; patient completes activity. [place] assists only prior to or following the activity. 4-Supervision or Touching Assistance-helper provides verbal cues and/or touching/steadying and/or contact guard assistance as patient completes activity. Assistance may be provided throughout the activity or intermittently. 3-Partial/Moderate Assistance-helper does LESS THAN HALF the effort. [place] lifts, holds or supports trunk or limbs, but provides less than half the effort. 2-Substantial/Maximal Assistance-helper does MORE THAN HALF the effort. [place] lifts or holds trunk or limbs and provides more than half the effort. 7-Dwxpuucyy-bdczuj does ALL the effort. Patient does none of the effort to complete the activity. Or, the assistance of 2 or more helpers is required for the patient to complete the activity. If activity was not attempted, code reason: 7-Patient Refused. 9-Not Applicable-not attempted and the patient did not perform the activity before the current illness, exacerbation or injury. 10-Not Attempted due to Environmental Limitations-(lack of equipment, weather restraints, etc.). 88-Not Attempted due to Medical Conditions or Safety Concerns. Sit to Stand (QC): 5 Weight Bearing Right Lower Extremity: Right Non Weight Bearing Left Lower Extremity: Left Weight Bearing/Tolerated Gait Training Does the Patient Walk?: Yes Distance: 225', 100' Walk 10 feet (QC): 5 Walk 50 ft with 2 Turns(QC): 5 Walk 150 ft (QC): 5 Gait Persons Needed: 1 Gait Assistive Device: FWW Exercises Supine Ex: Ankle pumps, Quad Set, Glut sets, Heel Slides, Hip abd/add Supine Reps: 15 Treatments Co-treat with PT ([id number]) 2 clinicians required to decrease fall risk, pain, and increase functional mobility. PT focusing on gait, dynamic standing balance, and transfers while OT focusing on ADLs, B UE strengthening, body mechanics, adhering to spinal precautions and functional mobility. Pt completed B UE strengthening tasks while standing to increase stamina, balance and B UE strength for daily functional tasks. After initial education on rules of novel game, pt requires no assist on rule play or strategic game moves. Improved standing tolerance noted, only needing one sitting rest break. Pt then ambulated around room to retrieve beans bags from floor. He utilized core layer machine operator and demonstrates good body mechanics with mini squats. Only 1 cue needed for preferred positioning of walker during activity. [id number]: Pt amb. in hallway back to room, resting in recliner. Pt completes a few Supine Ex before fatiguing and resting. All needs met, call light in hand. Assessment Current Status: Good Progress Pt is fatigued by end of tx. Pt is gaining strength and mobility w/change of WB status. PT Short Term Goals Short Term Goals Time Frame: Feb 23, 2021 Roll Left & Right: 3 Sit to lyin Lying to sitting on side of be: 3 Sit to stand: 4 Chair/usu-wc-pktzb transfer: 4 Walk 10 feet: 4 Walk 50 feet with two turns: 4 Walk 150 feet: 4 PT Battery Parts Assembler Goals Battery Parts Assembler Goals PT [facility] Goals Time Frame: Mar 09, 2021 Roll Left & Right (QC): 6 Sit to Lying (QC): 6 Lying-Sitting on Side/Bed(QC): 6 Sit to Stand (QC): 6 Chair/Pqr-yk-Otskd Xfer(QC): 6 Toilet Transfer (QC): 6 Car Transfer (QC): 6 Does the Patient Walk: Yes Walk 10 feet (QC): 6 Walk 50ft with 2 Turns (QC): 6 Walk 150 ft (QC): 6 Walking 10ft on Uneven Surface: 6 1 Step (curb) (QC): 4 4 Steps (QC): 4 12 Steps (QC): 88 Picking up an Object (QC): 88 Wheel 50 feet with 2 turns (QC: 9 Wheel 150 feet: 9 PT Plan Problem List Problem List: Activity Tolerance Treatment/Plan Treatment Plan: Continue Plan of Care Treatment Plan: Bed Mobility, Education, Functional Activity J Luis, Functional Strength, Group Therapy, Gait, Safety, Therapeutic Exercise, Transfers Treatment Duration: Mar 09, 2021 Frequency: At least 5 of 7 days/Wk (IRF) Estimated Hrs Per Day: 1.5 hours per day Patient and/or Family Agrees t: Yes Safety Risks/Education Patient Education: Gait Training, Correct Positioning, Reviewed Don/Doff Brace Teaching Recipient: Patient Teaching Methods: Discussion Response to Teaching: Verbalize Understanding Time/GCodes Time In: 845 Time Out: 945 Total Billed Treatment Time: 60 Total Billed Treatment Co-treat w/OT for 40m ([id number]) 1, GT (15m), FA (30m) & EX (15m) ANJU LOWRY SPRING ENCASER Feb 24, 2021 09:48
[2021-02-24] MEDS: MICONAZOLE 2% POWDER (DESENEX AF) 90 GM TOP SCH ×2 (10:06→20:03)
[2021-02-24] MEDS: OMEGA 3 (FISH OIL) 1000 MG CAP PO SCH (11:43)
--- NOTE | 2021-02-24 12:10 | Physical Therapy Daily Note ---
PT Daily Note-Current Subjective Pt sitting up in recliner visiting with daughter upon arrival. Pt agrees to PT. Nurse gives Fish Oil med during tx. Pain Numeric Pain Scale: 5-Moderate Pain Location: Upper Location Body Site: Back Pain Description: Ache Mental Status Patient Orientation: Person, Place, Time, Situation Transfers SCALE: Activities may be completed with or without assistive devices. 5-Chufglhvll-mpnghoq completes the activity by him/herself with no assistance from a helper. 5-Set-up or Clean-up Assistance-helper sets up or cleans up; patient completes activity. [place] assists only prior to or following the activity. 4-Supervision or Touching Assistance-helper provides verbal cues and/or touching/steadying and/or contact guard assistance as patient completes activity. Assistance may be provided throughout the activity or intermittently. 3-Partial/Moderate Assistance-helper does LESS THAN HALF the effort. [place] lifts, holds or supports trunk or limbs, but provides less than half the effort. 2-Substantial/Maximal Assistance-helper does MORE THAN HALF the effort. [place] lifts or holds trunk or limbs and provides more than half the effort. 9-Resrmdqyo-mztiui does ALL the effort. Patient does none of the effort to complete the activity. Or, the assistance of 2 or more helpers is required for the patient to complete the activity. If activity was not attempted, code reason: 7-Patient Refused. 9-Not Applicable-not attempted and the patient did not perform the activity before the current illness, exacerbation or injury. 10-Not Attempted due to Environmental Limitations-(lack of equipment, weather restraints, etc.). 88-Not Attempted due to Medical Conditions or Safety Concerns. Weight Bearing Right Lower Extremity: Right Non Weight Bearing Left Lower Extremity: Left Weight Bearing/Tolerated Exercises Supine Ex: Ankle pumps, Quad Set, Heel Slides, Hip abd/add Supine Reps: 15 Treatments Pt completes Supine EX. Pt, daughter & BOOK SEWING MACHINE OPERATOR discuss Cardiologists visit and change in medicine, swelling and AE needed for home. Pt resting and awaiting lunch at end of tx. All needs met, call light in hand. Assessment Current Status: Good Progress Pt still fatigued at end of tx but able to complete more before fatiguing. PT Short Term Goals Short Term Goals Time Frame: Feb 23, 2021 Roll Left & Right: 3 Sit to lyin Lying to sitting on side of be: 3 Sit to stand: 4 Chair/lvq-ck-wmpyr transfer: 4 Walk 10 feet: 4 Walk 50 feet with two turns: 4 Walk 150 feet: 4 PT Fpc Goals Fpc Goals PT Yoker Goals Time Frame: Mar 09, 2021 Roll Left & Right (QC): 6 Sit to Lying (QC): 6 Lying-Sitting on Side/Bed(QC): 6 Sit to Stand (QC): 6 Chair/Qjg-ck-Rwoeg Xfer(QC): 6 Toilet Transfer (QC): 6 Car Transfer (QC): 6 Does the Patient Walk: Yes Walk 10 feet (QC): 6 Walk 50ft with 2 Turns (QC): 6 Walk 150 ft (QC): 6 Walking 10ft on Uneven Surface: 6 1 Step (curb) (QC): 4 4 Steps (QC): 4 12 Steps (QC): 88 Picking up an Object (QC): 88 Wheel 50 feet with 2 turns (QC: 9 Wheel 150 feet: 9 PT Plan Problem List Problem List: Activity Tolerance Treatment/Plan Treatment Plan: Continue Plan of Care Treatment Plan: Bed Mobility, Education, Functional Activity J Luis, Functional Strength, Group Therapy, Gait, Safety, Therapeutic Exercise, Transfers Treatment Duration: Mar 09, 2021 Frequency: At least 5 of 7 days/Wk (IRF) Estimated Hrs Per Day: 1.5 hours per day Patient and/or Family Agrees t: Yes Time/GCodes Time In: 1130 Time Out: 1200 Total Billed Treatment Time: 30 Total Billed Treatment 1, EX (15m) & FA (15m) ANJU LOWRY PTA Feb 24, 2021 12:10
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
[2021-02-24] MEDS: ENOXAPARIN 40 MG/0.4 ML (LOVENOX) SYR SC SCH (13:47)
[2021-02-24] MEDS ORDERED: CATHETER FLUSH 10 ML SYR IV PRN (14:00)
[2021-02-24] MEDS: CATHETER FLUSH 10 ML SYR IV SCH ×2 (14:43→20:03)
[2021-02-24 20:00] VITALS: BP 127/65
[2021-02-25] MEDS: CYANOCOBALAMIN 1,000 MCG (VITAMIN B-12) TABLET PO SCH (05:53)
[2021-02-25] MEDS: CATHETER FLUSH 10 ML SYR IV SCH (05:54)
[2021-02-25 06:31] LABS: POTASSIUM 4.1 MMOL/L (3.6-5.0)
[2021-02-25 06:32] LABS: CALCIUM 9.4 MG/DL (8.5-10.1)
[2021-02-25 06:36] LABS: CREATININE SERUM 1.82 MG/DL (0.60-1.30)
[2021-02-25 07:37] VITALS: BP 117/56
[2021-02-25] MEDS: NIACIN ER (NIASPAN) 500 MG TAB PO SCH ×2 (07:54→17:24)
[2021-02-25] MEDS: PANTOPRAZOLE 20 MG TABLET (PROTONIX) PO SCH (07:54)
[2021-02-25] MEDS: VITAMIN E 180 MG (400 UNITS) CAP PO SCH (07:54)
[2021-02-25] MEDS: CLOPIDOGREL 75 MG (PLAVIX) TABLET PO SCH (07:54)
[2021-02-25] MEDS: DOXYCYCLINE 100 MG (VIBRAMYCIN) TABLET PO SCH ×2 (07:54→20:21)
[2021-02-25] MEDS: polyethylene glycoL POWDER 17 GM (MIRALAX) PACK PO SCH (07:54)
[2021-02-25] MEDS: VITAMIN D3 125 MCG (5,000 UNITS) CAPSULE PO SCH (07:54)
[2021-02-25] MEDS: SENNA W/DOCUSATE (SENOKOT S) TABLET PO SCH ×2 (07:54→20:21)
[2021-02-25] MEDS: ASPIRIN 81 MG CHEW (CHILDREN'S ASA) PO SCH (07:54)
[2021-02-25] MEDS: RED YEAST RICE 600 MG PO SCH ×2 (07:55→17:24)
[2021-02-25] MEDS: DOCUSATE SODIUM 100 MG (COLACE) CAP PO SCH ×2 (07:56→20:21)
[2021-02-25] MEDS: oxyCODONE ER 10 MG (OxyCONTIN CR) TAB PO SCH ×2 (07:57→20:22)
[2021-02-25] MEDS: MICONAZOLE 2% POWDER (DESENEX AF) 90 GM TOP SCH ×2 (08:02→20:22)
--- NOTE | 2021-02-25 09:26 | Occupational Ther Daily Note ---
OT Current Status-Daily Note Subjective Pt reports 7/10 pain in back and chest. RN present, meds given. Mental Status/Objective Patient Orientation: Person, Place, Time, Situation Attachments: IV ADL-Treatment Therapy Code Descriptions/Definitions Functional [place] Measure: 0=Not Assessed/NA 4=Minimal Assistance 1=Total Assistance 5=Supervision or Setup 2=Maximal Assistance 6=Modified [place] 3=Moderate Assistance 7=Complete IndependenceSCALE: Activities may be completed with or without assistive devices. 2-Igxszvggdn-cptdhri completes the activity by him/herself with no assistance from a helper. 5-Set-up or Clean-up Assistance-helper sets up or cleans up; patient completes a ctivity. [place] assists only prior to or following the activity. 4-Supervision or Touching Assistance-helper provides verbal cues and/or touching/steadying and/or contact guard assistance as patient completes activity. Assistance may be provided throughout the activity or intermittently. 3-Partial/Moderate Assistance-helper does LESS THAN HALF the effort. [place] lifts, holds or supports trunk or limbs, but provides less than half the effort. 2-Substantial/Maximal Assistance-helper does MORE THAN HALF the effort. [place] lifts or holds trunk or limbs and provides more than half the effort. 3-Rkqjbpnuf-ucdaom does ALL the effort. Patient does none of the effort to complete the activity. Or, the assistance of 2 or more helpers is required for the patient to complete the activity. If activity was not attempted, code reason: 7-Patient Refused. 9-Not Applicable-not attempted and the patient did not perform the activity before the current illness, exacerbation or injury. 10-Not Attempted due to Environmental Limitations-(lack of equipment, weather restraints, etc.). 88-Not Attempted due to Medical Conditions or Safety Concerns. Oral Hygiene (QC): 4 Bathing Location: L Arm, R Arm, L Upper Leg, R Upper Leg, L Lower Leg (including foot), R Lower Leg (including foot), Chest, Abdomen, Buttocks, Perineal Area Shower/Bathe Self (QC): 4 Upper Body Dressing (QC): 3 Lower Body Dressing (QC): 4 On/Off Footwear: 5 Toileting Hygiene (QC): 4 Toilet Transfer (QC): 4 Shower performed; 100% completed in sitting. Pt able to wash buttocks with lateral pelvic leans. Demonstrates good body mechanics. LHS utilized to wash below knees. No assist needed to reach/wash body parts. When drying body, pt attempts to stand to dry buttocks. Requires education on remaining seated until brace donned. Poor insight into safety as he verbalizes "well other staff have let me stand up without my brace." OT educated pt on reasoning for wearing brace in standing, especially when in wet shower. Pt will need reinforcement. Clothing donned seated on shower bench. Min a needed to bring TLSO brace behind torso, pt able to complete all remaining steps. Pt attempted to thread BLE's into pants without AE, but demonstrates increased difficulty. Cues for problem solving through task. With outpatient surgery rn, pt able to perform all steps without assist and exhibits less effort with task. He stood with close sup to assembler for puller over hand hips. Socks donned with use of sock aid, good recall on sequencing steps. He stood at sink for grooming tasks, sup for safety only. Other Treatment co treat with PT ([id number]). 2 clinicians required to decrease fall risk, pain, and increase overall endurance and functional mobility. PT focusing on gait, LB strengthening and balance while OT focused on ADLs, B UE strengthening, and safety. Pt Performed B UE exercises with use of red theraband. Requires cues to continue through task as pt is very talkative this session; easily distracted. 15 reps x2, rest breaks needed after each set. Exercises modified to perform within pain free range. Education OT Patient Education: Correct positioning, Energy conservation, Exercise program, Modified ADL techniques, Progress toward Goal/Update tx plan, Purpose of tx/functional activities, Reviewed precautions, Rehab process, Safety issues, Use of adapted equipment Teaching Recipient: Patient Teaching Methods: Demonstration, Discussion Response to Teaching: Verbalize Understanding, Reinforcement Needed OT Short Term Goals Short Term Goals Eatin Oral hygiene: 4 Toileting hygiene: 4 Shower/bathe self: 3 Upper body dressin Lower body dressin Putting on/taking off footwear: 3 OT Retirement Goals Order Checker Packer Processer Goals Eating (QC): 6 Oral Hygiene (QC): 6 Toileting Hygiene (QC): 6 Shower/Bathe Self (QC): 4 Upper Body Dressing (QC): 4 Lower Body Dressing (QC): 5 On/Off Footwear (QC): 5 1=Demonstrate adherence to instructed precautions during ADL tasks. 2=Patient will verbalize/demonstrate understanding of assistive devices/modifications for ADL. 3=Patient will improve strength/tolerance for activity to enable patient to perform ADL's. OT Education/Plan Problem List/Assessment Assessment: Decreased Activ Tolerance, Decreased Safety Aware, Decreased UE Strength, Impaired Funct Balance, Impaired I ADL's, Impaired Self-Care Skills Discharge Recommendations Plan/Recommendations: Continue POC Treatment Plan/Plan of Care Treatment,Training & Education: Yes Patient would benefit from OT for education, treatment and training to promote independence in ADL's, mobility, safety and/or upper extremity function for ADL's. Plan of Care: ADL Retraining, Functional Mobility, Group Exercise/Act as Ind, Orthotic Fitting/Training, UE Funct Exercise/Act Treatment Duration: Mar 09, 2021 Frequency: At least 5 of 7 days/Wk (IRF) Estimated Hrs Per Day: 1.5 hours per day Agreement: Yes Rehab Potential: Fair Time/GCodes Start Time: 07:48 Stop Time: 09:18 Total Time Billed (hr/min): 90 Billed Treatment Time 1 visit, ADL x4, EX x2 Co-treat with PT ([id number]) Lo Riley OT Feb 25, 2021 09:26
--- NOTE | 2021-02-25 11:05 | Physical Therapy Daily Note ---
PT Daily Note-Current Subjective Pt sitting up in recliner upon arrival. Pt agrees to PT. Mental Status Patient Orientation: Person, Place, Time, Situation Attachments: Other-See Comments (TLSO Brace) Transfers SCALE: Activities may be completed with or without assistive devices. 3-Wazefgdqsm-nwyjagh completes the activity by him/herself with no assistance from a helper. 5-Set-up or Clean-up Assistance-helper sets up or cleans up; patient completes activity. [place] assists only prior to or following the activity. 4-Supervision or Touching Assistance-helper provides verbal cues and/or touching/steadying and/or contact guard assistance as patient completes activity. Assistance may be provided throughout the activity or intermittently. 3-Partial/Moderate Assistance-helper does LESS THAN HALF the effort. [place] lifts, holds or supports trunk or limbs, but provides less than half the effort. 2-Substantial/Maximal Assistance-helper does MORE THAN HALF the effort. [place] lifts or holds trunk or limbs and provides more than half the effort. 6-Odpaxwweo-vruxtd does ALL the effort. Patient does none of the effort to complete the activity. Or, the assistance of 2 or more helpers is required for the patient to complete the activity. If activity was not attempted, code reason: 7-Patient Refused. 9-Not Applicable-not attempted and the patient did not perform the activity before the current illness, exacerbation or injury. 10-Not Attempted due to Environmental Limitations-(lack of equipment, weather restraints, etc.). 88-Not Attempted due to Medical Conditions or Safety Concerns. Sit to Stand (QC): 5 Weight Bearing Right Lower Extremity: Right Weight Bearing/Tolerated Left Lower Extremity: Left Weight Bearing/Tolerated Gait Training Does the Patient Walk?: Yes Distance: 200' Walk 10 feet (QC): 5 Walk 50 ft with 2 Turns(QC): 5 Walk 150 ft (QC): 5 Gait Persons Needed: 1 Gait Assistive Device: FWW Wheelchair Training Does the Pt Use a Wheelchair?: No Exercises Supine Ex: Ankle pumps, Quad Set, Glut sets, Heel Slides, Short Arc Quads, Straight leg raise, Hip abd/add Supine Reps: 15 Seated Therapy Exercises: Ankle pumps, Long arc quads, Hip flexion, Hip abd/add Seated Reps: 15 Treatments 900-1000: Pt completes Supine & Seated EX with a couple RB as needed. TF to standing, declines need for BR and amb. in hallway. Pt returns to room at end of tx to rest in recliner with feet elevated on pillow. All needs met, call light in hand. [id number]: Pt is resting in recliner, declines need for BR. Pt & daughter discussing progress and need for ordering Hip kit online. COMMUNICATIONS REPRESENTATIVE gives input and assists with finding options for Hip kit. Pt resting in recliner with all needs met, call light in hand. Assessment Current Status: Good Progress Pt is improving with mobility since upgrade in WB status (Pt is now WBAT as of Monday). Pt is improving with independence of tasks as well. PT Short Term Goals Short Term Goals Time Frame: Feb 23, 2021 Roll Left & Right: 3 Sit to lyin Lying to sitting on side of be: 3 Sit to stand: 4 Chair/jio-rg-psxtl transfer: 4 Walk 10 feet: 4 Walk 50 feet with two turns: 4 Walk 150 feet: 4 PT Skilled Nursing Goals [id number] Developer Goals PT Skilled Nursing Goals Time Frame: Mar 09, 2021 Roll Left & Right (QC): 6 Sit to Lying (QC): 6 Lying-Sitting on Side/Bed(QC): 6 Sit to Stand (QC): 6 Chair/Jcw-iw-Ajoqq Xfer(QC): 6 Toilet Transfer (QC): 6 Car Transfer (QC): 6 Does the Patient Walk: Yes Walk 10 feet (QC): 6 Walk 50ft with 2 Turns (QC): 6 Walk 150 ft (QC): 6 Walking 10ft on Uneven Surface: 6 1 Step (curb) (QC): 4 4 Steps (QC): 4 12 Steps (QC): 88 Picking up an Object (QC): 88 Wheel 50 feet with 2 turns (QC: 9 Wheel 150 feet: 9 PT Plan Problem List Problem List: Activity Tolerance Treatment/Plan Treatment Plan: Continue Plan of Care Treatment Plan: Bed Mobility, Education, Functional Activity J Luis, Functional Strength, Group Therapy, Gait, Safety, Therapeutic Exercise, Transfers Treatment Duration: Mar 09, 2021 Frequency: At least 5 of 7 days/Wk (IRF) Estimated Hrs Per Day: 1.5 hours per day Patient and/or Family Agrees t: Yes Safety Risks/Education Patient Education: Correct Positioning, Safety Issues Teaching Recipient: Patient Teaching Methods: Discussion Response to Teaching: Verbalize Understanding Time/GCodes Time In: 900 Time Out: 1000 Total Billed Treatment Time: 60 Total Billed Treatment 900-1000: 1, GT (20m), EX x2 (25m) & FA (15m) [id number]: 1, FA (20m) ANJU LOWRY COMMUNICATIONS REPRESENTATIVE Feb 25, 2021 11:05
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
[2021-02-25] MEDS: ENOXAPARIN 40 MG/0.4 ML (LOVENOX) SYR SC SCH (13:13)
[2021-02-25] MEDS: OMEGA 3 (FISH OIL) 1000 MG CAP PO SCH (13:13)
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
--- NOTE | 2021-02-25 17:12 | Cardiology Progress Note ---
Progress Note-Cardiology Events since last exam Date Seen by Provider: Feb 25, 2021 Time Seen by Provider: 17:07 Events since last exam I am following him for heart failure, hypertension and history of coronary a rtery disease. He feels as though his ankle edema is improving. He continues to have less chest pain and this makes his breathing easier. He denies palpitations or syncope. Certain portions of this document may have been dictated utilizing voice recognition technology. Inherent to this technology, typographical and grammatical errors may exist. As much as I am diligent to identify and correct these mistakes, some errors may remain in the document. Vitals Last set of Vitals Signs Vital Signs 02/25/21 02/25/21 07:37 09:00 Temp 36.6 Pulse 31 Resp 18 B/P (MAP) 117/56 (76) Pulse Ox 97 O2 Delivery Room Air Labs Labs Laboratory Tests 02/25/21 05:49 Exam Vital Signs Vital Signs Date Time Temp Pulse Resp B/P (MAP) Pulse Ox O2 Delivery O2 Flow Rate FiO2 02/25/21 09:00 Room Air 02/25/21 07:37 36.6 31 18 117/56 (76) 97 Physical Exam General: Alert. No acute distress. He is obese. Eye: No xanthelasma. HENT: Normocephalic. Neck: Jugular venous pressure does not appear elevated. Respiratory: Lungs are clear to auscultation. Respirations are non-labored. Breath sounds are equal. Symmetrical chest wall expansion. Cardiovascular: Normal rate. Regular rhythm. 2/6 systolic ejection murmur. No gallop. 1+ bilateral pretibial edema. Gastrointestinal: Soft. Normal bowel sounds. Skin: Warm. Dry. Neurologic: Alert and oriented to person, place, time. Cranial nerves 3-11 grossly intact. Psychiatric: Cooperative. Appropriate mood & affect. Labs Laboratory Tests Test 02/25/21 05:49 Range/Units Sodium Level 137 135-145 MMOL/L Potassium Level 4.1 3.6-5.0 MMOL/L Chloride Level 102 98-107 MMOL/L Carbon Dioxide Level 23 21-32 MMOL/L Anion Gap 12 5-14 MMOL/L Blood Urea Nitrogen 24 H 7-18 MG/DL Creatinine 1.82 H 0.60-1.30 MG/DL Estimat Glomerular Filtration Rate 36 BUN/Creatinine Ratio 13 Glucose Level 110 H 70-105 MG/DL Calcium Level 9.4 8.5-10.1 MG/DL Diagnosis/Problems Diagnosis/Problems (1) Acute on chronic systolic heart failure Assessment & Plan: He may have a mild degree of heart failure. I recommend we continue metoprolol succinate. His creatinine has now stabilized around 1.8. I will resume furosemide tomorrow but at a lower dose than he was taking at home. Rather than prescribing it as needed, I will just order 40 mg daily. We will need to follow his creatinine level closely. (2) Primary hypertension Assessment & Plan: Blood pressures had been elevated when he was first [facility]. These have now improved with metoprolol. (3) Coronary artery disease without angina pectoris Assessment & Plan: He is not having any overt angina at this point in time. I suspect the majority of his chest discomfort is related to the sternal and th oracic vertebral fractures and is not angina. He has multiple coronary stents. Continue aspirin, clopidogrel, beta-aurea, niacin, and red yeast rice. (4) Cardiomyopathy Status: Resolved Assessment & Plan: He has mild left ventricular systolic dysfunction on an echocardiogram obtained during this admission. I placed him on metoprolol succinate which he seems to be tolerating. No OSMAR or ARB due to poor renal function. (5) Aortic stenosis Assessment & Plan: He has moderate aortic stenosis as noted on his echocardiogram from earlier during this admission. He does not recall any c ardiologist telling him of this diagnosis in the past. This should not be causing symptoms at this degree but will need to be followed longitudinally by his regular outside technologist infectious disease after discharge. (6) Ventricular tachycardia Assessment & Plan: From his description, it sounds as though he has a history of ventricular tachycardia or perhaps just frequent premature ventricular complexes. He did show me a rhythm strip from [place] that showed ventricular trigeminy. His lay out former in [place] had advised ablation but he was in the process of moving to [place]. He has now been in touch with an lay out former in [place] and is trying to arrange an outpatient consultation to follow-up on the ventricular arrhythmias. Although there is a report that he had a history of atrial fibrillation, he was not aware of any previous history of atrial fibrillation and he was not taking an oral anticoagulant at home, just dual antiplatelet therapy. (7) Mixed hyperlipidemia Assessment & Plan: According to the patient, his director of consumer marketing had advised him to stop fenofibrate which he did. He has been taking red yeast rice and niacin for his cholesterol. His LDL level was under good control without a statin. I recommend he continue red yeast rice and niacin. I will discontinue the fenofibrate. (8) Chronic kidney disease, stage 3 Assessment & Plan: He did not report any previous history of kidney disease. As above, I will hold the furosemide and give him a small IV fluid bolus today. Continue to follow daily creatinine for the time being. (9) Obesity Assessment & Plan: He will ultimately need to work on weight loss. SUNSHINE VALLEJO JR, MD Feb 25, 2021 17:12
[2021-02-25 20:00] VITALS: BP 124/63
[2021-02-26] MEDS: CYANOCOBALAMIN 1,000 MCG (VITAMIN B-12) TABLET PO SCH (05:43)
[2021-02-26 06:30] LABS: POTASSIUM 4.2 MMOL/L (3.6-5.0)
[2021-02-26 06:31] LABS: CALCIUM 9.5 MG/DL (8.5-10.1)
[2021-02-26 06:35] LABS: CREATININE SERUM 1.8 MG/DL (0.60-1.30)
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
[2021-02-26 07:41] VITALS: BP 133/66
[2021-02-26] MEDS: VITAMIN E 180 MG (400 UNITS) CAP PO SCH (09:15)
[2021-02-26] MEDS: PANTOPRAZOLE 20 MG TABLET (PROTONIX) PO SCH (09:15)
[2021-02-26] MEDS: SENNA W/DOCUSATE (SENOKOT S) TABLET PO SCH ×2 (09:15→21:14)
[2021-02-26] MEDS: NIACIN ER (NIASPAN) 500 MG TAB PO SCH ×2 (09:15→17:12)
[2021-02-26] MEDS: VITAMIN D3 125 MCG (5,000 UNITS) CAPSULE PO SCH (09:15)
[2021-02-26] MEDS: ASPIRIN 81 MG CHEW (CHILDREN'S ASA) PO SCH (09:15)
[2021-02-26] MEDS: DOCUSATE SODIUM 100 MG (COLACE) CAP PO SCH ×2 (09:15→21:14)
[2021-02-26] MEDS: CLOPIDOGREL 75 MG (PLAVIX) TABLET PO SCH (09:15)
[2021-02-26] MEDS: DOXYCYCLINE 100 MG (VIBRAMYCIN) TABLET PO SCH (09:17)
[2021-02-26] MEDS: oxyCODONE ER 10 MG (OxyCONTIN CR) TAB PO SCH ×2 (09:17→21:14)
[2021-02-26] MEDS: FUROSEMIDE 40 MG (LASIX) TAB PO SCH (09:18)
[2021-02-26] MEDS: polyethylene glycoL POWDER 17 GM (MIRALAX) PACK PO SCH (09:18)
[2021-02-26] MEDS: RED YEAST RICE 600 MG PO SCH ×2 (09:18→17:12)
--- NOTE | 2021-02-26 09:18 | Occupational Ther Daily Note ---
OT Current Status-Daily Note Subjective Pt reports pain in chest/back as 7/10. meds given prior to OT arrival. Appearance Pt left sitting in chair, all needs within reach at ot departure. Mental Status/Objective Patient Orientation: Person, Place, Time, Situation Attachments: IV ADL-Treatment Therapy Code Descriptions/Definitions Functional [place] Measure: 0=Not Assessed/NA 4=Minimal Assistance 1=Total Assistance 5=Supervision or Setup 2=Maximal Assistance 6=Modified [place] 3=Moderate Assistance 7=Complete IndependenceSCALE: Activities may be completed with or without assistive devices. 3-Zzbwirjzxq-qikapsj completes the activity by him/herself with no assistance from a helper. 5-Set-up or Clean-up Assistance-helper sets up or cleans up; patient completes activity. [place] assists only prior to or following the activity. 4-Supervision or Touching Assistance-helper provides verbal cues and/or touchin g/steadying and/or contact guard assistance as patient completes activity. Assistance may be provided throughout the activity or intermittently. 3-Partial/Moderate Assistance-helper does LESS THAN HALF the effort. [place] lifts, holds or supports trunk or limbs, but provides less than half the effort. 2-Substantial/Maximal Assistance-helper does MORE THAN HALF the effort. [place] lifts or holds trunk or limbs and provides more than half the effort. 4-Usgabgmfx-ullyin does ALL the effort. Patient does none of the effort to complete the activity. Or, the assistance of 2 or more helpers is required for the patient to complete the activity. If activity was not attempted, code reason: 7-Patient Refused. 9-Not Applicable-not attempted and the patient did not perform the activity before the current illness, exacerbation or injury. 10-Not Attempted due to Environmental Limitations-(lack of equipment, weather restraints, etc.). 88-Not Attempted due to Medical Conditions or Safety Concerns. Oral Hygiene (QC): 4 (sup) Upper Body Dressing (QC): 4 On/Off Footwear: 5 Toileting Hygiene (QC): 4 Toilet Transfer (QC): 4 Pt declined changing clothes. Post set up, he was able to don TLSO brace without physical assist, 1 verbal cue only for placement/positioning. No twisting/bending observed. He donned ke socks with use of sock aid and set up assist. Encouragement to stand at sink for oral care. Supervision only for task. Other Treatment Pt ambulated throughout unit with SBA and use of walker. Slow but steady gait. He stood at upper body ergometer with goal to improve overall endurance and UE strength. Task completed x2, 5 min each. Sitting rest break needed in between standing bouts. Limited resistance secondary to spinal precautions. He then ambulated to/from adl laundry room for homemaking task. OT instructed pt on proper body mechanics and use of AE during laundry activity. Post instruction, he was able to transition clothing into/out of washer with use of supervisor asbestos textile and good adherence to back precautions. Discussion/education on home set up and having family modify areas to reduce bending, specifically in kitchen. In sitting, pt performed UE exercises with use of red theraband. Min cues for technique and control of movement. Pt able to demonstrate good tolerance and may be able to increase reps or resistance at next session. 15x2 in all planes. Education OT Patient Education: Correct positioning, Energy conservation, Exercise program, Modified ADL techniques, Progress toward Goal/Update tx plan, Purpose of tx/functional activities, Reviewed precautions, Rehab process, Safety issues, Transfer techniques, Use of adapted equipment Teaching Recipient: Patient Teaching Methods: Demonstration, Discussion Response to Teaching: Verbalize Understanding, Return Demonstration OT Short Term Goals Short Term Goals Eatin Oral hygiene: 4 Toileting hygiene: 4 Shower/bathe self: 3 Upper body dressin Lower body dressin Putting on/taking off footwear: 3 OT Crankshaft Straightener Goals Crankshaft Straightener Goals Eating (QC): 6 Oral Hygiene (QC): 6 Toileting Hygiene (QC): 6 Shower/Bathe Self (QC): 4 Upper Body Dressing (QC): 4 Lower Body Dressing (QC): 5 On/Off Footwear (QC): 5 1=Demonstrate adherence to instructed precautions during ADL tasks. 2=Patient will verbalize/demonstrate understanding of assistive devices/modifications for ADL. 3=Patient will improve strength/tolerance for activity to enable patient to perform ADL's. OT Education/Plan Problem List/Assessment Assessment: Decreased Activ Tolerance, Decreased UE Strength, Impaired I ADL's, Impaired Self-Care Skills Discharge Recommendations Plan/Recommendations: Continue POC Equpiment Recommendations-D/C: Grid Molder, Sock Aide Treatment Plan/Plan of Care Patient would benefit from OT for education, treatment and training to promote independence in ADL's, mobility, safety and/or upper extremity function for ADL 's. Plan of Care: ADL Retraining, Functional Mobility, Group Exercise/Act as Ind, Orthotic Fitting/Training, UE Funct Exercise/Act Treatment Duration: Mar 09, 2021 Frequency: At least 5 of 7 days/Wk (IRF) Estimated Hrs Per Day: 1.5 hours per day Agreement: Yes Rehab Potential: Fair Time/GCodes Start Time: 07:45 Stop Time: 09:15 Total Time Billed (hr/min): 90 Billed Treatment Time 1 visit, ADL (20m) FA x3 (40m) EX x2 (30m) Lo Riley OT Feb 26, 2021 09:18
[2021-02-26] MEDS: MICONAZOLE 2% POWDER (DESENEX AF) 90 GM TOP SCH ×2 (09:38→21:19)
[2021-02-26 09:44] VITALS: BP 119/58
--- NOTE | 2021-02-26 10:27 | Physical Therapy Daily Note ---
PT Daily Note-Current Subjective Patient in recliner pre tx, agrees to PT, has unrated pain in back. Appearance Patient in recliner post tx with nurse call, phone, tray, all needs met. Mental Status Patient Orientation: Person, Place, Situation TLSO Transfers SCALE: Activities may be completed with or without assistive devices. 2-Oxutydbfvk-whjmcjf completes the activity by him/herself with no assistance from a helper. 5-Set-up or Clean-up Assistance-helper sets up or cleans up; patient completes activity. [place] assists only prior to or following the activity. 4-Supervision or Touching Assistance-helper provides verbal cues and/or touching/steadying and/or contact guard assistance as patient completes activity. Assistance may be provided throughout the activity or intermittently. 3-Partial/Moderate Assistance-helper does LESS THAN HALF the effort. [place] lifts, holds or supports trunk or limbs, but provides less than half the effort. 2-Substantial/Maximal Assistance-helper does MORE THAN HALF the effort. [place] lifts or holds trunk or limbs and provides more than half the effort. 2-Radwdgekb-ayegip does ALL the effort. Patient does none of the effort to complete the activity. Or, the assistance of 2 or more helpers is required for the patient to complete the activity. If activity was not attempted, code reason: 7-Patient Refused. 9-Not Applicable-not attempted and the patient did not perform the activity before the current illness, exacerbation or injury. 10-Not Attempted due to Environmental Limitations-(lack of equipment, weather restraints, etc.). 88-Not Attempted due to Medical Conditions or Safety Concerns. Sit to Stand (QC): 4 Chair/Vpy-wg-Xbmpr Xfer(QC): 4 SBA Weight Bearing Right Lower Extremity: Right Weight Bearing/Tolerated Left Lower Extremity: Left Weight Bearing/Tolerated Gait Training Distance: 300'x2 Walk 10 feet (QC): 4 Walk 50 ft with 2 Turns(QC): 4 Walk 150 ft (QC): 4 Gait Assistive Device: FWW slow but steady ambulation Exercises Standing: Hamstring curls, Heel/toe raises, Marching, Mini squats Standing Reps: 15 NuStep Minutes: 15 NuStep Workload: 5 (UE's not used) Treatments transfers, ambulation, LE strengthening Assessment Current Status: Fair Progress improving general mobility, but has pain with supine <-> sit PT Short Term Goals Short Term Goals Time Frame: Feb 23, 2021 Roll Left & Right: 3 Sit to lyin Lying to sitting on side of be: 3 Sit to stand: 4 Chair/dwi-wm-ekvnk transfer: 4 Walk 10 feet: 4 Walk 50 feet with two turns: 4 Walk 150 feet: 4 PT International Trade Analyst Goals Chcf Goals PT Chcf Goals Time Frame: Mar 09, 2021 Roll Left & Right (QC): 6 Sit to Lying (QC): 6 Lying-Sitting on Side/Bed(QC): 6 Sit to Stand (QC): 6 Chair/Lpd-cu-Qopqj Xfer(QC): 6 Toilet Transfer (QC): 6 Car Transfer (QC): 6 Does the Patient Walk: Yes Walk 10 feet (QC): 6 Walk 50ft with 2 Turns (QC): 6 Walk 150 ft (QC): 6 Walking 10ft on Uneven Surface: 6 1 Step (curb) (QC): 4 4 Steps (QC): 4 12 Steps (QC): 88 Picking up an Object (QC): 88 Wheel 50 feet with 2 turns (QC: 9 Wheel 150 feet: 9 PT Plan Problem List Problem List: Activity Tolerance, Functional Strength, Safety, Balance, Gait, Transfer, Bed Mobility, ROM Treatment/Plan Treatment Plan: Continue Plan of Care Treatment Plan: Bed Mobility, Education, Functional Activity J Luis, Functional Strength, Group Therapy, Gait, Safety, Therapeutic Exercise, Transfers Treatment Duration: Mar 09, 2021 Frequency: At least 5 of 7 days/Wk (IRF) Estimated Hrs Per Day: 1.5 hours per day Patient and/or Family Agrees t: Yes Safety Risks/Education Patient Education: Gait Training, Transfer Techniques, Correct Positioning, Reviewed Don/Doff Brace, Safety Issues Teaching Recipient: Patient Teaching Methods: Demonstration, Discussion Response to Teaching: Reinforcement Needed Time/GCodes Time In: 929 Time Out: 1030 Total Billed Treatment Time: 60 Total Billed Treatment 1 visit GT 15' EX 30' FA 15' JENNIFER DURON PT Feb 26, 2021 10:27
[2021-02-26] MEDS: OMEGA 3 (FISH OIL) 1000 MG CAP PO SCH (11:59)
--- NOTE | 2021-02-26 13:35 | Physical Therapy Daily Note ---
PT Daily Note-Current Subjective Patient in recliner pre tx, agrees to PT, has 5/10 back pain. Appearance Patient in recliner post tx with nurse call, phone, tray, all needs met. Mental Status Patient Orientation: Person, Place, Situation TLSO Transfers SCALE: Activities may be completed with or without assistive devices. 3-Rtjjselfow-gvrjxnp completes the activity by him/herself with no assistance from a helper. 5-Set-up or Clean-up Assistance-helper sets up or cleans up; patient completes activity. Austin assists only prior to or following the activity. 4-Supervision or Touching Assistance-helper provides verbal cues and/or touch ing/steadying and/or contact guard assistance as patient completes activity. Assistance may be provided throughout the activity or intermittently. 3-Partial/Moderate Assistance-helper does LESS THAN HALF the effort. Austin lifts, holds or supports trunk or limbs, but provides less than half the effort. 2-Substantial/Maximal Assistance-helper does MORE THAN HALF the effort. Austin lifts or holds trunk or limbs and provides more than half the effort. 0-Atyfdrfyc-mnpdze does ALL the effort. Patient does none of the effort to complete the activity. Or, the assistance of 2 or more helpers is required for the patient to complete the activity. If activity was not attempted, code reason: 7-Patient Refused. 9-Not Applicable-not attempted and the patient did not perform the activity before the current illness, exacerbation or injury. 10-Not Attempted due to Environmental Limitations-(lack of equipment, weather restraints, etc.). 88-Not Attempted due to Medical Conditions or Safety Concerns. Sit to Stand (QC): 4 Chair/Npc-ju-Avjbc Xfer(QC): 4 SBA Weight Bearing Right Lower Extremity: Right Weight Bearing/Tolerated Left Lower Extremity: Left Weight Bearing/Tolerated Gait Training Distance: 300', 150' Walk 10 feet (QC): 4 Walk 50 ft with 2 Turns(QC): 4 Walk 150 ft (QC): 4 Gait Assistive Device: FWW SBA, slow but steady ambulation Stair Training Stair Training: Handrails/: 2 handrails #of Steps: 4 1 Step (curb) (QC): 4 4 Steps (QC): 4 Stairs: Pattern: Step to SBA, cues for foot placement due to right foot pain Treatments transfers, ambulation, stair training Assessment Current Status: Fair Progress improving endurance PT Short Term Goals Short Term Goals Time Frame: Feb 23, 2021 Roll Left & Right: 3 Sit to lyin Lying to sitting on side of be: 3 Sit to stand: 4 Chair/rmo-vf-jxyto transfer: 4 Walk 10 feet: 4 Walk 50 feet with two turns: 4 Walk 150 feet: 4 PT Cellar Hand Goals Alf Goals PT Cellar Hand Goals Time Frame: Mar 09, 2021 Roll Left & Right (QC): 6 Sit to Lying (QC): 6 Lying-Sitting on Side/Bed(QC): 6 Sit to Stand (QC): 6 Chair/Prd-hv-Xxfhh Xfer(QC): 6 Toilet Transfer (QC): 6 Car Transfer (QC): 6 Does the Patient Walk: Yes Walk 10 feet (QC): 6 Walk 50ft with 2 Turns (QC): 6 Walk 150 ft (QC): 6 Walking 10ft on Uneven Surface: 6 1 Step (curb) (QC): 4 4 Steps (QC): 4 12 Steps (QC): 88 Picking up an Object (QC): 88 Wheel 50 feet with 2 turns (QC: 9 Wheel 150 feet: 9 PT Plan Problem List Problem List: Activity Tolerance, Functional Strength, Safety, Balance, Gait, Transfer, Bed Mobility, ROM Treatment/Plan Treatment Plan: Continue Plan of Care Treatment Plan: Bed Mobility, Education, Functional Activity J Luis, Functional Strength, Group Therapy, Gait, Safety, Therapeutic Exercise, Transfers Treatment Duration: Mar 09, 2021 Frequency: At least 5 of 7 days/Wk (IRF) Estimated Hrs Per Day: 1.5 hours per day Patient and/or Family Agrees t: Yes Safety Risks/Education Patient Education: Gait Training, Transfer Techniques, Steps, Correct Positioning, Reviewed Don/Doff Brace, Safety Issues Teaching Recipient: Patient Teaching Methods: Demonstration, Discussion Response to Teaching: Reinforcement Needed Time/GCodes Time In: 1300 Time Out: 1330 Total Billed Treatment Time: 30 Total Billed Treatment 1 visit FA 30' JENNIFER DURON PT Feb 26, 2021 13:35
[2021-02-26] MEDS: ENOXAPARIN 40 MG/0.4 ML (LOVENOX) SYR SC SCH (14:09)
--- NOTE | 2021-02-26 16:01 | Cardiology Progress Note ---
Progress Note-Cardiology Events since last exam Date Seen by Provider: Feb 26, 2021 Time Seen by Provider: 15:59 Events since last exam I am following him for heart failure, coronary artery disease and hypertension. Today I started him on a lower dose of furosemide. At home he was taking 80 mg daily as needed. I have changed this over to 40 mg every day. His chest pain and shortness of breath continue to improve. He denies palpitations or syncope. His ankle edema is about the same. Certain portions of this document may have been dictated utilizing voice recognition technology. Inherent to this technology, typographical and grammatical errors may exist. As much as I am diligent to identify and correct these mistakes, some errors may remain in the document. Vitals Last set of Vitals Signs Vital Signs 02/26/21 02/26/21 02/26/21 07:41 09:44 09:59 Temp 36.2 Pulse 67 Resp 18 B/P (MAP) 119/58 (78) Pulse Ox 98 O2 Delivery Room Air Labs Labs Laboratory Tests 02/26/21 05:41 Exam Vital Signs Vital Signs Date Time Temp Pulse Resp B/P (MAP) Pulse Ox O2 Delivery O2 Flow Rate FiO2 02/26/21 09:59 Room Air 02/26/21 09:44 67 18 119/58 (78) 98 02/26/21 07:41 36.2 Physical Exam General: Alert. No acute distress. He is obese. Eye: No xanthelasma. HENT: Normocephalic. Neck: Jugular venous pressure does not appear elevated. Respiratory: Lungs are clear to auscultation. Respirations are non-labored. B reath sounds are equal. Symmetrical chest wall expansion. Cardiovascular: Normal rate. Regular rhythm. 2/6 systolic ejection murmur. No gallop. 1+ bilateral pretibial edema. Gastrointestinal: Soft. Normal bowel sounds. Skin: Warm. Dry. Neurologic: Alert and oriented to person, place, time. Cranial nerves 3-11 grossly intact. Psychiatric: Cooperative. Appropriate mood & affect. Labs Laboratory Tests Test 02/26/21 05:41 Range/Units Sodium Level 136 135-145 MMOL/L Potassium Level 4.2 3.6-5.0 MMOL/L Chloride Level 104 98-107 MMOL/L Carbon Dioxide Level 22 21-32 MMOL/L Anion Gap 10 5-14 MMOL/L Blood Urea Nitrogen 23 H 7-18 MG/DL Creatinine 1.80 H 0.60-1.30 MG/DL Estimat Glomerular Filtration Rate 36 BUN/Creatinine Ratio 13 Glucose Level 107 H 70-105 MG/DL Calcium Level 9.5 8.5-10.1 MG/DL Diagnosis/Problems Diagnosis/Problems (1) Acute on chronic systolic heart failure Assessment & Plan: He may have a mild degree of heart failure. I recommend we continue metoprolol succinate. His creatinine has now stabilized around 1.8. I resumed furosemide on 02/26 but at a lower dose than he was taking at home. Rather than prescribing it as needed, I have ordered 40 mg daily. We will need to follow his creatinine level closely. (2) Primary hypertension Assessment & Plan: Blood pressures had been elevated when he was first admitted. These have now improved with metoprolol. (3) Coronary artery disease without angina pectoris Assessment & Plan: He is not having any overt angina at this point in time. I suspect the majority of his chest discomfort is related to the sternal and thoracic vertebral fractures and is not angina. He has multiple coronary stents. Continue aspirin, clopidogrel, beta-aurea, niacin, and red yeast rice. (4) Cardiomyopathy Status: Resolved Assessment & Plan: He has mild left ventricular systolic dysfunction on an echocardiogram obtained during this admission. Continue metoprolol succinate. No OSMAR, ARB, or aldosterone antagonist due to poor renal function. (5) Aortic stenosis Assessment & Plan: He has moderate aortic stenosis as noted on his echocardiogram from this admission. He does not recall any retail zone specialist telling him of this diagnosis in the past. This should not be causing symptoms at this degree but will need to be followed longitudinally by his regular outside retail zone specialist after discharge. (6) Ventricular tachycardia Assessment & Plan: From his description, it sounds as though he has a history of ventricular tachycardia or perhaps just frequent premature ventricular complexes. He did show me a rhythm strip from [place] that showed ventricular trigeminy. His grounds person in [place] had advised ablation but he was in the process of moving to [place]. He has now been in touch with an grounds person in [place] and is trying to arrange an outpatient consultation to follow-up on the ventricular arrhythmias. Although there is a report that he had a history of atrial fibrillation, he was not aware of any previous history of atrial fibrillation and he was not taking an oral anticoagulant at home, just dual antiplatelet therapy. (7) Mixed hyperlipidemia Assessment & Plan: According to the patient, his engineering equipment operator had advised him to stop fenofibrate which he did. He has been taking red yeast rice and niacin for his cholesterol. His LDL level was under good control without a statin. I recommend he continue red yeast rice and niacin. I will discontinue the fen ofibrate. (8) Chronic kidney disease, stage 3 Assessment & Plan: He did not report any previous history of kidney disease. As above, I will continue furosemide at a lower dose than he was taking at home. Continue to follow daily creatinine for the time being. (9) Obesity Assessment & Plan: He will ultimately need to work on weight loss. SUNSHINE VALLEJO JR, MD Feb 26, 2021 16:01
[2021-02-26 20:00] VITALS: BP 131/60
[2021-02-26] MEDS: MELATONIN 3 MG TABLET PO PRN (21:14)
[2021-02-27 06:39] LABS: POTASSIUM 4.1 MMOL/L (3.6-5.0)
[2021-02-27 06:40] LABS: CALCIUM 9.6 MG/DL (8.5-10.1)
[2021-02-27] MEDS: CYANOCOBALAMIN 1,000 MCG (VITAMIN B-12) TABLET PO SCH (06:43)
[2021-02-27 06:45] LABS: CREATININE SERUM 1.93 MG/DL (0.60-1.30)
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
--- NOTE | 2021-02-27 09:33 | Physical Therapy Daily Note ---
PT Daily Note-Current Subjective Pt sitting in recliner upon arrival. Pt agrees to PT. Pain Location Body Site: Chest Pain Description: Ache Comment: Pt reports discomfort in back & chest but its improved, didn't rate Mental Status Patient Orientation: Person, Place, Time, Situation Attachments: Other-See Comments (TLSO Brace) Transfers SCALE: Activities may be completed with or without assistive devices. 0-Dclcuqkrku-ewavlxv completes the activity by him/herself with no assistance from a helper. 5-Set-up or Clean-up Assistance-helper sets up or cleans up; patient completes activity. [place] assists only prior to or following the activity. 4-Supervision or Touching Assistance-helper provides verbal cues and/or touching/steadying and/or contact guard assistance as patient completes activ ity. Assistance may be provided throughout the activity or intermittently. 3-Partial/Moderate Assistance-helper does LESS THAN HALF the effort. [place] lifts, holds or supports trunk or limbs, but provides less than half the effort. 2-Substantial/Maximal Assistance-helper does MORE THAN HALF the effort. [place] lifts or holds trunk or limbs and provides more than half the effort. 8-Hcczmooie-wgaegz does ALL the effort. Patient does none of the effort to complete the activity. Or, the assistance of 2 or more helpers is required for the patient to complete the activity. If activity was not attempted, code reason: 7-Patient Refused. 9-Not Applicable-not attempted and the patient did not perform the activity before the current illness, exacerbation or injury. 10-Not Attempted due to Environmental Limitations-(lack of equipment, weather restraints, etc.). 88-Not Attempted due to Medical Conditions or Safety Concerns. Sit to Stand (QC): 5 Weight Bearing Right Lower Extremity: Right Weight Bearing/Tolerated Left Lower Extremity: Left Weight Bearing/Tolerated Gait Training Does the Patient Walk?: Yes Distance: 450' Walk 10 feet (QC): 5 Walk 50 ft with 2 Turns(QC): 5 Walk 150 ft (QC): 5 Gait Persons Needed: 1 Gait Assistive Device: FWW Wheelchair Training Does the Pt Use a Wheelchair?: No Treatments Pt dons socks using sock aide then dons TLSO with placement by DECKER OPERATOR. TF to standing then amb. in hallway. Pt returns to room to rest in recliner with all needs met, call light in hand. Assessment Current Status: Good Progress Pt is improving with strength and mobility by independence of transfers and increasing distance of ambulation. PT Short Term Goals Short Term Goals Time Frame: Feb 23, 2021 Roll Left & Right: 3 Sit to lyin Lying to sitting on side of be: 3 Sit to stand: 4 Chair/pvq-kg-shnmo transfer: 4 Walk 10 feet: 4 Walk 50 feet with two turns: 4 Walk 150 feet: 4 PT Financial Accounting Manager Goals Long-Term Goals PT Long-Term Goals Time Frame: Mar 09, 2021 Roll Left & Right (QC): 6 Sit to Lying (QC): 6 Lying-Sitting on Side/Bed(QC): 6 Sit to Stand (QC): 6 Chair/Krd-br-Srbsp Xfer(QC): 6 Toilet Transfer (QC): 6 Car Transfer (QC): 6 Does the Patient Walk: Yes Walk 10 feet (QC): 6 Walk 50ft with 2 Turns (QC): 6 Walk 150 ft (QC): 6 Walking 10ft on Uneven Surface: 6 1 Step (curb) (QC): 4 4 Steps (QC): 4 12 Steps (QC): 88 Picking up an Object (QC): 88 Wheel 50 feet with 2 turns (QC: 9 Wheel 150 feet: 9 PT Plan Problem List Problem List: Activity Tolerance Treatment/Plan Treatment Plan: Continue Plan of Care Treatment Plan: Bed Mobility, Education, Functional Activity J Luis, Functional Strength, Group Therapy, Gait, Safety, Therapeutic Exercise, Transfers Treatment Duration: Mar 09, 2021 Frequency: At least 5 of 7 days/Wk (IRF) Estimated Hrs Per Day: 1.5 hours per day Patient and/or Family Agrees t: Yes Safety Risks/Education Patient Education: Reviewed Don/Doff Brace Teaching Recipient: Patient Teaching Methods: Discussion Response to Teaching: Verbalize Understanding Time/GCodes Time In: 755 Time Out: 820 Total Billed Treatment Time: 25 Total Billed Treatment 1, FA (10m) & GT (15m) ANJU LOWRY DECKER OPERATOR Feb 27, 2021 09:33
[2021-02-27 09:48] VITALS: BP 131/60
[2021-02-27] MEDS: ASPIRIN 81 MG CHEW (CHILDREN'S ASA) PO SCH (09:51)
[2021-02-27] MEDS: PANTOPRAZOLE 20 MG TABLET (PROTONIX) PO SCH (09:52)
[2021-02-27] MEDS: FUROSEMIDE 40 MG (LASIX) TAB PO SCH (09:52)
[2021-02-27] MEDS: NIACIN ER (NIASPAN) 500 MG TAB PO SCH ×2 (09:52→18:20)
[2021-02-27] MEDS: VITAMIN E 180 MG (400 UNITS) CAP PO SCH (09:52)
[2021-02-27] MEDS: VITAMIN D3 125 MCG (5,000 UNITS) CAPSULE PO SCH (09:52)
[2021-02-27] MEDS: CLOPIDOGREL 75 MG (PLAVIX) TABLET PO SCH (09:52)
[2021-02-27] MEDS: oxyCODONE ER 10 MG (OxyCONTIN CR) TAB PO SCH ×2 (09:53→21:53)
[2021-02-27] MEDS: RED YEAST RICE 600 MG PO SCH ×2 (09:55→18:23)
[2021-02-27] MEDS: MICONAZOLE 2% POWDER (DESENEX AF) 90 GM TOP SCH ×2 (09:58→21:55)
[2021-02-27] MEDS: DOCUSATE SODIUM 100 MG (COLACE) CAP PO SCH ×2 (10:02→21:54)
[2021-02-27] MEDS: polyethylene glycoL POWDER 17 GM (MIRALAX) PACK PO SCH (10:02)
[2021-02-27] MEDS: SENNA W/DOCUSATE (SENOKOT S) TABLET PO SCH ×2 (10:02→21:53)
[2021-02-27] MEDS: OMEGA 3 (FISH OIL) 1000 MG CAP PO SCH (13:32)
[2021-02-27] MEDS: ENOXAPARIN 40 MG/0.4 ML (LOVENOX) SYR SC SCH (13:33)
--- NOTE | 2021-02-27 16:38 | Cardiology Progress Note ---
Progress Note-Cardiology Events since last exam Date Seen by Provider: Feb 27, 2021 Time Seen by Provider: 16:37 Events since last exam I am following him for heart failure and hypertension in the setting of chronic kidney disease. I just restarted a lower dose of oral furosemide on 02/26. He feels as though his breathing and chest discomfort continue to gradually improve. He denies palpitations or syncope. He has been trying to wear compression stockings. His edema may be slightly worse today. At home he had been taking 80 mg most days and sometimes he would take 120 mg of Lasix. Certain portions of this document may have been dictated utilizing voice recognition technology. Inherent to this technology, typographical and grammatical errors may exist. As much as I am diligent to identify and correct these mistakes, some errors may remain in the document. Vitals Last set of Vitals Signs Vital Signs 02/27/21 09:48 Temp 36.1 Pulse 51 Resp 20 B/P (MAP) 131/60 (83) Pulse Ox 99 O2 Delivery Room Air Labs Labs Laboratory Tests 02/27/21 05:19 Exam Vital Signs Vital Signs Date Time Temp Pulse Resp B/P (MAP) Pulse Ox O2 Delivery O2 Flow Rate FiO2 02/27/21 09:48 36.1 51 20 131/60 (83) 99 Room Air Physical Exam General: Alert. No acute distress. He is obese. Eye: No xanthelasma. HENT: Normocephalic. Neck: Jugular venous pressure does not appear elevated. Respiratory: Lungs are clear to auscultation. Respirations are non-labored. Breath sounds are equal. Symmetrical chest wall expansion. Cardiovascular: Normal rate. Regular rhythm. 2/6 systolic ejection murmur. No gallop. 2+ bilateral pretibial edema, slightly worse than yesterday. Gastrointestinal: Soft. Normal bowel sounds. Skin: Warm. Dry. Neurologic: Alert and oriented to person, place, time. Cranial nerves 3-11 grossly intact. Psychiatric: Cooperative. Appropriate mood & affect. Labs Laboratory Tests Test 02/27/21 05:19 Range/Units Sodium Level 137 135-145 MMOL/L Potassium Level 4.1 3.6-5.0 MMOL/L Chloride Level 103 98-107 MMOL/L Carbon Dioxide Level 22 21-32 MMOL/L Anion Gap 12 5-14 MMOL/L Blood Urea Nitrogen 27 H 7-18 MG/DL Creatinine 1.93 H 0.60-1.30 MG/DL Estimat Glomerular Filtration Rate 33 BUN/Creatinine Ratio 14 Glucose Level 108 H 70-105 MG/DL Calcium Level 9.6 8.5-10.1 MG/DL Diagnosis/Problems Diagnosis/Problems (1) Acute on chronic systolic heart failure Assessment & Plan: He probably has a mild degree of heart failure predominantly manifested by peripheral edema. His edema seems to be slightly worse today. I encouraged him to wear his compression stockings as much as possible. I recommend we continue metoprolol succinate. His creatinine has now stabilized around 1.8-1.9. I resumed furosemide on 02/26 but at a lower dose than he was taking at home. Rather than prescribing it as needed, I have ordered 40 mg daily. I will obtain another follow-up metabolic panel in the morning. If this remains stable from today, then we could probably stop checking this blood test quite as often. (2) Primary hypertension Assessment & Plan: Blood pressures had been elevated when he was first admitted. These have now improved with metoprolol. (3) Coronary artery disease without angina pectoris Assessment & Plan: He is not having any overt angina at this point in time. I suspect the majority of his chest discomfort is related to the sternal and thoracic vertebral fractures and is not angina. He has multiple coronary stents. Continue aspirin, clopidogrel, beta-aurea, niacin, and red yeast rice. (4) Cardiomyopathy Status: Resolved Assessment & Plan: He has mild left ventricular systolic dysfunction on an echocardiogram obtained during this admission. Continue metoprolol succinate. No OSMAR, ARB, or aldosterone antagonist due to poor renal function. (5) Aortic stenosis Assessment & Plan: He has moderate aortic stenosis as noted on his echocardiogram from this admission. He does not recall any voltage inspector telling him of this diagnosis in the past. This should not be causing symptoms at this degree but will need to be followed longitudinally by his regular outside voltage inspector after discharge. (6) Ventricular tachycardia Assessment & Plan: From his description, it sounds as though he has a history of ventricular tachycardia or perhaps just frequent premature ventricular complexes. He did show me a rhythm strip from [place] that showed ventricular trigeminy. His outside dealer sales representative in [place] had advised ablation but he was in the process of moving to [place]. He has now been in touch with an el ectrophysiologist in [place] and is trying to arrange an outpatient consultation to follow-up on the ventricular arrhythmias. Although there is a report that he had a history of atrial fibrillation, he was not aware of any previous history of atrial fibrillation and he was not taking an oral anticoagulant at home, just dual antiplatelet therapy. (7) Mixed hyperlipidemia Assessment & Plan: According to the patient, his beauty sales consultant had advised him to stop fenofibrate which he did. He has been taking red yeast rice and niacin for his cholesterol. His LDL level was under good control without a statin. I recommend he continue red yeast rice and niacin. I will discontinue the fenofibrate. (8) Chronic kidney disease, stage 3 Assessment & Plan: He did not report any previous history of kidney disease. As above, I will continue furosemide at a lower dose than he was taking at home. Continue to follow daily creatinine for the time being. (9) Obesity Assessment & Plan: He will ultimately need to work on weight loss. SUNSHINE VALLEJO JR, MD Feb 27, 2021 16:38
[2021-02-27 20:00] VITALS: BP 112/56
[2021-02-28 06:36] LABS: BASOPHILS % (AUTO) 1 % (0-10); EOSINOPHILS # (AUTO) 0.2 10^3/uL (0.0-0.3); EOSINOPHILS % (AUTO) 6 % (0-10); HEMATOCRIT 30 % (40-54); HEMOGLOBIN 9.9 g/dL (13.3-17.7); LYMPHOCYTES # (AUTO) 1.2 10^3/uL (1.0-4.0); LYMPHOCYTES % (AUTO) 31 % (12-44); MEAN CORPUSCULAR HEMOGLOBIN 33 pg (25-34); MEAN CORPUSCULAR HGB CONC 33 g/dL (32-36); MEAN CORPUSCULAR VOLUME 100 fL (80-99); MEAN PLATELET VOLUME 11.1 fL (9.0-12.2); MONOCYTES # (AUTO) 0.4 10^3/uL (0.0-1.0); MONOCYTES % (AUTO) 9 % (0-12); NEUTROPHILS % (AUTO) 53 % (42-75); PLATELET COUNT 211 10^3/uL (130-400); WHITE BLOOD COUNT 3.8 10^3/uL (4.3-11.0)
[2021-02-28] MEDS: CYANOCOBALAMIN 1,000 MCG (VITAMIN B-12) TABLET PO SCH (06:39)
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
[2021-02-28 06:54] LABS: POTASSIUM 3.9 MMOL/L (3.6-5.0)
[2021-02-28 06:55] LABS: CALCIUM 9.5 MG/DL (8.5-10.1)
[2021-02-28 06:59] LABS: CREATININE SERUM 1.92 MG/DL (0.60-1.30)
[2021-02-28] MEDS: VITAMIN E 180 MG (400 UNITS) CAP PO SCH (09:53)
[2021-02-28] MEDS: NIACIN ER (NIASPAN) 500 MG TAB PO SCH ×2 (09:53→17:52)
[2021-02-28] MEDS: VITAMIN D3 125 MCG (5,000 UNITS) CAPSULE PO SCH (09:53)
[2021-02-28] MEDS: oxyCODONE ER 10 MG (OxyCONTIN CR) TAB PO SCH ×2 (09:53→20:26)
[2021-02-28] MEDS: ASPIRIN 81 MG CHEW (CHILDREN'S ASA) PO SCH (09:54)
[2021-02-28] MEDS: CLOPIDOGREL 75 MG (PLAVIX) TABLET PO SCH (09:54)
[2021-02-28] MEDS: DOCUSATE SODIUM 100 MG (COLACE) CAP PO SCH ×2 (09:54→20:02)
[2021-02-28] MEDS: SENNA W/DOCUSATE (SENOKOT S) TABLET PO SCH ×2 (09:54→20:02)
[2021-02-28] MEDS: PANTOPRAZOLE 20 MG TABLET (PROTONIX) PO SCH (09:54)
[2021-02-28] MEDS: FUROSEMIDE 40 MG (LASIX) TAB PO SCH (09:54)
[2021-02-28] MEDS: polyethylene glycoL POWDER 17 GM (MIRALAX) PACK PO SCH (09:54)
[2021-02-28 09:58] VITALS: BP 113/54
[2021-02-28] MEDS: CALCIUM CARBONATE 500 MG (TUMS) TAB.CHEW PO PRN (09:59)
[2021-02-28] MEDS: RED YEAST RICE 600 MG PO SCH ×2 (10:18→17:54)
[2021-02-28] MEDS: MICONAZOLE 2% POWDER (DESENEX AF) 90 GM TOP SCH ×2 (10:19→20:26)
[2021-02-28] MEDS: OMEGA 3 (FISH OIL) 1000 MG CAP PO SCH (12:42)
[2021-02-28] MEDS: ENOXAPARIN 40 MG/0.4 ML (LOVENOX) SYR SC SCH (12:59)
--- NOTE | 2021-02-28 16:06 | Cardiology Progress Note ---
Progress Note-Cardiology Events since last exam Date Seen by Provider: Feb 28, 2021 Time Seen by Provider: 16:01 Events since last exam I am following him for heart failure. His edema may actually be slightly better today. His breathing is about the same but his chest pain continues to improve. He feels like he is slowly making progress to recovery. He denies palpitations or syncope. Certain portions of this document may have been dictated utilizing voice recognition technology. Inherent to this technology, typographical and grammatical errors may exist. As much as I am diligent to identify and correct these mistakes, some errors may remain in the document. Vitals Last set of Vitals Signs Vital Signs 02/28/21 09:58 Temp 36.1 Pulse 58 Resp 20 B/P (MAP) 113/54 (73) Pulse Ox 98 O2 Delivery Room Air Labs Labs Laboratory Tests 02/28/21 05:15 Exam Vital Signs Vital Signs Date Time Temp Pulse Resp B/P (MAP) Pulse Ox O2 Delivery O2 Flow Rate FiO2 02/28/21 09:58 36.1 58 20 113/54 (73) 98 Room Air Physical Exam General: Alert. No acute distress. He is obese. Eye: No xanthelasma. HENT: Normocephalic. Neck: Jugular venous pressure does not appear elevated. Respiratory: Lungs are clear to auscultation. Respirations are non-labored. Breath sounds are equal. Symmetrical chest wall expansion. Cardiovascular: Normal rate. Regular rhythm. 2/6 systolic ejection murmur. No gallop. 1+ bilateral pretibial edema. Gastrointestinal: Soft. Normal bowel sounds. Skin: Warm. Dry. Neurologic: Alert and oriented to person, place, time. Cranial nerves 3-11 grossly intact. Psychiatric: Cooperative. Appropriate mood & affect. Labs Laboratory Tests Test 02/28/21 05:15 Range/Units White Blood Count 3.8 L 4.3-11.0 10^3/uL Red Blood Count 3.02 L 4.30-5.52 10^6/uL Hemoglobin 9.9 L 13.3-17.7 g/dL Hematocrit 30 L 40-54 % Mean Corpuscular Volume 100 H 80-99 fL Mean Corpuscular Hemoglobin 33 25-34 pg Mean Corpuscular Hemoglobin Concent 33 32-36 g/dL Red Cell Distribution Width 15.6 H 10.0-14.5 % Platelet Count 211 130-400 10^3/uL Mean Platelet Volume 11.1 9.0-12.2 fL Immature Granulocyte % (Auto) 0 % Neutrophils (%) (Auto) 53 42-75 % Lymphocytes (%) (Auto) 31 12-44 % Monocytes (%) (Auto) 9 0-12 % Eosinophils (%) (Auto) 6 0-10 % Basophils (%) (Auto) 1 0-10 % Neutrophils # (Auto) 2.0 1.8-7.8 10^3/uL Lymphocytes # (Auto) 1.2 1.0-4.0 10^3/uL Monocytes # (Auto) 0.4 0.0-1.0 10^3/uL Eosinophils # (Auto) 0.2 0.0-0.3 10^3/uL Basophils # (Auto) 0.0 0.0-0.1 10^3/uL Immature Granulocyte # (Auto) 0.0 0.0-0.1 10^3/uL Sodium Level 137 135-145 MMOL/L Potassium Level 3.9 3.6-5.0 MMOL/L Chloride Level 102 98-107 MMOL/L Carbon Dioxide Level 23 21-32 MMOL/L Anion Gap 12 5-14 MMOL/L Blood Urea Nitrogen 27 H 7-18 MG/DL Creatinine 1.92 H 0.60-1.30 MG/DL Estimat Glomerular Filtration Rate 34 BUN/Creatinine Ratio 14 Glucose Level 117 H 70-105 MG/DL Calcium Level 9.5 8.5-10.1 MG/DL Diagnosis/Problems Diagnosis/Problems (1) Acute on chronic systolic heart failure Assessment & Plan: At this point in time, he appears to be well compensated. His heart failure mainly seems to be manifested by edema which seems to have stabilized. I suspect this may never completely resolve. I encouraged him to wear his compression stockings as much as possible. I recommend we continue metoprolol succinate. His creatinine has now stabilized around 1.8-1.9. I resumed furosemide on 02/26 but at a lower dose than he was taking at home. Rather than prescribing it as needed, I have ordered 40 mg daily. His creatinine has now been stable right around 1.9 mg/dL for several days. At this point in time, there do not appear to be any acute, active cardiac issues. As such, cardiology will sign off. I did tell the patient that when he is discharged home, he should not take any extra doses of furosemide without for speaking with his loan officer assistant or primary provider. He does also plan to meet with the monogram and letter paster after discharge. (2) Primary hypertension Assessment & Plan: Blood pressures had been elevated when he was first admitted. These have now improved with metoprolol. 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 I suspect the majority of his chest discomfort is related to the sternal and thoracic vertebral fractures and is not angina. He has multiple coronary stents. Continue aspirin, clopidogrel, beta-aurea, niacin, and red yeast rice. He is not on statin medication because he takes niacin and red yeast rice. (4) Cardiomyopathy Status: Resolved Assessment & Plan: He has mild left ventricular systolic dysfunction on an echocardiogram obtained during this admission. Continue metoprolol succinate. No OSMAR, ARB, or aldosterone antagonist due to poor renal function. This will need to be followed by his local loan officer assistant closer to home after discharge. (5) Aortic stenosis Assessment & Plan: He has moderate aortic stenosis as noted on his echocardiogram from this admission. He does not recall any loan officer assistant telling him of this diagnosis in the past. This should not be causing symptoms at this degree but will need to be followed longitudinally by his regular outside card iologist after discharge. (6) Ventricular tachycardia Assessment & Plan: From his description, it sounds as though he has a history of ventricular tachycardia or perhaps just frequent premature ventricular complexes. He did show me a rhythm strip from [place] that showed ventricular trigeminy. His development professional in [place] had advised ablation but he was in the process of moving to [place]. He has now been in touch with an development professional in [place] and is trying to arrange an outpatient consultation to follow-up on the ventricular arrhythmias. Although there is a report that he had a history of atrial fibrillation, he was not aware of any previous history of atrial fibrillation and he was not taking an oral anticoagulant at home, just dual antiplatelet therapy. (7) Mixed hyperlipidemia Assessment & Plan: According to the patient, his monogram and letter paster had advised him to stop fenofibrate which he did. He has been taking red yeast rice and niacin for his cholesterol. His LDL level was under good control without a statin. I recommend he continue red yeast rice and niacin. I will discontinue the fenofibrate. (8) Chronic kidney disease, stage 3 Assessment & Plan: He did not report any previous history of kidney disease. As above, I will continue furosemide at a lower dose than he was taking at home. I will not order any additional metabolic panels. If he is still here in a week, one might consider a follow-up basic metabolic panel sometime early next week. (9) Obesity Assessment & Plan: He will ultimately need to work on weight loss. SUNSHINE VALLEJO JR, MD Feb 28, 2021 16:05
[2021-02-28 20:00] VITALS: BP 119/61
[2021-03-01] MEDS: CYANOCOBALAMIN 1,000 MCG (VITAMIN B-12) TABLET PO SCH (05:25)
[2021-03-01 05:58] LABS: BASOPHILS % (AUTO) 1 % (0-10); EOSINOPHILS # (AUTO) 0.2 10^3/uL (0.0-0.3); EOSINOPHILS % (AUTO) 6 % (0-10); HEMATOCRIT 29 % (40-54); HEMOGLOBIN 9.3 g/dL (13.3-17.7); LYMPHOCYTES # (AUTO) 1.1 10^3/uL (1.0-4.0); LYMPHOCYTES % (AUTO) 31 % (12-44); MEAN CORPUSCULAR HEMOGLOBIN 33 pg (25-34); MEAN CORPUSCULAR HGB CONC 32 g/dL (32-36); MEAN CORPUSCULAR VOLUME 101 fL (80-99); MEAN PLATELET VOLUME 11.1 fL (9.0-12.2); MONOCYTES # (AUTO) 0.4 10^3/uL (0.0-1.0); MONOCYTES % (AUTO) 11 % (0-12); NEUTROPHILS # (AUTO) 1.9 10^3/uL (1.8-7.8); NEUTROPHILS % (AUTO) 52 % (42-75); PLATELET COUNT 206 10^3/uL (130-400); WHITE BLOOD COUNT 3.7 10^3/uL (4.3-11.0)
[2021-03-01 06:18] LABS: ALBUMIN 2.9 GM/DL (3.2-4.5); BILIRUBIN,TOTAL 0.5 MG/DL (0.1-1.0); CALCIUM 9.5 MG/DL (8.5-10.1); CREATININE SERUM 1.93 MG/DL (0.60-1.30); POTASSIUM 4.1 MMOL/L (3.6-5.0); TOTAL PROTEIN 6.9 GM/DL (6.4-8.2)
[2021-03-01 07:27] VITALS: BP 119/59
[2021-03-01] MEDS: ASPIRIN 81 MG CHEW (CHILDREN'S ASA) PO SCH (07:49)
[2021-03-01] MEDS: CLOPIDOGREL 75 MG (PLAVIX) TABLET PO SCH (07:49)
[2021-03-01] MEDS: VITAMIN E 180 MG (400 UNITS) CAP PO SCH (07:49)
[2021-03-01] MEDS: DOCUSATE SODIUM 100 MG (COLACE) CAP PO SCH ×2 (07:49→20:26)
[2021-03-01] MEDS: NIACIN ER (NIASPAN) 500 MG TAB PO SCH ×2 (07:49→18:17)
[2021-03-01] MEDS: SENNA W/DOCUSATE (SENOKOT S) TABLET PO SCH ×2 (07:49→20:26)
[2021-03-01] MEDS: polyethylene glycoL POWDER 17 GM (MIRALAX) PACK PO SCH (07:49)
[2021-03-01] MEDS: PANTOPRAZOLE 20 MG TABLET (PROTONIX) PO SCH (07:50)
[2021-03-01] MEDS: oxyCODONE ER 10 MG (OxyCONTIN CR) TAB PO SCH ×2 (07:50→21:55)
[2021-03-01] MEDS: VITAMIN D3 125 MCG (5,000 UNITS) CAPSULE PO SCH (07:50)
[2021-03-01] MEDS: FUROSEMIDE 40 MG (LASIX) TAB PO SCH (07:50)
[2021-03-01] MEDS: RED YEAST RICE 600 MG PO SCH ×2 (07:51→18:17)
[2021-03-01] MEDS: MICONAZOLE 2% POWDER (DESENEX AF) 90 GM TOP SCH ×2 (07:51→22:00)
--- NOTE | 2021-03-01 09:27 | Occupational Ther Daily Note ---
OT Current Status-Daily Note Subjective Pt reports new pain in R shoulder but also states that the pain has "probably always been there but my back and chest pain masked it." Appearance Pt left sitting in recliner, all needs within reach. Mental Status/Objective Patient Orientation: Person, Place, Time ADL-Treatment Therapy Code Descriptions/Definitions Functional [place] Measure: 0=Not Assessed/NA 4=Minimal Assistance 1=Total Assistance 5=Supervision or Setup 2=Maximal Assistance 6=Modified [place] 3=Moderate Assistance 7=Complete IndependenceSCALE: Activities may be completed with or without assistive devices. 1-Diqcpgtpdi-bnslgmu completes the activity by him/herself with no assistance from a helper. 5-Set-up or Clean-up Assistance-helper sets up or cleans up; patient completes activity. [place] assists only prior to or following the activity. 4-Supervision or Touching Assistance-helper provides verbal cues and/or touch ing/steadying and/or contact guard assistance as patient completes activity. Assistance may be provided throughout the activity or intermittently. 3-Partial/Moderate Assistance-helper does LESS THAN HALF the effort. [place] lifts, holds or supports trunk or limbs, but provides less than half the effort. 2-Substantial/Maximal Assistance-helper does MORE THAN HALF the effort. [place] lifts or holds trunk or limbs and provides more than half the effort. 9-Wtukhgyyu-gcwmox does ALL the effort. Patient does none of the effort to complete the activity. Or, the assistance of 2 or more helpers is required for the patient to complete the activity. If activity was not attempted, code reason: 7-Patient Refused. 9-Not Applicable-not attempted and the patient did not perform the activity before the current illness, exacerbation or injury. 10-Not Attempted due to Environmental Limitations-(lack of equipment, weather restraints, etc.). 88-Not Attempted due to Medical Conditions or Safety Concerns. Oral Hygiene (QC): 4 Bathing Location: L Arm, R Arm, Chest, Abdomen Upper Body Dressing (QC): 4 Lower Body Dressing (QC): 4 On/Off Footwear: 6 (with use of sock aid) Toileting Hygiene (QC): 4 Toilet Transfer (QC): 4 Partial sponge bath performed sitting in chair. Upper body washed only with set up of supplies. He was able to don new shirt with set up; Min a when donning brace around back. Pt continues to attempt to stand without brace at times and requires education and reinforcement on purpose of wearing brace. "I understand the importance and will take full responsibility if something happens." Poor compliance/insight into safety. He was able to don pants without use of computational theory scientist this date. He stood at the sink to wash face, comb hair, brush teeth, and shave with supervision only. He was able to tolerate standing for >8 min. Other Treatment Pt participated in standing activity (sequence) to address standing balance, endurance, LE strengthening, and activity tolerance needed for functional tasks. Game played while standing on blue Airex foam. Close sba-cga throughout. Mild unsteadiness but no LOB observed. 3 standing bouts; 7 min, 8 min, and 5 min. Sitting rest breaks in between each bout. Good problem solving and strategic game moves identified by patient. Education OT Patient Education: Correct positioning, Energy conservation, Modified ADL techniques, Progress toward Goal/Update tx plan, Purpose of tx/functional activities, Reviewed precautions, Rehab process, Safety issues Teaching Recipient: Patient Teaching Methods: Discussion Response to Teaching: Verbalize Understanding, Return Demonstration, Reinforcement Needed OT Short Term Goals Short Term Goals Eatin Oral hygiene: 4 Toileting hygiene: 4 Shower/bathe self: 3 Upper body dressin Lower body dressin Putting on/taking off footwear: 3 OT Bandoleer Straightener Stamper Goals Residential Goals Eating (QC): 6 Oral Hygiene (QC): 6 Toileting Hygiene (QC): 6 Shower/Bathe Self (QC): 4 Upper Body Dressing (QC): 4 Lower Body Dressing (QC): 5 On/Off Footwear (QC): 5 1=Demonstrate adherence to instructed precautions during ADL tasks. 2=Patient will verbalize/demonstrate understanding of assistive devices/modifications for ADL. 3=Patient will improve strength/tolerance for activity to enable patient to perform ADL's. OT Education/Plan Problem List/Assessment Assessment: Decreased Activ Tolerance, Decreased Safety Aware, Decreased UE S trength, Impaired I ADL's Discharge Recommendations Plan/Recommendations: Continue POC Equpiment Recommendations-D/C: Rails on Tub/Shower, Bath Chair, Business Solutions Director, Sock Aide Comment Pt reports that there is a possibility that he can stay with his youngest daughter post d/c. Treatment Plan/Plan of Care Treatment,Training & Education: Yes Patient would benefit from OT for education, treatment and training to promote independence in ADL's, mobility, safety and/or upper extremity function for ADL's. Plan of Care: ADL Retraining, Functional Mobility, Group Exercise/Act as Ind, Orthotic Fitting/Training, UE Funct Exercise/Act Treatment Duration: Mar 09, 2021 Frequency: At least 5 of 7 days/Wk (IRF) Estimated Hrs Per Day: 1.5 hours per day Agreement: Yes Rehab Potential: Fair Time/GCodes Start Time: 07:50 Stop Time: 09:20 Total Time Billed (hr/min): 90 Billed Treatment Time 1 visit, ADL x3 (40min ) FA x3 (50 min) Lo Riley OT Mar 01, 2021 09:27
--- NOTE | 2021-03-01 11:27 | Physical Therapy Daily Note ---
PT Daily Note-Current Subjective Pt in recliner upon arrival and reluctantly agrees to tx. Pt states he has "his normal pain" and no new pain at this time. Mental Status Patient Orientation: Person, Place Transfers SCALE: Activities may be completed with or without assistive devices. 6-Qeukpwpyst-pjixoex completes the activity by him/herself with no assistance from a helper. 5-Set-up or Clean-up Assistance-helper sets up or cleans up; patient completes activity. [place] assists only prior to or following the activity. 4-Supervision or Touching Assistance-helper provides verbal cues and/or touching/steadying and/or contact guard assistance as patient completes activity. Assistance may be provided throughout the activity or intermittently. 3-Partial/Moderate Assistance-helper does LESS THAN HALF the effort. [place] lifts, holds or supports trunk or limbs, but provides less than half the effort. 2-Substantial/Maximal Assistance-helper does MORE THAN HALF the effort. [place] lifts or holds trunk or limbs and provides more than half the effort. 4-Ruzdqdojs-anrynl does ALL the effort. Patient does none of the effort to complete the activity. Or, the assistance of 2 or more helpers is required for the patient to complete the activity. If activity was not attempted, code reason: 7-Patient Refused. 9-Not Applicable-not attempted and the patient did not perform the activity before the current illness, exacerbation or injury. 10-Not Attempted due to Environmental Limitations-(lack of equipment, weather restraints, etc.). 88-Not Attempted due to Medical Conditions or Safety Concerns. Sit to Stand (QC): 5 Weight Bearing Right Lower Extremity: Right Weight Bearing/Tolerated Left Lower Extremity: Left Weight Bearing/Tolerated Gait Training Does the Patient Walk?: Yes Distance: 300' x2 Walk 10 feet (QC): 5 Walk 50 ft with 2 Turns(QC): 5 Walk 150 ft (QC): 5 Gait Assistive Device: FWW Exercises Seated Therapy Exercises: Long arc quads Standing: Hamstring curls, Marching, Mini squats, Retro gait, Sit to Stand, Side steps Standing Reps: 10 LAQ for 5 mins NuStep Minutes: 10 NuStep Workload: 4 Treatments Pt sit to stand from recliner and request to use BR. Pt able to doff/don pants and stand to use toilet SBA. Pt amb 300' and enters therapy gym. Pt completes NuStep for 10 mins followed by standing ex in // bars. Pt then completes seated ex. Pt amb another 300' and returns to room. Pt stays in recliner w/ all needs met, call light in hand. Assessment Current Status: Fair Progress Pt limited by pain. Pt seems unmotivated to improve PT Short Term Goals Short Term Goals Time Frame: Feb 23, 2021 Roll Left & Right: 3 Sit to lyin Lying to sitting on side of be: 3 Sit to stand: 4 Chair/iux-di-vxxfj transfer: 4 Walk 10 feet: 4 Walk 50 feet with two turns: 4 Walk 150 feet: 4 PT Clinical Pharmacy Specialist Goals Clinical Pharmacy Specialist Goals PT Clinical Pharmacy Specialist Goals Time Frame: Mar 09, 2021 Roll Left & Right (QC): 6 Sit to Lying (QC): 6 Lying-Sitting on Side/Bed(QC): 6 Sit to Stand (QC): 6 Chair/Xnq-kt-Bkrvj Xfer(QC): 6 Toilet Transfer (QC): 6 Car Transfer (QC): 6 Does the Patient Walk: Yes Walk 10 feet (QC): 6 Walk 50ft with 2 Turns (QC): 6 Walk 150 ft (QC): 6 Walking 10ft on Uneven Surface: 6 1 Step (curb) (QC): 4 4 Steps (QC): 4 12 Steps (QC): 88 Picking up an Object (QC): 88 Wheel 50 feet with 2 turns (QC: 9 Wheel 150 feet: 9 PT Plan Treatment/Plan Treatment Plan: Continue Plan of Care Treatment Plan: Bed Mobility, Education, Functional Activity J Luis, Functional Strength, Group Therapy, Gait, Safety, Therapeutic Exercise, Transfers Treatment Duration: Mar 09, 2021 Frequency: At least 5 of 7 days/Wk (IRF) Estimated Hrs Per Day: 1.5 hours per day Patient and/or Family Agrees t: Yes Time/GCodes Time In: 1030 Time Out: 1130 Total Billed Treatment Time: 60 Total Billed Treatment 1, Ex x2, GT x2 ZAKI NICE PHOTOGRAPHER NEWS Mar 01, 2021 11:26
[2021-03-01] MEDS: OMEGA 3 (FISH OIL) 1000 MG CAP PO SCH (12:03)
--- NOTE | 2021-03-01 13:33 | Physical Therapy Daily Note ---
PT Daily Note-Current Subjective Pt in recliner w/ family in room upon arrival and agrees to tx. Pt states no pain at this time. Mental Status Patient Orientation: Person, Place, Time, Situation Transfers SCALE: Activities may be completed with or without assistive devices. 1-Oajmisgdns-iqjfraw completes the activity by him/herself with no assistance from a helper. 5-Set-up or Clean-up Assistance-helper sets up or cleans up; patient completes activity. [place] assists only prior to or following the activity. 4-Supervision or Touching Assistance-helper provides verbal cues and/or touching/steadying and/or contact guard assistance as patient completes acti vity. Assistance may be provided throughout the activity or intermittently. 3-Partial/Moderate Assistance-helper does LESS THAN HALF the effort. [place] lifts, holds or supports trunk or limbs, but provides less than half the effort. 2-Substantial/Maximal Assistance-helper does MORE THAN HALF the effort. [place] lifts or holds trunk or limbs and provides more than half the effort. 1-Qxeibaijq-qqtjyo does ALL the effort. Patient does none of the effort to complete the activity. Or, the assistance of 2 or more helpers is required for the patient to complete the activity. If activity was not attempted, code reason: 7-Patient Refused. 9-Not Applicable-not attempted and the patient did not perform the activity before the current illness, exacerbation or injury. 10-Not Attempted due to Environmental Limitations-(lack of equipment, weather restraints, etc.). 88-Not Attempted due to Medical Conditions or Safety Concerns. Sit to Stand (QC): 5 Weight Bearing Right Lower Extremity: Right Weight Bearing/Tolerated Left Lower Extremity: Left Weight Bearing/Tolerated Gait Training Does the Patient Walk?: Yes Distance: 300', 150' Walk 10 feet (QC): 5 Walk 50 ft with 2 Turns(QC): 5 Walk 150 ft (QC): 5 Gait Persons Needed: 1 Gait Assistive Device: FWW Exercises Standing: Unilateral stance, Weight shifts Treatments Pt amb 300' on ARU w/ FWW and SBA and enters therapy gym. Pt holds static standing balance on AirEx 8 mins total: stands for 2 mins, then w/ eyes closed for 30 seconds, eyes open weight shifts for 2 mins, eyes closed 30 seconds, and static stance 3 minutes. Pt attempts SLS on AirEx but unable to hold. Pt then steps off AirEx and attempt to hold SLS in // bars. Pt able to hold on L LE 10 seconds and R LE 15 seconds. Pt then amb 150' back to room and returns to recliner. Pt left with all needs met and call light in hand. Assessment Current Status: Good Progress Pt increasing endurance PT Short Term Goals Short Term Goals Time Frame: Feb 23, 2021 Roll Left & Right: 3 Sit to lyin Lying to sitting on side of be: 3 Sit to stand: 4 Chair/owz-wy-sdoht transfer: 4 Walk 10 feet: 4 Walk 50 feet with two turns: 4 Walk 150 feet: 4 PT Alf Goals Alf Goals PT Alf Goals Time Frame: Mar 09, 2021 Roll Left & Right (QC): 6 Sit to Lying (QC): 6 Lying-Sitting on Side/Bed(QC): 6 Sit to Stand (QC): 6 Chair/Xzo-jd-Sfaac Xfer(QC): 6 Toilet Transfer (QC): 6 Car Transfer (QC): 6 Does the Patient Walk: Yes Walk 10 feet (QC): 6 Walk 50ft with 2 Turns (QC): 6 Walk 150 ft (QC): 6 Walking 10ft on Uneven Surface: 6 1 Step (curb) (QC): 4 4 Steps (QC): 4 12 Steps (QC): 88 Picking up an Object (QC): 88 Wheel 50 feet with 2 turns (QC: 9 Wheel 150 feet: 9 PT Plan Treatment/Plan Treatment Plan: Continue Plan of Care Treatment Plan: Bed Mobility, Education, Functional Activity J Luis, Functional Strength, Group Therapy, Gait, Safety, Therapeutic Exercise, Transfers Treatment Duration: Mar 09, 2021 Frequency: At least 5 of 7 days/Wk (IRF) Estimated Hrs Per Day: 1.5 hours per day Patient and/or Family Agrees t: Yes Time/GCodes Time In: 1300 Time Out: 1330 Total Billed Treatment Time: 30 Total Billed Treatment 1, GT, ZAKI STEIN JUVENILE CORRECTIONAL OFFICER Mar 01, 2021 13:33
[2021-03-01] MEDS: ENOXAPARIN 40 MG/0.4 ML (LOVENOX) SYR SC SCH (14:48)
[2021-03-01 19:35] VITALS: BP 122/58
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
[2021-03-01] MEDS: MELATONIN 3 MG TABLET PO PRN (22:00)
[2021-03-02] MEDS: CYANOCOBALAMIN 1,000 MCG (VITAMIN B-12) TABLET PO SCH (06:38)
[2021-03-02 07:28] VITALS: BP 114/78
--- NOTE | 2021-03-02 09:19 | Occupational Ther Daily Note ---
OT Current Status-Daily Note Subjective Pt denies any pain, reports only drowsiness. Appearance Pt left sitting in chair, all needs within reach at end of treatment. Mental Status/Objective Patient Orientation: Person, Place, Time, Situation ADL-Treatment Therapy Code Descriptions/Definitions Functional [place] Measure: 0=Not Assessed/NA 4=Minimal Assistance 1=Total Assistance 5=Supervision or Setup 2=Maximal Assistance 6=Modified [place] 3=Moderate Assistance 7=Complete IndependenceSCALE: Activities may be completed with or without assistive devices. 6-Owyzvzwnpg-xhonzru completes the activity by him/herself with no assistance from a helper. 5-Set-up or Clean-up Assistance-helper sets up or cleans up; patient completes activity. [place] assists only prior to or following the activity. 4-Supervision or Touching Assistance-helper provides verbal cues and/or touching/steadying and/or contact guard assistance as patient completes activity. Assistance may be provided throughout the activity or intermittently. 3-Partial/Moderate Assistance-helper does LESS THAN HALF the effort. [place] lifts, holds or supports trunk or limbs, but provides less than half the effort. 2-Substantial/Maximal Assistance-helper does MORE THAN HALF the effort. [place] lifts or holds trunk or limbs and provides more than half the effort. 1-Nmnkbgait-alqube does ALL the effort. Patient does none of the effort to complete the activity. Or, the assistance of 2 or more helpers is required for the patient to complete the activity. If activity was not attempted, code reason: 7-Patient Refused. 9-Not Applicable-not attempted and the patient did not perform the activity before the current illness, exacerbation or injury. 10-Not Attempted due to Environmental Limitations-(lack of equipment, weather restraints, etc.). 88-Not Attempted due to Medical Conditions or Safety Concerns. Eating (QC): 6 Oral Hygiene (QC): 6 Upper Body Dressing (QC): 4 On/Off Footwear: 6 Toileting Hygiene (QC): 6 Toilet Transfer (QC): 6 Pt finishing breakfast at OT arrival, no longer requires use of built up handles. He declined shower but agreeable to perform tomorrow. Mod I for donning socks with use of sock aid and standing for grooming tasks at sink. Pt continues to attempt to don brace in standing. Cue to sit to perform. Extra time to reach around back but no assist needed this session. Poor insight into reasoning for wearing brace. Pt likely non-compliant when at home. Other Treatment Pt participated in multiple standing activities with goal to promote increased endurance, balance, safety and proper body mechanics needed for functional tasks. Pt able to tolerate >11 min of activity before needing a rest break this date. 2# ke wrist weights donned for added strengthening component throughout all activities. No lob or unsteadiness noted during dynamic balance activities and good recall of residential property consultant when needing to retrieve items from low height. Pt able to ambulate short distances without walker, no LOB, close sup for safety. In sitting, pt participated in UE exercises with 3# dumbbell. 20x1 in all planes, min cues for speed of movement. Shoulder exercises performed to 90 degrees only secondary to c/o mild shoulder pain prior to exercises. No c/o pain during exercise. Education OT Patient Education: Correct positioning, Energy conservation, Exercise program, Modified ADL techniques, Progress toward Goal/Update tx plan, Purpose of tx/functional activities, Reviewed precautions, Rehab process, Safety issues Teaching Recipient: Patient Teaching Methods: Demonstration, Discussion Response to Teaching: Return Demonstration, Reinforcement Needed OT Short Term Goals Short Term Goals Eatin Oral hygiene: 4 Toileting hygiene: 4 Shower/bathe self: 3 Upper body dressin Lower body dressin Putting on/taking off footwear: 3 OT Shelter Goals Shelter Goals Eating (QC): 6 Oral Hygiene (QC): 6 Toileting Hygiene (QC): 6 Shower/Bathe Self (QC): 4 Upper Body Dressing (QC): 4 Lower Body Dressing (QC): 5 On/Off Footwear (QC): 5 1=Demonstrate adherence to instructed precautions during ADL tasks. 2=Patient will verbalize/demonstrate understanding of assistive devices/modifications for ADL. 3=Patient will improve strength/tolerance for activity to enable patient to perform ADL's. OT Education/Plan Problem List/Assessment Assessment: Decreased Activ Tolerance, Decreased Safety Aware, Impaired I ADL's Discharge Recommendations Plan/Recommendations: Continue POC Therapy Discharge Recommendati: Homemaker Support Target Placement Home health Treatment Plan/Plan of Care Treatment,Training & Education: Yes Patient would benefit from OT for education, treatment and training to promote independence in ADL's, mobility, safety and/or upper extremity function for ADL's. Plan of Care: ADL Retraining, Functional Mobility, Group Exercise/Act as Ind, Orthotic Fitting/Training, UE Funct Exercise/Act Treatment Duration: Mar 09, 2021 Frequency: At least 5 of 7 days/Wk (IRF) Estimated Hrs Per Day: 1.5 hours per day Agreement: Yes Rehab Potential: Fair Time/GCodes Start Time: 07:42 Stop Time: 09:12 Total Time Billed (hr/min): 90 Billed Treatment Time 1 visit, ADL x2 (25 min) FA x2 (30 min) EX x2 (35 min) Lo Riley OT Mar 02, 2021 09:19
[2021-03-02] MEDS: FUROSEMIDE 40 MG (LASIX) TAB PO SCH (09:28)
[2021-03-02] MEDS: ASPIRIN 81 MG CHEW (CHILDREN'S ASA) PO SCH (09:28)
[2021-03-02] MEDS: VITAMIN D3 125 MCG (5,000 UNITS) CAPSULE PO SCH (09:28)
[2021-03-02] MEDS: VITAMIN E 180 MG (400 UNITS) CAP PO SCH (09:28)
[2021-03-02] MEDS: PANTOPRAZOLE 20 MG TABLET (PROTONIX) PO SCH (09:28)
[2021-03-02] MEDS: oxyCODONE ER 10 MG (OxyCONTIN CR) TAB PO SCH ×2 (09:28→19:20)
[2021-03-02] MEDS: NIACIN ER (NIASPAN) 500 MG TAB PO SCH ×2 (09:28→18:08)
[2021-03-02] MEDS: CLOPIDOGREL 75 MG (PLAVIX) TABLET PO SCH (09:28)
[2021-03-02] MEDS: RED YEAST RICE 600 MG PO SCH ×2 (09:29→18:09)
[2021-03-02] MEDS: MICONAZOLE 2% POWDER (DESENEX AF) 90 GM TOP SCH ×2 (09:29→19:20)
[2021-03-02] MEDS: polyethylene glycoL POWDER 17 GM (MIRALAX) PACK PO SCH (09:35)
[2021-03-02] MEDS: SENNA W/DOCUSATE (SENOKOT S) TABLET PO SCH ×2 (09:36→19:24)
[2021-03-02] MEDS: DOCUSATE SODIUM 100 MG (COLACE) CAP PO SCH ×2 (09:37→19:24)
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
--- NOTE | 2021-03-02 11:34 | Physical Therapy Daily Note ---
PT Daily Note-Current Subjective Pt sitting in recliner upon arrival. Pt agrees to PT. Pain Location: No Pain Reported Mental Status Patient Orientation: Person, Place, Time, Situation Attachments: Other-See Comments (TLSO Brace) Transfers SCALE: Activities may be completed with or without assistive devices. 8-Zlistcuqfz-oaftwrt completes the activity by him/herself with no assistance from a helper. 5-Set-up or Clean-up Assistance-helper sets up or cleans up; patient completes activity. [place] assists only prior to or following the activity. 4-Supervision or Touching Assistance-helper provides verbal cues and/or touching/steadying and/or contact guard assistance as patient completes activity. Assistance may be provided throughout the activity or intermittently. 3-Partial/Moderate Assistance-helper does LESS THAN HALF the effort. [place] lifts, holds or supports trunk or limbs, but provides less than half the effort. 2-Substantial/Maximal Assistance-helper does MORE THAN HALF the effort. [place] lifts or holds trunk or limbs and provides more than half the effort. 2-Ftwmllxvc-srbueq does ALL the effort. Patient does none of the effort to complete the activity. Or, the assistance of 2 or more helpers is required for the patient to complete the activity. If activity was not attempted, code reason: 7-Patient Refused. 9-Not Applicable-not attempted and the patient did not perform the activity before the current illness, exacerbation or injury. 10-Not Attempted due to Environmental Limitations-(lack of equipment, weather restraints, etc.). 88-Not Attempted due to Medical Conditions or Safety Concerns. Sit to Stand (QC): 5 Toilet Transfer (QC): 5 Weight Bearing Right Lower Extremity: Right Weight Bearing/Tolerated Left Lower Extremity: Left Weight Bearing/Tolerated Gait Training Does the Patient Walk?: Yes Distance: 450', 200' Walk 10 feet (QC): 5 Walk 50 ft with 2 Turns(QC): 5 Walk 150 ft (QC): 5 Gait Persons Needed: 1 Gait Assistive Device: FWW Wheelchair Training Does the Pt Use a Wheelchair?: No Exercises NuStep Minutes: 15 NuStep Workload: 4 Treatments TF to standing and asks to use BR. Amb. in hallway before taking short RB. Pt uses NuStep for 15m at WL 4. Pt amb. in hallway again then returns to room to rest in recliner with all needs met, call light in hand. Assessment Current Status: Good Progress Pt has improved with strength, activity tolerance, mobility and independence of task. PT Short Term Goals Short Term Goals Time Frame: Feb 23, 2021 Roll Left & Right: 3 Sit to lyin Lying to sitting on side of be: 3 Sit to stand: 4 Chair/nzu-md-ediob transfer: 4 Walk 10 feet: 4 Walk 50 feet with two turns: 4 Walk 150 feet: 4 PT Penitentiary Goals Penitentiary Goals PT Metal Stud Framer Goals Time Frame: Mar 09, 2021 Roll Left & Right (QC): 6 Sit to Lying (QC): 6 Lying-Sitting on Side/Bed(QC): 6 Sit to Stand (QC): 6 Chair/Xii-oa-Sxmgr Xfer(QC): 6 Toilet Transfer (QC): 6 Car Transfer (QC): 6 Does the Patient Walk: Yes Walk 10 feet (QC): 6 Walk 50ft with 2 Turns (QC): 6 Walk 150 ft (QC): 6 Walking 10ft on Uneven Surface: 6 1 Step (curb) (QC): 4 4 Steps (QC): 4 12 Steps (QC): 88 Picking up an Object (QC): 88 Wheel 50 feet with 2 turns (QC: 9 Wheel 150 feet: 9 PT Plan Problem List Problem List: Activity Tolerance Treatment/Plan Treatment Plan: Continue Plan of Care Treatment Plan: Bed Mobility, Education, Functional Activity J Luis, Functional Strength, Group Therapy, Gait, Safety, Therapeutic Exercise, Transfers Treatment Duration: Mar 09, 2021 Frequency: At least 5 of 7 days/Wk (IRF) Estimated Hrs Per Day: 1.5 hours per day Patient and/or Family Agrees t: Yes Safety Risks/Education Patient Education: Reviewed Don/Doff Brace Teaching Recipient: Patient Teaching Methods: Discussion Response to Teaching: Verbalize Understanding Time/GCodes Time In: 1030 Time Out: 1130 Total Billed Treatment Time: 60 Total Billed Treatment 1, GT x2 (30m), FA (15m) & EX (15m) ANJU LOWRY MAIL INSERTER Mar 02, 2021 11:34
[2021-03-02] MEDS: OMEGA 3 (FISH OIL) 1000 MG CAP PO SCH (11:54)
[2021-03-02] MEDS: ENOXAPARIN 40 MG/0.4 ML (LOVENOX) SYR SC SCH (13:12)
--- NOTE | 2021-03-02 13:38 | Physical Therapy Daily Note ---
PT Daily Note-Current Subjective Pt sitting up in recliner upon arrival. Pt agrees to PT. Pain Numeric Pain Scale: 5-Moderate Pain Location Body Site: Back Pain Description: Ache Mental Status Patient Orientation: Person, Place, Time, Situation Attachments: Other-See Comments (TLSO Brace) Transfers SCALE: Activities may be completed with or without assistive devices. 7-Hkeihutbxn-xcatkvs completes the activity by him/herself with no assistance from a helper. 5-Set-up or Clean-up Assistance-helper sets up or cleans up; patient completes activity. [place] assists only prior to or following the activity. 4-Supervision or Touching Assistance-helper provides verbal cues and/or touching/steadying and/or contact guard assistance as patient completes activity. Assistance may be provided throughout the activity or intermittently. 3-Partial/Moderate Assistance-helper does LESS THAN HALF the effort. [place] lifts, holds or supports trunk or limbs, but provides less than half the effort. 2-Substantial/Maximal Assistance-helper does MORE THAN HALF the effort. [place] lifts or holds trunk or limbs and provides more than half the effort. 9-Enlqswqoo-kxwfie does ALL the effort. Patient does none of the effort to complete the activity. Or, the assistance of 2 or more helpers is required for the patient to complete the activity. If activity was not attempted, code reason: 7-Patient Refused. 9-Not Applicable-not attempted and the patient did not perform the activity before the current illness, exacerbation or injury. 10-Not Attempted due to Environmental Limitations-(lack of equipment, weather restraints, etc.). 88-Not Attempted due to Medical Conditions or Safety Concerns. Sit to Stand (QC): 5 Weight Bearing Right Lower Extremity: Right Weight Bearing/Tolerated Left Lower Extremity: Left Weight Bearing/Tolerated Wheelchair Training Does the Pt Use a Wheelchair?: No Treatments Pt tried to reposition in chair to comfort. Nurse was asked and pt given a pain pill. Pt wants to try standing to relieve pain. Pt eventually asks to try arm chair for positioning. Pt has all needs met, call light next to pt. Assessment Current Status: Good Progress Pain limits afternoon tx. PT Short Term Goals Short Term Goals Time Frame: Feb 23, 2021 Roll Left & Right: 3 Sit to lyin Lying to sitting on side of be: 3 Sit to stand: 4 Chair/apr-em-dzocb transfer: 4 Walk 10 feet: 4 Walk 50 feet with two turns: 4 Walk 150 feet: 4 PT Fdc Goals [place] Fountain Clerk Goals PT Soda Fountain Clerk Goals Time Frame: Mar 09, 2021 Roll Left & Right (QC): 6 Sit to Lying (QC): 6 Lying-Sitting on Side/Bed(QC): 6 Sit to Stand (QC): 6 Chair/Jig-wu-Rpxey Xfer(QC): 6 Toilet Transfer (QC): 6 Car Transfer (QC): 6 Does the Patient Walk: Yes Walk 10 feet (QC): 6 Walk 50ft with 2 Turns (QC): 6 Walk 150 ft (QC): 6 Walking 10ft on Uneven Surface: 6 1 Step (curb) (QC): 4 4 Steps (QC): 4 12 Steps (QC): 88 Picking up an Object (QC): 88 Wheel 50 feet with 2 turns (QC: 9 Wheel 150 feet: 9 PT Plan Problem List Problem List: Activity Tolerance Treatment/Plan Treatment Plan: Continue Plan of Care Treatment Plan: Bed Mobility, Education, Functional Activity J Luis, Functional Strength, Group Therapy, Gait, Safety, Therapeutic Exercise, Transfers Treatment Duration: Mar 09, 2021 Frequency: At least 5 of 7 days/Wk (IRF) Estimated Hrs Per Day: 1.5 hours per day Patient and/or Family Agrees t: Yes Safety Risks/Education Patient Education: Correct Positioning Teaching Recipient: Patient Teaching Methods: Discussion Response to Teaching: Verbalize Understanding Time/GCodes Time In: 1300 Time Out: 1330 Total Billed Treatment Time: 30 Total Billed Treatment 1, FA x2 (30m) ANJU LOWRY PTA Mar 02, 2021 13:38
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
[2021-03-02 19:25] VITALS: BP 122/60
[2021-03-03] MEDS: CYANOCOBALAMIN 1,000 MCG (VITAMIN B-12) TABLET PO SCH (06:11)
[2021-03-03 07:26] VITALS: BP 108/51
[2021-03-03] MEDS: RED YEAST RICE 600 MG PO SCH ×2 (08:42→18:27)
[2021-03-03] MEDS: NIACIN ER (NIASPAN) 500 MG TAB PO SCH ×2 (08:42→18:27)
[2021-03-03] MEDS: CLOPIDOGREL 75 MG (PLAVIX) TABLET PO SCH (08:42)
[2021-03-03] MEDS: ASPIRIN 81 MG CHEW (CHILDREN'S ASA) PO SCH (08:42)
[2021-03-03] MEDS: VITAMIN D3 125 MCG (5,000 UNITS) CAPSULE PO SCH (08:42)
[2021-03-03] MEDS: PANTOPRAZOLE 20 MG TABLET (PROTONIX) PO SCH (08:42)
[2021-03-03] MEDS: VITAMIN E 180 MG (400 UNITS) CAP PO SCH (08:42)
[2021-03-03] MEDS: oxyCODONE ER 10 MG (OxyCONTIN CR) TAB PO SCH ×2 (08:43→20:23)
[2021-03-03] MEDS: FUROSEMIDE 40 MG (LASIX) TAB PO SCH (08:43)
[2021-03-03] MEDS: MICONAZOLE 2% POWDER (DESENEX AF) 90 GM TOP SCH ×2 (08:43→20:24)
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
--- NOTE | 2021-03-03 09:25 | Occupational Ther Daily Note ---
OT Current Status-Daily Note Subjective When asked if pt will wear brace post d/c, pt verbalizes "no, probably not." Appearance Pt left sitting in chair, all needs within reach at end of session. ADL-Treatment Therapy Code Descriptions/Definitions Functional [place] Measure: 0=Not Assessed/NA 4=Minimal Assistance 1=Total Assistance 5=Supervision or Setup 2=Maximal Assistance 6=Modified [place] 3=Moderate Assistance 7=Complete IndependenceSCALE: Activities may be completed with or without assistive devices. 8-Hhbwqidumh-wxrbrgf completes the activity by him/herself with no assistance f rom a helper. 5-Set-up or Clean-up Assistance-helper sets up or cleans up; patient completes activity. [place] assists only prior to or following the activity. 4-Supervision or Touching Assistance-helper provides verbal cues and/or touching/steadying and/or contact guard assistance as patient completes activity. Assistance may be provided throughout the activity or intermittently. 3-Partial/Moderate Assistance-helper does LESS THAN HALF the effort. [place] lifts, holds or supports trunk or limbs, but provides less than half the effort. 2-Substantial/Maximal Assistance-helper does MORE THAN HALF the effort. [place] lifts or holds trunk or limbs and provides more than half the effort. 2-Uspcvjghz-pbfaym does ALL the effort. Patient does none of the effort to complete the activity. Or, the assistance of 2 or more helpers is required for the patient to complete the activity. If activity was not attempted, code reason: 7-Patient Refused. 9-Not Applicable-not attempted and the patient did not perform the activity before the current illness, exacerbation or injury. 10-Not Attempted due to Environmental Limitations-(lack of equipment, weather restraints, etc.). 88-Not Attempted due to Medical Conditions or Safety Concerns. Eating (QC): 6 Oral Hygiene (QC): 6 Bathing Location: L Arm, R Arm, L Upper Leg, R Upper Leg, L Lower Leg (including foot), R Lower Leg (including foot), Chest, Abdomen, Buttocks, Perineal Area Shower/Bathe Self (QC): 4 Upper Body Dressing (QC): 5 Lower Body Dressing (QC): 4 On/Off Footwear: 6 Toileting Hygiene (QC): 6 Toilet Transfer (QC): 4 Pt ambulating in room without brace on at OT arrival. He now refuses to wear TLSO brace when in room. Re-education provided, pt continues to be non- compliant. He verbalizes that he is doing more injury to body by donning/doffing brace throughout day. Education on keeping brace donned as much as tolerable vs doffing several times a day. Shower performed. Encouragement and education to perform 100% in sitting with brace doffed, yet pt continues to stand throughout task. Pt able to reach all body parts and uses long handle sponge to wash below knees. Set up to don brace post shower. Pt attempts to stand to don pants with single UE support on sliding door. Cue to sit or use grab bar for improved stability. Supervision/SBA throughout ADLS only secondary to poor safety awareness. No lob or unsteadiness observed. He stood at sink for grooming tasks, mod I for safety. Other Treatment Pt ambulated to/from therapy gym without assistive device, close sup for safety. No signs of unsteadiness. He performed UE exercises in both sitting and standing with 3# hand held weight. Goal to promote increased balance, strength, and e ndurance needed for functional tasks. 20 x1 in all planes. Good tolerance. Education provided on home set up and possible modifications needed in order to maintain back precautions. Education OT Patient Education: Correct positioning, Energy conservation, Exercise program, Instructions don/doff splint/brace, Modified ADL techniques, Progress toward Goal/Update tx plan, Purpose of tx/functional activities, Reviewed precautions, Safety issues Teaching Recipient: Patient Teaching Methods: Discussion Response to Teaching: Return Demonstration, Reinforcement Needed OT Short Term Goals Short Term Goals Eatin Oral hygiene: 4 Toileting hygiene: 4 Shower/bathe self: 3 Upper body dressin Lower body dressin Putting on/taking off footwear: 3 OT Long-Term Goals Events Assistant Goals Eating (QC): 6 Oral Hygiene (QC): 6 Toileting Hygiene (QC): 6 Shower/Bathe Self (QC): 4 Upper Body Dressing (QC): 4 Lower Body Dressing (QC): 5 On/Off Footwear (QC): 5 1=Demonstrate adherence to instructed precautions during ADL tasks. 2=Patient will verbalize/demonstrate understanding of assistive devices/modifications for ADL. 3=Patient will improve strength/tolerance for activity to enable patient to perform ADL's. OT Education/Plan Problem List/Assessment Assessment: Decreased Activ Tolerance, Decreased Safety Aware, Impaired I ADL's Discharge Recommendations Plan/Recommendations: Continue POC Therapy Discharge Recommendati: Homemaker Support, Home & Family Equpiment Recommendations-D/C: Metal Furniture Polisher, Sock Aide Treatment Plan/Plan of Care Treatment,Training & Education: Yes Patient would benefit from OT for education, treatment and training to promote independence in ADL's, mobility, safety and/or upper extremity function for ADL's. Plan of Care: ADL Retraining, Functional Mobility, Group Exercise/Act as Ind, Orthotic Fitting/Training, UE Funct Exercise/Act Treatment Duration: Mar 09, 2021 Frequency: At least 5 of 7 days/Wk (IRF) Estimated Hrs Per Day: 1.5 hours per day Agreement: Yes Rehab Potential: Fair Time/GCodes Start Time: 07:48 Stop Time: 09:18 Total Time Billed (hr/min): 90 Billed Treatment Time 1 visit, ADL x4 (55) EX x2 (35) Lo Riley OT Mar 03, 2021 09:25
[2021-03-03] MEDS: SENNA W/DOCUSATE (SENOKOT S) TABLET PO SCH ×2 (09:58→19:12)
[2021-03-03] MEDS: polyethylene glycoL POWDER 17 GM (MIRALAX) PACK PO SCH (09:58)
[2021-03-03] MEDS: DOCUSATE SODIUM 100 MG (COLACE) CAP PO SCH ×2 (09:58→19:12)
--- NOTE | 2021-03-03 12:16 | Physical Therapy Daily Note ---
PT Daily Note-Current Subjective Pt sitting in recliner visiting with daughter & SW upon arrival. Pt agrees to PT. Pain Location: No Pain Reported Mental Status Patient Orientation: Person, Place, Time, Situation Attachments: Other-See Comments (TLSO brace) Transfers SCALE: Activities may be completed with or without assistive devices. 6-Pmgkkgbkyb-altydbq completes the activity by him/herself with no assistance from a helper. 5-Set-up or Clean-up Assistance-helper sets up or cleans up; patient completes activity. [place] assists only prior to or following the activity. 4-Supervision or Touching Assistance-helper provides verbal cues and/or touching/steadying and/or contact guard assistance as patient completes activity. Assistance may be provided throughout the activity or intermittently. 3-Partial/Moderate Assistance-helper does LESS THAN HALF the effort. [place] lifts, holds or supports trunk or limbs, but provides less than half the effort. 2-Substantial/Maximal Assistance-helper does MORE THAN HALF the effort. [place] lifts or holds trunk or limbs and provides more than half the effort. 4-Kvjkycwtt-edqkwh does ALL the effort. Patient does none of the effort to complete the activity. Or, the assistance of 2 or more helpers is required for the patient to complete the activity. If activity was not attempted, code reason: 7-Patient Refused. 9-Not Applicable-not attempted and the patient did not perform the activity before the current illness, exacerbation or injury. 10-Not Attempted due to Environmental Limitations-(lack of equipment, weather restraints, etc.). 88-Not Attempted due to Medical Conditions or Safety Concerns. Sit to Stand (QC): 5 Toilet Transfer (QC): 5 Weight Bearing Right Lower Extremity: Right Weight Bearing/Tolerated Left Lower Extremity: Left Weight Bearing/Tolerated Gait Training Does the Patient Walk?: Yes Distance: 250' Walk 10 feet (QC): 5 Walk 50 ft with 2 Turns(QC): 5 Walk 150 ft (QC): 5 Gait Persons Needed: 1 Gait Assistive Device: None Wheelchair Training Does the Pt Use a Wheelchair?: No Stair Training Stair Training: Handrails/: 2 handrails #of Steps: 4 1 Step (curb) (QC): 5 4 Steps (QC): 5 Exercises Seated Therapy Exercises: Ankle pumps, Long arc quads, Hip flexion, Kicking activity, Hip abd/add, Glut set Seated Reps: 15 NuStep Minutes: 10 NuStep Workload: 5 Treatments SW visiting with pt & daughter about ARU meeting and what progress has been made, equipment needed and when pt might d/c. Pt transfers to standing and amb. to BR. After finishing, pt amb. in hallway. Pt takes short RB then uses NuStep for 10m at WL 5 until pt needs to take a break as pt is starting to feel discomfort along chest & back. Pt completes Seated Ex after taking a RB. Pt amb. 1 set of 4 steps. Pt amb. in hallway before returning to room to rest at recliner. All needs met, call light in hand. Assessment Current Status: Good Progress Pt tolerates tx well. PT Short Term Goals Short Term Goals Time Frame: Feb 23, 2021 Roll Left & Right: 3 Sit to lyin Lying to sitting on side of be: 3 Sit to stand: 4 Chair/ebd-zx-dvpah transfer: 4 Walk 10 feet: 4 Walk 50 feet with two turns: 4 Walk 150 feet: 4 PT Learning And Development Administrator Goals Learning And Development Administrator Goals PT Intermediate Goals Time Frame: Mar 09, 2021 Roll Left & Right (QC): 6 Sit to Lying (QC): 6 Lying-Sitting on Side/Bed(QC): 6 Sit to Stand (QC): 6 Chair/Odf-hm-Qyliz Xfer(QC): 6 Toilet Transfer (QC): 6 Car Transfer (QC): 6 Does the Patient Walk: Yes Walk 10 feet (QC): 6 Walk 50ft with 2 Turns (QC): 6 Walk 150 ft (QC): 6 Walking 10ft on Uneven Surface: 6 1 Step (curb) (QC): 4 4 Steps (QC): 4 12 Steps (QC): 88 Picking up an Object (QC): 88 Wheel 50 feet with 2 turns (QC: 9 Wheel 150 feet: 9 PT Plan Treatment/Plan Treatment Plan: Continue Plan of Care Treatment Plan: Bed Mobility, Education, Functional Activity J Luis, Functional Strength, Group Therapy, Gait, Safety, Therapeutic Exercise, Transfers Treatment Duration: Mar 09, 2021 Frequency: At least 5 of 7 days/Wk (IRF) Estimated Hrs Per Day: 1.5 hours per day Patient and/or Family Agrees t: Yes Safety Risks/Education Patient Education: Steps, Reviewed Don/Doff Brace Teaching Recipient: Patient Teaching Methods: Discussion Response to Teaching: Verbalize Understanding Time/GCodes Time In: 1030 Time Out: 1200 Total Billed Treatment Time: 90 Total Billed Treatment 1, FA x2 (30m), GT x2 (30m) & EX x2 (30m) ANJU LOWRY INTERNAL REVENUE AGENT Mar 03, 2021 12:16
[2021-03-03] MEDS: OMEGA 3 (FISH OIL) 1000 MG CAP PO SCH (13:13)
[2021-03-03] MEDS: ENOXAPARIN 40 MG/0.4 ML (LOVENOX) SYR SC SCH (13:13)
[2021-03-03 20:28] VITALS: BP 132/61
[2021-03-04] MEDS: CYANOCOBALAMIN 1,000 MCG (VITAMIN B-12) TABLET PO SCH (05:45)
[2021-03-04 07:37] VITALS: BP 125/58
[2021-03-04] MEDS: polyethylene glycoL POWDER 17 GM (MIRALAX) PACK PO SCH (08:03)
[2021-03-04] MEDS: DOCUSATE SODIUM 100 MG (COLACE) CAP PO SCH ×2 (08:03→20:36)
[2021-03-04] MEDS: NIACIN ER (NIASPAN) 500 MG TAB PO SCH ×2 (08:03→18:19)
[2021-03-04] MEDS: SENNA W/DOCUSATE (SENOKOT S) TABLET PO SCH ×2 (08:03→20:35)
[2021-03-04] MEDS: VITAMIN D3 125 MCG (5,000 UNITS) CAPSULE PO SCH (08:03)
[2021-03-04] MEDS: RED YEAST RICE 600 MG PO SCH ×2 (08:03→18:19)
[2021-03-04] MEDS: CLOPIDOGREL 75 MG (PLAVIX) TABLET PO SCH (08:03)
[2021-03-04] MEDS: FUROSEMIDE 40 MG (LASIX) TAB PO SCH (08:03)
[2021-03-04] MEDS: ASPIRIN 81 MG CHEW (CHILDREN'S ASA) PO SCH (08:03)
[2021-03-04] MEDS: oxyCODONE ER 10 MG (OxyCONTIN CR) TAB PO SCH ×2 (08:03→20:36)
[2021-03-04] MEDS: VITAMIN E 180 MG (400 UNITS) CAP PO SCH (08:03)
[2021-03-04] MEDS: PANTOPRAZOLE 20 MG TABLET (PROTONIX) PO SCH (08:04)
[2021-03-04] MEDS: MICONAZOLE 2% POWDER (DESENEX AF) 90 GM TOP SCH ×2 (08:18→20:38)
--- NOTE | 2021-03-04 09:28 | Occupational Ther Daily Note ---
OT Current Status-Daily Note Subjective Pt reports pain as 6/10 towards end of session, RN notified, meds given. Appearance Pt left sitting in chair with physical therapy present. Mental Status/Objective Patient Orientation: Person, Place, Time, Situation ADL-Treatment Therapy Code Descriptions/Definitions Functional [place] Measure: 0=Not Assessed/NA 4=Minimal Assistance 1=Total Assistance 5=Supervision or Setup 2=Maximal Assistance 6=Modified [place] 3=Moderate Assistance 7=Complete IndependenceSCALE: Activities may be completed with or without assistive devices. 2-Soxfdfjxax-negqtye completes the activity by him/herself with no assistance from a helper. 5-Set-up or Clean-up Assistance-helper sets up or cleans up; patient completes activity. [place] assists only prior to or following the activity. 4-Supervision or Touching Assistance-helper provides verbal cues and/or touching/steadying and/or contact guard assistance as patient completes activity. Assistance may be provided throughout the activity or intermittently. 3-Partial/Moderate Assistance-helper does LESS THAN HALF the effort. [place] lifts, holds or supports trunk or limbs, but provides less than half the effort. 2-Substantial/Maximal Assistance-helper does MORE THAN HALF the effort. [place] lifts or holds trunk or limbs and provides more than half the effort. 5-Irwpwqqdg-iydlis does ALL the effort. Patient does none of the effort to complete the activity. Or, the assistance of 2 or more helpers is required for the patient to complete the activity. If activity was not attempted, code reason: 7-Patient Refused. 9-Not Applicable-not attempted and the patient did not perform the activity before the current illness, exacerbation or injury. 10-Not Attempted due to Environmental Limitations-(lack of equipment, weather restraints, etc.). 88-Not Attempted due to Medical Conditions or Safety Concerns. Eating (QC): 6 Oral Hygiene (QC): 6 Upper Body Dressing (QC): 6 On/Off Footwear: 6 Toileting Hygiene (QC): 6 Toilet Transfer (QC): 6 Pt initially declined wearing brace in room. With encouragement, he agreed to wearing this date. He was able to don brace without any assist/cues. He ambulated around room/unit independently, no AD. He stood at sink for grooming tasks, indep. Socks donned with use of sock aid, improved speed of task noted. 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 He demonstrated good body mechanics by performing mini squats and using butcher assistant when needed. No cues for adherence to spinal precautions needed. Good use of energy conservation techniques as he gathered similar color cones (each color represents different types of dishes-cups, plates, silverware, etc) and put them "away" in groups vs one at a time. No lob when reaching in overhead cabinets and good activity tolerance exhibited. One cue for safety to ensure cabinets were closed as pt almost bumped head into open cabinet door. Prior to activity, OT educated pt on adaptive techniques such as sliding "heavier" weighted objects on counter vs carrying. Good follow through without cues during activity. Pt also performed UE exercises in both sitting and standing with 3# hand held weight. Goal to promote increased balance, strength, and endurance needed for functional tasks. 20 x1 in all planes. Pt able to recall all but 2 exercises learned in past sessions. Co-treat with PT ([id number]) 2 clinicians required to increase functional mobility, stamina, higher level balance and endurance. Education from both PT/OT on upcoming discharge and expectations. Education OT Patient Education: Correct positioning, Energy conservation, Exercise program, Modified ADL techniques, Progress toward Goal/Update tx plan, Purpose of tx/functional activities, Reviewed precautions, Rehab process, Use of adapted equipment Teaching Recipient: Patient Teaching Methods: Demonstration, Discussion Response to Teaching: Verbalize Understanding, Return Demonstration OT Short Term Goals Short Term Goals Eatin Oral hygiene: 4 Toileting hygiene: 4 Shower/bathe self: 3 Upper body dressin Lower body dressin Putting on/taking off footwear: 3 OT Advisory Services Associate Goals Advisory Services Associate Goals Eating (QC): 6 (met) Oral Hygiene (QC): 6 (met) Toileting Hygiene (QC): 6 (met) Shower/Bathe Self (QC): 4 (met) Upper Body Dressing (QC): 4 (met) Lower Body Dressing (QC): 5 (not met, SBA for safety) On/Off Footwear (QC): 5 (met) 1=Demonstrate adherence to instructed precautions during ADL tasks. 2=Patient will verbalize/demonstrate understanding of assistive devices/modifications for ADL. 3=Patient will improve strength/tolerance for activity to enable patient to perform ADL's. OT Education/Plan Problem List/Assessment Assessment: Impaired I ADL's Discharge Recommendations Plan/Recommendations: Discharge/Goals Met Therapy Discharge Recommendati: Home & Family Equpiment Recommendations-D/C: Bath Chair, Golf Club Head Former, Sock Aide Comment Pt reports family purchased needed equipment Treatment Plan/Plan of Care Treatment,Training & Education: Yes Patient would benefit from OT for education, treatment and training to promote independence in ADL's, mobility, safety and/or upper extremity function for ADL's. Plan of Care: ADL Retraining, Functional Mobility, Group Exercise/Act as Ind, Orthotic Fitting/Training, UE Funct Exercise/Act Treatment Duration: Mar 09, 2021 Frequency: At least 5 of 7 days/Wk (IRF) Estimated Hrs Per Day: 1.5 hours per day Agreement: Yes Rehab Potential: Fair Time/GCodes Start Time: 07:45 Stop Time: 09:15 Total Time Billed (hr/min): 90 Billed Treatment Time 1 visit, ADL (15 min) FA x 2 (35 min) EX x 3 (40 min) OT seen from [id number], Co treat with PT [id number] Lo Riley OT Mar 04, 2021 09:28
--- NOTE | 2021-03-04 10:02 | Physical Therapy Daily Note ---
PT Daily Note-Current Subjective Pt sitting in recliner working with OT upon arrival. Pt agrees to PT/Ot short co-treat then finish rest of tx with just PT. Pain Numeric Pain Scale: 6 Location Body Site: Back Pain Description: Ache Mental Status Patient Orientation: Person, Place, Time, Situation Attachments: Other-See Comments (TLSO Brace) Transfers SCALE: Activities may be completed with or without assistive devices. 6-Pmameerbui-axxfvnv completes the activity by him/herself with no assistance from a helper. 5-Set-up or Clean-up Assistance-helper sets up or cleans up; patient completes activity. [place] assists only prior to or following the activity. 4-Supervision or Touching Assistance-helper provides verbal cues and/or touching/steadying and/or contact guard assistance as patient completes activity. Assistance may be provided throughout the activity or intermittently. 3-Partial/Moderate Assistance-helper does LESS THAN HALF the effort. [place] lifts, holds or supports trunk or limbs, but provides less than half the effort. 2-Substantial/Maximal Assistance-helper does MORE THAN HALF the effort. [place] lifts or holds trunk or limbs and provides more than half the effort. 9-Iahwpllrv-rbhtqc does ALL the effort. Patient does none of the effort to complete the activity. Or, the assistance of 2 or more helpers is required for the patient to complete the activity. If activity was not attempted, code reason: 7-Patient Refused. 9-Not Applicable-not attempted and the patient did not perform the activity before the current illness, exacerbation or injury. 10-Not Attempted due to Environmental Limitations-(lack of equipment, weather restraints, etc.). 88-Not Attempted due to Medical Conditions or Safety Concerns. Roll Left & Right (QC): 6 Sit to Lying (QC): 6 Lying to Sitting/Side of Bed(Q: 6 Sit to Stand (QC): 6 Chair/Yek-vc-Mtcqu Xfer(QC): 6 Toilet Transfer (QC): 6 Car Transfer (QC): 6 Weight Bearing Right Lower Extremity: Right Weight Bearing/Tolerated Left Lower Extremity: Left Weight Bearing/Tolerated Gait Training Does the Patient Walk?: Yes Distance: 450', 150' Walk 10 feet (QC): 6 Walk 50 ft with 2 Turns(QC): 6 Walk 150 ft (QC): 6 Walking 10ft/uneven surface-QC: 6 Gait Persons Needed: 0 Gait Assistive Device: None Wheelchair Training Does the Pt Use a Wheelchair?: No Stair Training Stair Training: Handrails/: 2 handrails #of Steps: 4 1 Step (curb) (QC): 6 4 Steps (QC): 6 12 Steps (QC): 7 Stairs: Pattern: Reciprocal Pt advises only have 3 steps at daughter's house for the weekend then non at home. Balance Picking up an Object (QC): 88 Special Test Comments Pt will have cab station attendant at home and not attempted due to back precautions. Exercises NuStep Minutes: 15 NuStep Workload: 5 Treatments Co-treat with PT ([id number]) 2 clinicians required to increase functional mobility, stamina, higher level balance and endurance. Education from both PT/OT on upcoming discharge and expectations. Pt completes QC scoring listed above as well as extended ambulation and use NuStep for 15m at WL 5. Pt returns to room to rest with all needs met, call light in hand. Assessment Current Status: Good Progress Pt has gained strength, activity tolerance and mobility during his stay on ARU. PT Short Term Goals Short Term Goals Time Frame: Feb 23, 2021 Roll Left & Right: 3 Sit to lyin Lying to sitting on side of be: 3 Sit to stand: 4 Chair/ylh-xl-zdnmz transfer: 4 Walk 10 feet: 4 Walk 50 feet with two turns: 4 Walk 150 feet: 4 PT Manufacturing Mechanic Goals Residential Goals PT Manufacturing Mechanic Goals Time Frame: Mar 09, 2021 Roll Left & Right (QC): 6 Sit to Lying (QC): 6 Lying-Sitting on Side/Bed(QC): 6 Sit to Stand (QC): 6 Chair/Qan-th-Ginwr Xfer(QC): 6 Toilet Transfer (QC): 6 Car Transfer (QC): 6 Does the Patient Walk: Yes Walk 10 feet (QC): 6 Walk 50ft with 2 Turns (QC): 6 Walk 150 ft (QC): 6 Walking 10ft on Uneven Surface: 6 1 Step (curb) (QC): 4 4 Steps (QC): 4 12 Steps (QC): 88 Picking up an Object (QC): 88 Wheel 50 feet with 2 turns (QC: 9 Wheel 150 feet: 9 PT Plan Problem List Problem List: Activity Tolerance Treatment/Plan Treatment Plan: Continue Plan of Care Treatment Plan: Bed Mobility, Education, Functional Activity J Luis, Functional Strength, Group Therapy, Gait, Safety, Therapeutic Exercise, Transfers Treatment Duration: Mar 09, 2021 Frequency: At least 5 of 7 days/Wk (IRF) Estimated Hrs Per Day: 1.5 hours per day Patient and/or Family Agrees t: Yes Safety Risks/Education Patient Education: Reviewed Don/Doff Brace, Safety Issues Teaching Recipient: Patient Teaching Methods: Discussion Response to Teaching: Verbalize Understanding Time/GCodes Time In: 900 Time Out: 1000 Total Billed Treatment Time: 60 Total Billed Treatment Co-treat for 15m (770-322) 1, GT (15m), EX (15m) & FA x2 (30m) ANJU LOWRY OIL AND GAS DRAFTER Mar 04, 2021 10:02
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
[2021-03-04] MEDS: OMEGA 3 (FISH OIL) 1000 MG CAP PO SCH (12:12)
[2021-03-04] MEDS: ENOXAPARIN 40 MG/0.4 ML (LOVENOX) SYR SC SCH (13:52)
--- NOTE | 2021-03-04 14:08 | Physical Therapy Daily Note ---
PT Daily Note-Current Subjective Pt sitting in recliner upon arrival. Pt agrees to PT. Pt asks to move around room as needed since he has been more and more. Pain Location: No Pain Reported Mental Status Patient Orientation: Person, Place, Time, Situation Attachments: Other-See Comments (TLSO Brace) Transfers SCALE: Activities may be completed with or without assistive devices. 9-Dzpaaxlpls-omszzbp completes the activity by him/herself with no assistance from a helper. 5-Set-up or Clean-up Assistance-helper sets up or cleans up; patient completes activity. [place] assists only prior to or following the activity. 4-Supervision or Touching Assistance-helper provides verbal cues and/or touching/steadying and/or contact guard assistance as patient completes activity. Assistance may be provided throughout the activity or intermittently. 3-Partial/Moderate Assistance-helper does LESS THAN HALF the effort. [place] lifts, holds or supports trunk or limbs, but provides less than half the effort. 2-Substantial/Maximal Assistance-helper does MORE THAN HALF the effort. [place] lifts or holds trunk or limbs and provides more than half the effort. 5-Ohzwfwzif-yimsku does ALL the effort. Patient does none of the effort to complete the activity. Or, the assistance of 2 or more helpers is required for the patient to complete the activity. If activity was not attempted, code reason: 7-Patient Refused. 9-Not Applicable-not attempted and the patient did not perform the activity before the current illness, exacerbation or injury. 10-Not Attempted due to Environmental Limitations-(lack of equipment, weather restraints, etc.). 88-Not Attempted due to Medical Conditions or Safety Concerns. Sit to Stand (QC): 6 Toilet Transfer (QC): 6 Weight Bearing Right Lower Extremity: Right Weight Bearing/Tolerated Left Lower Extremity: Left Weight Bearing/Tolerated Gait Training Does the Patient Walk?: Yes Pt is walking around room as needed with no AD at Mod I. Wheelchair Training Does the Pt Use a Wheelchair?: No Treatments TF to standing and moves about room as needed for both use of BR and to stretch legs and back as they stiffen in recliner. Pt's laundry is taken to wash and belonging bags given as requested. Pt's daughter arrives at end of tx to help pt pack for d/c tomorrow. Assessment Current Status: Good Progress Pt wants to move as needed in room. As observed by JORDAN WORKER, pt is made Ad magan in room. PT Short Term Goals Short Term Goals Time Frame: Feb 23, 2021 Roll Left & Right: 3 Sit to lyin Lying to sitting on side of be: 3 Sit to stand: 4 Chair/eoo-cj-nhpov transfer: 4 Walk 10 feet: 4 Walk 50 feet with two turns: 4 Walk 150 feet: 4 PT Manager Winter Goals Manager Winter Goals PT Manager Winter Goals Time Frame: Mar 09, 2021 Roll Left & Right (QC): 6 Sit to Lying (QC): 6 Lying-Sitting on Side/Bed(QC): 6 Sit to Stand (QC): 6 Chair/Agb-iy-Jpenv Xfer(QC): 6 Toilet Transfer (QC): 6 Car Transfer (QC): 6 Does the Patient Walk: Yes Walk 10 feet (QC): 6 Walk 50ft with 2 Turns (QC): 6 Walk 150 ft (QC): 6 Walking 10ft on Uneven Surface: 6 1 Step (curb) (QC): 4 4 Steps (QC): 4 12 Steps (QC): 88 Picking up an Object (QC): 88 Wheel 50 feet with 2 turns (QC: 9 Wheel 150 feet: 9 PT Plan Treatment/Plan Treatment Plan: Continue Plan of Care Treatment Plan: Bed Mobility, Education, Functional Activity J Luis, Functional Strength, Group Therapy, Gait, Safety, Therapeutic Exercise, Transfers Treatment Duration: Mar 09, 2021 Frequency: At least 5 of 7 days/Wk (IRF) Estimated Hrs Per Day: 1.5 hours per day Patient and/or Family Agrees t: Yes Time/GCodes Time In: 1330 Time Out: 1400 Total Billed Treatment Time: 30 Total Billed Treatment 1, FA (10m) & GT (20m) ANJU LOWRY PTA Mar 04, 2021 14:08
[2021-03-04 20:00] VITALS: BP 117/56
[2021-03-04] MEDS: MELATONIN 3 MG TABLET PO PRN (20:36)
[2021-03-04] MEDS ORDERED: FURO40TA4 PO (20:37)
[2021-03-04] MEDS ORDERED: SENN1TAB76 PO (20:37)
[2021-03-04] MEDS ORDERED: MTP25TSR PO (20:37)
[2021-03-04] MEDS ORDERED: OXYC10TA55 PO (20:37)
[2021-03-04] MEDS ORDERED: CLOP75TA28 PO (20:37)
[2021-03-04] MEDS ORDERED: MICO90PO TOP (20:37)
[2021-03-04] MEDS ORDERED: OXC5T PO (20:37)
[2021-03-04] MEDS ORDERED: NIA500ERT PO (20:37)
[2021-03-04] MEDS ORDERED: ASPI-999 PO (20:37)
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
[2021-03-05] MEDS: CYANOCOBALAMIN 1,000 MCG (VITAMIN B-12) TABLET PO SCH (06:43)
[2021-03-05 08:00] VITALS: BP 112/56
[2021-03-05] MEDS: CLOPIDOGREL 75 MG (PLAVIX) TABLET PO SCH (08:14)
[2021-03-05] MEDS: VITAMIN D3 125 MCG (5,000 UNITS) CAPSULE PO SCH (08:14)
[2021-03-05] MEDS: PANTOPRAZOLE 20 MG TABLET (PROTONIX) PO SCH (08:14)
[2021-03-05] MEDS: FUROSEMIDE 40 MG (LASIX) TAB PO SCH (08:14)
[2021-03-05] MEDS: NIACIN ER (NIASPAN) 500 MG TAB PO SCH (08:14)
[2021-03-05] MEDS: ASPIRIN 81 MG CHEW (CHILDREN'S ASA) PO SCH (08:14)
[2021-03-05] MEDS: oxyCODONE ER 10 MG (OxyCONTIN CR) TAB PO SCH (08:14)
[2021-03-05] MEDS: VITAMIN E 180 MG (400 UNITS) CAP PO SCH (08:14)
[2021-03-05] MEDS: RED YEAST RICE 600 MG PO SCH (08:16)
[2021-03-05] MEDS: DOCUSATE SODIUM 100 MG (COLACE) CAP PO SCH (10:48)
[2021-03-05] MEDS: SENNA W/DOCUSATE (SENOKOT S) TABLET PO SCH (10:49)
[2021-03-05] MEDS: polyethylene glycoL POWDER 17 GM (MIRALAX) PACK PO SCH (10:49)
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
== END 2021-03-05 10:50 | disposition home or self-care (01) | DRG 559 ==
PROVIDERS: ADMIT Internal Medicine; ATTEND Internal Medicine
DX: S22.020D Wedge compression fracture of second thoracic vertebra, subsequent encounter for fracture with routine healing (principal); I50.23 Acute on chronic systolic (congestive) heart failure; I13.0 Hypertensive heart and chronic kidney disease with heart failure and stage 1 through stage 4 chronic kidney disease, or unspecified chronic kidney disease; C90.00 Multiple myeloma not having achieved remission; D62 Acute posthemorrhagic anemia; I42.9 Cardiomyopathy, unspecified; I47.2 Ventricular tachycardia; S22.22XD Fracture of body of sternum, subsequent encounter for fracture with routine healing; S92.514D Nondisplaced fracture of proximal phalanx of right lesser toe(s), subsequent encounter for fracture with routine healing; S93.621D Sprain of tarsometatarsal ligament of right foot, subsequent encounter; S50.312D Abrasion of left elbow, subsequent encounter; R26.9 Unspecified abnormalities of gait and mobility; M54.31 Sciatica, right side; N18.30 Chronic kidney disease, stage 3 unspecified; I25.10 Atherosclerotic heart disease of native coronary artery without angina pectoris; I48.91 Unspecified atrial fibrillation; E78.2 Mixed hyperlipidemia; E66.9 Obesity, unspecified; F32.9 Major depressive disorder, single episode, unspecified; F41.9 Anxiety disorder, unspecified; R59.0 Localized enlarged lymph nodes; I35.0 Nonrheumatic aortic (valve) stenosis; Z68.36 Body mass index [BMI] 36.0-36.9, adult; Z95.5 Presence of coronary angioplasty implant and graft; Z87.891 Personal history of nicotine dependence; Z79.02 Long term (current) use of antithrombotics/antiplatelets; Z79.82 Long term (current) use of aspirin; Z88.8 Allergy status to other drugs, medicaments and biological substances; V49.9XXD Car occupant (driver) (passenger) injured in unspecified traffic accident, subsequent encounter
CPT/HCPCS: 36415; 71046; 73630; 76536; 80048; 80053; 80061; 85025; 93005; 93306